=== PATIENT | female | born 1975 | race Caucasian/White ===

== ENCOUNTER 2020-03-14 10:20 | Outpatient (CLI) | payer OTHER, SELFPAY ==
--- NOTE | 2020-03-14 11:00 | NEURO_ITS ---
Patient Number: [id number] Impression: # Complains of numbness of hands. # No Carpal Tunnel Syndrome. # Left ulnar neuropathy across the elbow. # Normal needle/EMG exam. # Clinical correlation recommended. Nerve Conduction Studies Anti Sensory Summary Table Stim Site NR Peak (ms) P-T Amp (?V) Site1 Site2 Delta-P (ms) Dist (cm) Moisés (m/s) Left Median Anti Sensory (2-3nd Digit) Wrist 3.0 84.3 Wrist 2-3nd Digit 3.0 14.0 47 Wrist 3.1 70.1 Wrist 2-3nd Digit 3.0 14.0 47 Right Median Anti Sensory (2-3nd Digit) Wrist 3.1 9.8 Wrist 2-3nd Digit 3.1 14.0 45 Wrist 3.2 59.6 Wrist 2-3nd Digit 3.1 14.0 45 Left Radial Anti Sensory (Base 1st Digit) Wrist 2.0 52.4 Wrist Base 1st Digit 2.0 0.0 Right Radial Anti Sensory (Base 1st Digit) Wrist 2.0 48.3 Wrist Base 1st Digit 2.0 0.0 Left Ulnar Anti Sensory (5th Digit) Wrist 2.8 77.3 Wrist 5th Digit 2.8 14.0 50 Right Ulnar Anti Sensory (5th Digit) Wrist 2.7 46.4 Wrist 5th Digit 2.7 14.0 52 Motor Summary Table Stim Site NR Onset (ms) O-P Amp (mV) Site1 Site2 Delta-0 (ms) Dist (cm) Moisés (m/s) Left Median Motor (Abd Poll Brev) Wrist 3.6 5.6 Elbow Wrist 4.9 27.0 55 Elbow 8.5 2.4 Right Median Motor (Abd Poll Brev) Wrist 3.5 4.9 Elbow Wrist 4.8 26.0 54 Elbow 8.3 4.8 Left Ulnar Motor (Abd Dig Minimi) Wrist 3.0 6.5 A Elbow Wrist 5.0 26.0 52 A Elbow 8.0 6.2 B Elbow Wrist 4.1 22.0 54 B Elbow 7.1 5.9 Right Ulnar Motor (Abd Dig Minimi) Wrist 2.8 7.1 A Elbow Wrist 4.2 27.0 64 A Elbow 7.0 6.1 F Wave Studies NR F-Lat (ms) L-R F-Lat (ms) Left Median (Mrkrs) (Abd Poll Brev) 27.49 0.06 Right Median (Mrkrs) (Abd Poll Brev) 27.54 0.06 Left Ulnar (Mrkrs) (Abd Dig Min) 28.99 0.93 Right Ulnar (Mrkrs) (Abd Dig Min) 28.06 0.93 EMG Side Muscle Nerve Root Ins Act Fibs Amp Dur Recrt Comment Right 1stDorInt Ulnar C8-T1 Nml Nml Nml Nml Nml Right Ext Indicis Radial (Post Int) C7-8 Nml Nml Nml Nml Nml Right Ext Digitorum Radial (Post Int) C7-8 Nml Nml Nml Nml Nml Right BrachioRad Radial C5-6 Nml Nml Nml Nml Nml Right PronatorTeres Median C6-7 Nml Nml Nml Nml Nml Right Abd Poll Brev Median C8-T1 Nml Nml Nml Nml Nml Left 1stDorInt Ulnar C8-T1 Nml Nml Nml Nml Nml Left Ext Indicis Radial (Post Int) C7-8 Nml Nml Nml Nml Nml Left Ext Digitorum Radial (Post Int) C7-8 Nml Nml Nml Nml Nml Left BrachioRad Radial C5-6 Nml Nml Nml Nml Nml Left PronatorTeres Median C6-7 Nml Nml Nml Nml Nml Left Abd Poll Brev Median C8-T1 Nml Nml Nml Nml Nml MTDD
== END 2020-03-14 10:21 | disposition home or self-care (01) ==
LOC: ANHNEURO 10:22
PROVIDERS: PCP Family Medicine; Visit Provider Orthopaedic Surgery
DX: R20.0 Anesthesia of skin (principal); G56.22 Lesion of ulnar nerve, left upper limb
CPT/HCPCS: 95886; 95911

== ENCOUNTER 2020-06-20 14:59 | Emergency (ER) | payer OTHER, SELFPAY ==
--- NOTE | ~2020-06-20 | CT_ITS ---
EXAMINATION: CT abdomen pelvis wo con DATE: 06/20/2020 15:19 INDICATION: Abdominal pain, history of colon cancer TECHNIQUE: Computed tomography (CT) of the abdomen and pelvis was performed without intravenous contr ast. The dose-length product (DLP) was 625.36 mGy-cm. Automated exposure control and iterative recons truction technique were employed. COMPARISON: 01/23/2019 FINDINGS: Minimal dependent atelectasis is present in the lung bases. The heart size is normal. A 6 m m pleural-based nodule of the left lower lobe is stable. The gallbladder is surgically absent. Puncta te calcifications in an otherwise normal spleen likely represent healed granulomatous disease. The li lester, pancreas, adrenal glands, and kidneys are normal. No pathologically enlarged abdominal or pelvic lymph nodes are identified. There is no free intraperitoneal gas or evidence of bowel obstruction. T here is mild lumbar spondylosis. There are changes of appendectomy. IMPRESSION: 1. No CT correlate for the patient's symptoms. Reviewed, dictated and finalized at location B.
[2020-06-20 14:58] VITALS: BP 126/67; PULSE 87; RESP 24; TEMP 36.8; O2SAT 98
[2020-06-20] MEDS: SODIUM CHLORIDE 0.9% IV 1,000 ML 999 ML IV CONT (15:33)
--- NOTE | 2020-06-20 15:47 | ED.ABDPAIN ---
HPI - Abdominal Pain General Chief Complaint: Abdominal Pain Stated Complaint: ABD PAIN/BLOOD IN STOOL Source: patient History of Present Illness HPI narrative: 44 years old white female, history of colon cancer 5 years ago, chemotherapy for 2 years, presents with daughter Kristel blood mixed with stool today. Patient had 5 bowel movements so far. Patient also complaining of diffuse abdominal pain, denies any fever, chills, nausea, vomiting. Patient oncologist at [facility]. Patient is a smoker, denies drinking alcohol. Patient does not take blood thinner. History of Graves' disease mental disorder, epilepsy, muscular spasm on chronic pain medication patient have home health care Related Data Home Medications Medication Instructions Recorded Confirmed lacosamide [Vimpat] 200 mg PO Q12H 11/29/19 11/29/19 lacosamide [Vimpat] 200 mg PO Q12H 06/20/20 sertraline mg 06/20/20 Allergies Allergy/AdvReac Type Severity Reaction Status Date / Time adhesive Allergy Unknown Other Verified 06/16/20 09:34 hydrocodone Allergy Unknown Dyspnea / Verified 06/16/20 09:34 SOB oxycodone Allergy Unknown Rash Verified 06/16/20 09:34 Sulfa (Sulfonamide Allergy Rash Verified 06/20/20 15:02 Antibiotics) Review of Systems Review of Systems: Narrative: CONSTITUTIONAL: Denies fever, chills, or sweats. EYES: Denies visual changes, redness, or discharge. ENT: Denies rhinorrhea, congestion, sore throat, or otalgia. CARDIOVASCULAR: Denies chest pain, palpitations, or edema. RESPIRATORY: Denies cough or dyspnea. GASTROINTESTINAL: Denies abdominal pain, nausea, vomiting, or diarrhea. GENITOURINARY: Denies dysuria or hematuria. SKIN: Denies rash or itching. MUSCULOSKELETAL: Denies back pain, joint pain, or myalgia. NEUROLOGIC: Denies headache, numbness, or weakness. PSYCHIATRIC: Denies anxiety or depression. COUNT INCLUDES THE [facility] Past Medical History Medical History Bipolar disorder Bloating Colon cancer Depression Epilepsy Fibromyalgia Graves disease Insomnia Neuropathy PTSD (post-traumatic stress disorder) Restless leg syndrome Stroke Thyroid disorder Surgical History Surgical History H/O total hysterectomy History of appendectomy History of cholecystectomy Family History Family History Sibling Carcinoma of colon Other Family history of arthritis Family history of malignant neoplasm Social History Social History Smoking packs per day: 1 Smoking cigarettes per day: 20.0 Years smoked: 27 Smoking pack-years: 27.00 Smoking status: Former smoker Alcohol intake: never Substance use: never Exam Narrative: Exam Narrative: General appearance: Well-developed, well-nourished Skin: Normal color Head: Normocephalic, nontraumatic Eyes: Clear conjunctiva ENT: Oropharynx normal, ears normal, nose normal Neck: Supple, nontender Chest and respiratory: Airway patent, no respiratory distress, no accessory muscle use Heart: Regular rate/rhythm Abdomen: Soft, diffuse tenderness. Rectal exam showed no stool or blood in the rectal pouch, guaiac stool is negative Vascular: Normal peripheral pulses, normal capillary refill. Musculoskeletal: Normal range of motion, nontender back Neurologic: Alert and oriented ?3, DAYCARE DIRECT[employer] is normal as tested, no gross motor deficit Course Course Emergency Course: Improving Vital Signs Vital signs: Vital Signs Temperature 36.8 C 06/20/20 14:58 Pulse Rate 87 06/20/20 14:58 Respiratory Rate 24 H 06/20/20 1
[2020-06-20] MEDS: MORPHINE SULFATE 4 MG/ML INJ IV PUSH (15:56)
[2020-06-20] MEDS: ONDANSETRON INJ 4 MG/2 ML VIAL IV PUSH (15:56)
[2020-06-20 15:59] LABS: Basophils Absolute Auto 0.1 K/mm3 (0.0-0.1); Basophils Percent Auto 0.8 % (0.2-1.2); Eosinophils Percent Auto 0.3 % (0-4.4); Hematocrit 37.1 % (37.0-47.0); Immature Granulocyte Absolute 0.03 K/mm3 (0.00-0.031); Immature Granulocyte Percent A 0.4 % (0-0.5); Lymphocytes Percent Auto 28.3 % (18.3-44.2); Mean Corpuscular Hemoglobin 32.7 pg (26-34); Mean Corpuscular Volume 93.5 fl (80-100); Mean Platelet Volume 10.2 fl (7.4-10.4); Monocytes Absolute Auto 0.5 K/mm3 (0.1-0.6); Monocytes Percent Auto 5.9 % (2.6-8.5); Neutrophils Percent Auto 64.3 % (45.5-73.1); Platelet Count Result 263 k/mm3 (150-375); Red Blood Count 3.97 M/mm3 (4.2-5.4); Red Cell Distribution Width 12.6 % (11.5-14.5); White Blood Count 7.8 K/mm3 (4.5-10.0)
[2020-06-20 16:06] LABS: Add Urine Microscopic? YES; Appearance Urine Clear (Clear); Bacteria Urine Trace /hpf; Bilirubin Urine Negative (Negative); Blood Urine 1+ (Negative); Color Urine Yellow (Yellow); Glucose Urine UA Negative (Negative); Ketones Urine Negative (Negative); Leukocyte Esterase Ur Trace LEU/UL (Negative); Mucus Urine Heavy /lpf; Nitrate Urine Negative (Negative); Protein Urine 1+ mg/dL (Negative); RBC Urine 0-2 /hpf (0-2); Specific Grav Ur 1.026 (1.001-1.035); Squamous Epithelial Cell Urine Few /hpf (Few); Urobilinogen Urine Negative mg/dL (<2.0)
[2020-06-20 16:07] LABS: Alanine Aminotransferase 28 U/L (4-35); Albumin Level 4.1 g/dL (3.5-5.1); Alkaline Phosphatase 67 U/L (38-126); Anion Gap 7.7 mmol/L (7-16); Aspartate Amino Transferase 23 U/L (14-36); Bilirubin,Total 0.3 mg/dL (0.2-1.3); Blood Urea Nitrogen 16 mg/dL (7-17); Calcium 8.8 mg/dL (8.4-10.2); Carbon Dioxide 27 mmol/L (22-30); Chloride 110 mmol/L (98-107); Estimated CRCL calculation 72 ml/min; Estimated Glomerular Filt Rate > 60; Glucose 103 mg/dL (65-105); Lipase 78 U/L (23-300); Potassium 3.7 mmol/L (3.4-5.0); Sodium 141 mmol/L (137-145)
== END 2020-06-20 17:21 | disposition home or self-care (01) ==
PROVIDERS: Emergency Provider Emergency Medicine; PCP Family Medicine
DX: K62.5 Hemorrhage of anus and rectum (principal); R10.84 Generalized abdominal pain; E05.00 Thyrotoxicosis with diffuse goiter without thyrotoxic crisis or storm; G40.909 Epilepsy, unspecified, not intractable, without status epilepticus; F31.9 Bipolar disorder, unspecified; M79.7 Fibromyalgia; F43.10 Post-traumatic stress disorder, unspecified; G25.81 Restless legs syndrome; Z86.73 Personal history of transient ischemic attack (TIA), and cerebral infarction without residual deficits; F17.210 Nicotine dependence, cigarettes, uncomplicated; Z85.038 Personal history of other malignant neoplasm of large intestine
CPT/HCPCS: 36415; 74176; 80053; 81001; 83690; 85025; 96361; 96374; 96375; 99284; J2270; J2405; J7030

== ENCOUNTER 2020-07-01 01:07 | Outpatient (CLI) | payer OTHER, SELFPAY ==
[2020-07-01 18:11] LABS: SARS-CoV-2 RNA PCR Negative
== END 2020-07-01 01:08 | disposition home or self-care (01) ==
LOC: ANHCOVIDDT 01:07
PROVIDERS: PCP Family Medicine; Visit Provider Internal Medicine Gastroenterology
DX: Z01.812 Encounter for preprocedural laboratory examination (principal); Z11.59 Encounter for screening for other viral diseases
CPT/HCPCS: 87635; C9803; U0003

== ENCOUNTER 2020-07-04 01:42 | Day surgery (SDC) | payer OTHER, SELFPAY ==
[2020-06-26 14:43] VITALS: BMI 31.2
[2020-07-04 10:49] VITALS: BP 119/50; PULSE 61; RESP 16; TEMP 36.2; O2SAT 98; BMI 30.1
[2020-07-04] MEDS: LACTATED RINGERS 1,000 ML 150 ML IV CONT (11:03)
--- NOTE | 2020-07-04 11:31 | WPDHPUPDATE1 ---
History and Physical Update Update Date/Time: 07/04/20 11:31 History and Physical has been reviewed, including an updated exam of the patient. There are NO changes in the patient's condition. Risks, benefits, and alternatives have been discussed and questions answered. Patient agrees to proceed with procedure.
--- NOTE | 2020-07-04 11:34 | P.PNAN_ITS ---
Anes - Initial Pre Proc Eval Procedure: Operation Date: 07/04/20 12:00 Proposed Procedures p Esophagogastroduodenoscopy&Screen Colon - Brian Huertas MD Date/Time: 07/04/20 11:34 Surgeon: Brian Huertas MD Pre Op Diagnosis: Reflux,Fam Hx Of Colon CA Patient Data Age: 44 Gender: F Height: 5 ft 1 in Weight: 72.4 kg Last Vital Signs Temp 97.1 F L 07/04/20 10:49 Pulse 61 07/04/20 10:49 Resp 16 07/04/20 10:49 BP 119/50 L 07/04/20 10:49 Pulse Ox 98 07/04/20 10:49 Allergies Allergy/AdvReac Type Severity Reaction Status Date / Time adhesive Allergy Unknown blisters Verified 07/04/20 10:47 hydrocodone Allergy Unknown Dyspnea / Verified 07/04/20 10:47 SOB oxycodone Allergy Unknown Rash Verified 07/04/20 10:47 Sulfa (Sulfonamide Allergy Rash Verified 07/04/20 10:47 Antibiotics) Home Medications Medication Instructions Recorded Confirmed Type lacosamide [Vimpat] 200 mg PO Q12H 11/29/19 06/26/20 History atorvastatin 40 mg tablet 40 mg PO DAILY #30 tablet 02/09/20 06/26/20 Rx cyanocobalamin (vitamin B-12) 1,000 mcg IM MONTHLY #10 ml 02/09/20 06/26/20 Rx 1,000 mcg/mL injection solution montelukast 10 mg tablet 10 mg PO DAILY #90 tablet 03/16/20 06/26/20 Rx trazodone 100 mg tablet 100 mg PO HS #30 tablet 04/05/20 06/26/20 Rx levothyroxine 137 mcg tablet 137 mcg PO DAILY #30 tablet 04/18/20 06/26/20 Rx aripiprazole 10 mg tablet 10 mg PO DAILY #30 tablet 05/29/20 06/26/20 Rx gabapentin 800 mg tablet 800 mg PO TID #90 tablet 05/29/20 06/26/20 Rx meloxicam 15 mg tablet 15 mg PO DAILY #30 tablet 05/29/20 06/26/20 Rx dicyclomine 10 mg PO QID #20 cap 06/20/20 06/26/20 Rx sertraline 10 mg PO DAILY 06/20/20 06/26/20 History tramadol 50 mg PO Q6H PRN #20 tablet NS 06/20/20 06/26/20 Rx Patient hx anesthesia problems: none Family hx anesthesia problems: none [facility] Social History Social History Smoking packs per day: 1 Smoking cigarettes per day: 20.0 Years smoked: 27 Smoking pack-years: 27.00 Smoking status: Former smoker Alcohol intake: never Substance use: never Anes - Eval Final PreProcedure Day of Procedure 07/04/20 11:34 Patient weight: normal Heart: regular rate and rhythm Lungs: clear to auscultation Airway: Mallampati scale class II Neurological: alert and oriented Last oral intake: >/= 8 hours ASA classification: III Emergent: no Anesthetic plan: proceed Anesthesia type and monitoring: general GIVS and standard monitoring Informed Consent: The patient's anesthetic plan and its attendant risks and benefits were discussed with the patient/family/POA. Questions were solicited and answers provided to the satisfaction of the patient/family/POA.
[2020-07-04 12:18] VITALS: BP 87/63; PULSE 72; RESP 26; O2SAT 94
[2020-07-04 12:28] VITALS: BP 89/44; PULSE 72; RESP 21; O2SAT 100
--- NOTE | 2020-07-04 12:29 | SUR.PHASEII ---
1218 pt received from intra-op. Drowsy. Audible upper airway congestion. O2 at 8L/mask. Hypotensive. Cough noted. 1225 Attempted to wean O2 to 4L/NC. Pt desated to 89% yet is awake and asking for something to drink. Seizure pads continued.
[2020-07-04 12:30] VITALS: BP 104/48; PULSE 71; RESP 20; O2SAT 92
[2020-07-04 12:38] VITALS: BP 96/60; PULSE 68; RESP 25; O2SAT 96
[2020-07-04 12:45] VITALS: O2SAT 98
== END 2020-07-04 13:15 | disposition home or self-care (01) ==
PROVIDERS: PCP Family Medicine; Visit Provider Internal Medicine Gastroenterology
PROC: 0DJ08ZZ Inspection of Upper Intestinal Tract, Via Natural or Artificial Opening Endoscopic (ICD-10-PCS; CPT 43235; principal; 2020-07-04 12:00)
DX: Z12.11 Encounter for screening for malignant neoplasm of colon (principal); K57.30 Diverticulosis of large intestine without perforation or abscess without bleeding; D12.5 Benign neoplasm of sigmoid colon; K64.8 Other hemorrhoids; Z85.038 Personal history of other malignant neoplasm of large intestine; K21.9 Gastro-esophageal reflux disease without esophagitis; K44.9 Diaphragmatic hernia without obstruction or gangrene; K29.50 Unspecified chronic gastritis without bleeding; Z87.891 Personal history of nicotine dependence; Z92.21 Personal history of antineoplastic chemotherapy
CPT/HCPCS: 45385; 43239; 88305; J2704; J7120

== ENCOUNTER 2020-07-06 15:27 | Emergency (ER) | payer OTHER, SELFPAY ==
[2020-07-06] VITALS (8 sets, daily range): BP systolic 104–146; BP diastolic 53–65; PULSE 80–84; RESP 18–19; TEMP 36.1–36.8; O2SAT 95–100
--- NOTE | ~2020-07-06 | CT_ITS ---
EXAMINATION: CT abdomen pelvis w con EXAM DATE: 07/06/2020 18:14 INDICATION: Low abdominal pain, nausea. Hiatal hernia. TECHNIQUE: Spiral CT of the abdomen and pelvis was performed following intravenous injection of 100 m L Omnipaque 350. Axial, coronal and sagittal images were reviewed. The dose-length product (DLP) fo r this examination was 423.58 mGy-cm. The exposure was tailored according to patient size (auto mA e xposure control), and iterative reconstruction (ASIR) was used as additional dose reduction technique . Comparison is made to prior examination from 06/20/2020. FINDINGS: The liver, spleen, adrenal glands and pancreas are unremarkable. There are cholecystectomy clips. Portal and splenic veins are patent. Kidneys enhance symmetrically. There is no hydronephr osis. The uterus is not identified and has likely been surgically resected. The bladder is unremar kable. There is no retroperitoneal or pelvic lymphadenopathy. The appendix is not positively visualized. There is no pericecal inflammatory change to suggest appe ndicitis. There is small sliding gastroesophageal hiatal hernia. There is expected amount of colon ic stool. No free intraperitoneal gas. The heart is normal in size. There are no pericardial or pleural effusions. The lung bases are unremarkable. There are no osteoblastic or osteolytic lesions identified. Sclerotic but intact L5 pars. IMPRESSION: 1. No acute intra-abdominal findings. Reviewed, dictated and finalized at location A.
--- NOTE | 2020-07-06 15:52 | ECG_ITS ---
Measurements Intervals [place] Rate: 67 P: 39 NC: 165 QRS: 63 QRSD: 92 T: 54 QT: 394 QTc: 418 Interpretive Statements SINUS RHYTHM MINIMAL Q WAVES- INFERIOR LEADS NONSPECIFIC T-WAVE ABNORMALITY- ANTERIOR LEADS BORDERLINE ECG Electronically Signed On 07-06-2020 17:05:00 CDT by Clay Trinh D.O.
--- NOTE | 2020-07-06 15:54 | ED.ABDPAIN ---
HPI - Abdominal Pain General Chief Complaint: Abdominal Pain Stated Complaint: ABD pain Time Seen by Provider: 07/06/20 15:39 Source: patient Mode of arrival: ambulatory Limitations: no limitations History of Present Illness HPI narrative: This patient is a 44 year old female with history fibromyalgia, Bipolar, hiatal hernia who presents for evaluation of lower abdominal pain s/p colonoscopy and midchest pain. PAtient states 2 days ago she had a colonoscopy performed by Dr. Jesus brennan. She states she developed constant lower abdominal pain after the colonoscopy. She states, it feels likes I'm having endometriosis, but I don't have the parts . She has been able to pass gas and she has had a normal bowel movement since her procedure. She denies fever, vomiting. She denies any urinary complaints. She also reports she is having intermittent midsternal chest pain. She has had similar pain in the past and she states its similar to pain caused by her hiatal hernia. She states no medication works for her pain. She has no cough or fever. MD elicited complaint: abdominal pain Related Data Home Medications Medication Instructions Recorded Confirmed lacosamide [Vimpat] 200 mg PO Q12H 11/29/19 06/26/20 sertraline 10 mg PO DAILY 06/20/20 06/26/20 Allergies Allergy/AdvReac Type Severity Reaction Status Date / Time adhesive Allergy Unknown blisters Verified 07/06/20 15:35 hydrocodone Allergy Unknown Dyspnea / Verified 07/06/20 15:35 SOB oxycodone Allergy Unknown Rash Verified 07/06/20 15:35 Sulfa (Sulfonamide Allergy Rash Verified 07/06/20 15:35 Antibiotics) Review of Systems Review of Systems: All systems reviewed & are unremarkable except as noted in HPI and below Constitutional: Constitutional: Denies chills, Denies fever(s) and Denies weakness Cardiovascular: Cardiovascular: Reports chest pain and Reports radiating jaw, neck or arm pain Respiratory: Respiratory: Denies cough, Denies dyspnea and Denies wheezing Gastrointestinal: Gastrointestinal: Reports abdominal pain, Denies diarrhea, Reports nausea and Denies vomiting Musculoskeletal: Musculoskeletal: Denies back pain [facility] Social History Social History Smoking packs per day: 1 Smoking cigarettes per day: 20.0 Years smoked: 27 Smoking pack-years: 27.00 Smoking status: Former smoker Alcohol intake: never Substance use: never Gender identity (if verbalized by the patient): Female Exam Const: General: no acute distress and alert Orientation/consciousness: patient oriented x3 Eyes: Pupils: Equal, round and reactive pupils present EOM: EOMs intact bilaterally Chest: Chest palpation & inspection: normal inspection of the chest Resp: Effort & Inspection: normal respiratory effort, no retractions and no use of accessory muscles Auscultation: clear to auscultation bilaterally Cardio: Rate: regular rate Rhythm: regular rhythm Heart sounds: no murmurs GI: GI Palp: Yes Soft to palpation, Yes Tenderness to palpation present (GI) (bilateral lower abdominal tenderness), No Guarding due to palpation present (GI), No Rigid due to palpation and No Hernia present Back/Spine/Pelvis: Back: no CVA tenderness Skin: General skin exam: normal color Rashes: no rashes Neuro: General: patient oriented x3 and moves all extremities Course Reevaluation(s) Reevaluation #1: This patient presented with abdominal pain. She never appeared to be in distress but due to recent history of coloscopy and biopsy I repeated CT scan to rule out perforation. PAtient has atypical chest pain. Her symptoms are likely chronic. She will follow up with PCP Date: 07/06/20 Time: 19:08 Vital Signs Vital signs: Vital Signs Temperature 97.0 F L 07/06/20 15:28 Pulse Rate 80 07/06/20 15:28 Respiratory Rate 18 07/06/20 15:28 Blood Pressure 146/64 H 07/06/20 15:28 Pulse Oximetry 95 07/06
[2020-07-06 16:35] LABS: Basophils Absolute Auto 0.1 K/mm3 (0.0-0.1); Basophils Percent Auto 0.9 % (0.2-1.2); Eosinophils Percent Auto 0.1 % (0-4.4); Hematocrit 34.9 % (37.0-47.0); Hemoglobin 12.4 g/dL (12.0-15.0); Immature Granulocyte Absolute 0.02 K/mm3 (0.00-0.031); Immature Granulocyte Percent A 0.2 % (0-0.5); Lymphocytes Absolute Auto 2.29 K/mm3 (0.9-3.2); Lymphocytes Percent Auto 28.4 % (18.3-44.2); Mean Corpuscular HGB Conc 35.5 g/dl (32-36); Mean Corpuscular Hemoglobin 32.7 pg (26-34); Mean Corpuscular Volume 92.1 fl (80-100); Mean Platelet Volume 11.4 fl (7.4-10.4); Monocytes Absolute Auto 0.4 K/mm3 (0.1-0.6); Monocytes Percent Auto 5.5 % (2.6-8.5); Neutrophils Absolute Auto 5.2 K/mm3 (1.3-6.7); Neutrophils Percent Auto 64.9 % (45.5-73.1); Platelet Count Result 219 k/mm3 (150-375); Red Blood Count 3.79 M/mm3 (4.2-5.4); Red Cell Distribution Width 12.3 % (11.5-14.5); White Blood Count 8.1 K/mm3 (4.5-10.0)
[2020-07-06 16:42] LABS: Troponin I < 0.012 ng/mL (0.000-0.034)
[2020-07-06 16:45] LABS: Alanine Aminotransferase 15 U/L (4-35); Alkaline Phosphatase 64 U/L (38-126); Anion Gap 6 mmol/L (8-16); Aspartate Amino Transferase 17 U/L (14-36); Bilirubin,Total 0.2 mg/dL (0.2-1.3); Blood Urea Nitrogen 17 mg/dL (7-17); Calcium 9.2 mg/dL (8.4-10.2); Carbon Dioxide 27 mmol/L (22-30); Chloride 105 mmol/L (98-107); Estimated CRCL calculation 70 ml/min; Estimated Glomerular Filt Rate > 60; Glucose 125 mg/dL (65-105); Lipase 65 U/L (23-300); Potassium 2.9 mmol/L (3.4-5.0); Sodium 138 mmol/L (137-145)
[2020-07-06] MEDS: DICYCLOMINE HCL INJ 20 MG/2 ML VIAL IM (17:01)
[2020-07-06 17:05] LABS: Add Urine Microscopic? YES; Appearance Urine Clear (Clear); Bacteria Urine Trace /hpf; Bilirubin Urine Negative (Negative); Blood Urine 1+ (Negative); Color Urine Yellow (Yellow); Glucose Urine UA Negative (Negative); Ketones Urine Trace mg/dL (Negative); Leukocyte Esterase Ur Trace LEU/UL (Negative); Mucus Urine Few /lpf; Nitrate Urine Negative (Negative); Protein Urine 1+ mg/dL (Negative); Squamous Epithelial Cell Urine Few /hpf (Few); Urobilinogen Urine Negative mg/dL (<2.0)
[2020-07-06 17:10] LABS: Specific Grav Ur 1.032 (1.001-1.035)
--- NOTE | 2020-07-06 18:14 | PC.NURSE ---
Pt returns from CT. Denies any relief what so ever from bentyl IM.
--- NOTE | 2020-07-06 19:05 | PC.NURSE ---
Report to CRISTELA Schneider, to continue care.
[2020-07-06] MEDS: BELLADONNA ALK/PHENOB ELIX 10 ML, MAG HYDROX/ALUMINUM HYD/SIMETH 30 ML, LIDOCAINE HCL 2... PO (19:14)
== END 2020-07-06 19:20 | disposition home or self-care (01) ==
PROVIDERS: Emergency Provider General Practice; PCP Family Medicine
DX: R07.89 Other chest pain (principal); R10.30 Lower abdominal pain, unspecified; F17.210 Nicotine dependence, cigarettes, uncomplicated; F31.9 Bipolar disorder, unspecified; M79.7 Fibromyalgia
CPT/HCPCS: 36415; 74177; 80053; 81001; 83690; 84484; 85025; 93005; 96372; 99284; A9270; J0500; Q9967

== ENCOUNTER 2020-11-22 22:11 | Emergency (ER) | payer OTHER, SELFPAY ==
[2020-11-22 22:08] VITALS: BP 141/92; PULSE 92; RESP 18; TEMP 37.1; O2SAT 96
[2020-11-22] MEDS: BELLADONNA ALK/PHENOB ELIX 10 ML, MAG HYDROX/ALUMINUM HYD/SIMETH 30 ML, LIDOCAINE HCL 2... PO (22:49)
[2020-11-22] MEDS: ONDANSETRON INJ 4 MG/2 ML VIAL IV PUSH (22:49)
[2020-11-22 23:04] LABS: Basophils Absolute Auto 0.1 K/mm3 (0.0-0.1); Basophils Percent Auto 0.7 % (0.2-1.2); Eosinophils Percent Auto 0.2 % (0-4.4); Hematocrit 39.3 % (37.0-47.0); Hemoglobin 13.7 g/dL (12.0-15.0); Immature Granulocyte Absolute 0.05 K/mm3 (0.00-0.031); Immature Granulocyte Percent A 0.6 % (0-0.5); Lymphocytes Percent Auto 29.7 % (18.3-44.2); Mean Corpuscular HGB Conc 34.9 g/dl (32-36); Mean Corpuscular Hemoglobin 31.9 pg (26-34); Mean Corpuscular Volume 91.6 fl (80-100); Mean Platelet Volume 9.7 fl (7.4-10.4); Monocytes Absolute Auto 0.5 K/mm3 (0.1-0.6); Monocytes Percent Auto 5.3 % (2.6-8.5); Neutrophils Absolute Auto 5.8 K/mm3 (1.3-6.7); Neutrophils Percent Auto 63.5 % (45.5-73.1); Platelet Count Result 303 k/mm3 (150-375); Red Blood Count 4.29 M/mm3 (4.2-5.4); Red Cell Distribution Width 12.3 % (11.5-14.5); White Blood Count 9.1 K/mm3 (4.5-10.0)
[2020-11-22 23:17] LABS: Alanine Aminotransferase 17 U/L (4-35); Albumin Level 3.9 g/dL (3.5-5.1); Alkaline Phosphatase 84 U/L (38-126); Anion Gap 7 mmol/L (8-16); Aspartate Amino Transferase 18 U/L (14-36); Bilirubin,Total 0.2 mg/dL (0.2-1.3); Blood Urea Nitrogen 17 mg/dL (7-17); Calcium 9.1 mg/dL (8.4-10.2); Carbon Dioxide 25 mmol/L (22-30); Chloride 104 mmol/L (98-107); Estimated CRCL calculation 74 ml/min; Estimated Glomerular Filt Rate > 60; Glucose 104 mg/dL (65-105); Lipase 111 U/L (23-300); Potassium 3.8 mmol/L (3.4-5.0); Sodium 136 mmol/L (137-145)
--- NOTE | 2020-11-22 23:58 | ED.ABDPAIN ---
HPI - Abdominal Pain General Chief Complaint: Abdominal Pain Stated Complaint: N/V Time Seen by Provider: 11/22/20 22:15 History of Present Illness HPI narrative: Patient is a 45-year-old female with history of hiatal hernia who presents ER with nausea and vomiting as well as burning discomfort to her chest and back of her throat. Reports she is scheduled to follow-up with surgery in the next few days for further evaluation of repair of her hiatal hernia. She is not currently on any acid reflux medication and has no antiemetics at home. Cannot describe any aggravating factors that may of precipitated this this evening. No alleviating factors. Patient also reports mild epigastric discomfort. No radiation. Related Data Home Medications Medication Instructions Recorded Confirmed lacosamide [Vimpat] 200 mg PO Q12H 11/29/19 06/26/20 sertraline 10 mg PO DAILY 06/20/20 06/26/20 Allergies Allergy/AdvReac Type Severity Reaction Status Date / Time adhesive Allergy Unknown blisters Verified 11/22/20 09:52 hydrocodone Allergy Unknown Dyspnea / Verified 11/22/20 09:52 SOB Sulfa (Sulfonamide Allergy Rash Verified 11/22/20 09:52 Antibiotics) Review of Systems Review of Systems: All systems reviewed & are unremarkable except as noted in HPI and below Constitutional: Constitutional: Denies chills, Denies fever(s) and Denies weakness ENT: Denies nasal congestion and Denies sore throat Cardiovascular: Cardiovascular: Denies chest pain and Denies radiating jaw, neck or arm pain Respiratory: Respiratory: Denies cough, Denies dyspnea and Denies wheezing Gastrointestinal: Gastrointestinal: Reports abdominal pain, Reports heartburn, Denies diarrhea, Reports nausea and Reports vomiting PMFSH Past Medical History Medical History Bipolar disorder Bloating Colon cancer Depression Epilepsy Fibromyalgia Graves disease Hiatal hernia High cholesterol Insomnia Nausea and vomiting in adult Neuropathy PTSD (post-traumatic stress disorder) Restless leg syndrome Stroke Thyroid disorder Uterine cancer Surgical History Surgical History H/O total hysterectomy History of appendectomy History of cholecystectomy History of elbow surgery left elbow History of neck surgery Family History Family History (Updated 11/22/20 @ 09:56 by Luzmaria Rojas CMA) Sibling Carcinoma of colon Grandparent Acute myocardial infarction Other Family history of arthritis Family history of malignant neoplasm Social History Social History (Updated 11/22/20 @ 09:57 by Luzmaria Rojas CMA) Smoking packs per day: 1 Smoking cigarettes per day: 20.0 Years smoked: 28 Smoking pack-years: 28.00 Smoking status: Current every day smoker Tobacco type: cigarettes Alcohol intake: current Substance use: never Gender identity (if verbalized by the patient): Female Exam Narrative: Exam Narrative: GENERAL: Well-appearing, well-nourished, and in no acute distress. HEAD: Normocephalic, atraumatic. ENT: Mucous membranes moist. CHEST: Clear to auscultation. No respiratory distress. HEART: Regular rate and rhythm. Normal peripheral pulses. ABDOMEN: Soft, nontender, nondistended. EXTREMITIES: Normal range of motion. No edema. NEURO: Alert and oriented x3. PSYCH: Normal mood and affect. Course Course Emergency Course: Unremarkable labs. Patient received GI cocktail and Zofran with mild improvement of symptoms. Suspect reflux esophagitis. Vital Signs Vital signs: Vital Signs Temperature 98.7 F 11/22/20 22:08 Pulse Rate 92 11/22/20 22:08 Respiratory Rate 18 11/22/20 22:08 Blood Pressure 141/92 H 11/22/20 22:08 Pulse Oximetry 96 11/22/20 22:08 Temperature 98.7 F 11/22/20 22:08 Pulse Rate 92 11/22/20 22:08 Respiratory Rate 18 11/22/20 22:08 Blood Pressure 141/92 H 12
[2020-11-23 00:07] VITALS: BP 134/86; PULSE 82; RESP 16; O2SAT 94
== END 2020-11-23 00:08 | disposition home or self-care (01) ==
PROVIDERS: Emergency Provider Emergency Medicine; PCP Family Medicine
DX: K20.90 Esophagitis, unspecified without bleeding (principal); F31.9 Bipolar disorder, unspecified; G40.909 Epilepsy, unspecified, not intractable, without status epilepticus; M79.7 Fibromyalgia; E05.00 Thyrotoxicosis with diffuse goiter without thyrotoxic crisis or storm; E78.5 Hyperlipidemia, unspecified
CPT/HCPCS: 36415; 80053; 83690; 85025; 96374; 99284; A9270; J2405

== ENCOUNTER → 2021-02-19 01:42 | Outpatient (CLI) | payer OTHER, SELFPAY ==
[2021-02-19 20:12] LABS: SARS-CoV-2 RNA PCR Negative
== END ==
PROVIDERS: PCP Family Medicine; Visit Provider Surgery
DX: Z01.812 Encounter for preprocedural laboratory examination (principal); Z20.822 Contact with and (suspected) exposure to COVID-19
CPT/HCPCS: C9803; U0003; U0005

== ENCOUNTER 2021-02-19 11:29 | Outpatient (CLI) | payer OTHER, SELFPAY ==
--- NOTE | ~2021-02-19 | XR_ITS ---
EXAMINATION: XR chest 2V EXAM DATE: 02/19/2021 11:51 INDICATION: Z01.818 - Encounter for other preprocedural examination. TECHNIQUE: Frontal and lateral projections of the chest obtained and reviewed. Comparison is made to prior examination from 09/21/2019. FINDINGS: The lungs are clear. There are no pleural effusions. The cardiomediastinal silhouette is within normal limits. There is no pneumothorax suspected. The bones and soft tissues are unremarkab le. Lower cervical fusion. IMPRESSION: Unremarkable chest x-ray exam. Reviewed, dictated and finalized at location A.
--- NOTE | 2021-02-19 11:30 | ECG_ITS ---
Measurements Intervals [place] Rate: 73 P: 46 NM: 159 QRS: 82 QRSD: 90 T: 50 QT: 400 QTc: 444 Interpretive Statements SINUS RHYTHM MINIMAL Q WAVES- INFERIOR LEADS NONSPECIFIC T-WAVE ABNORMALITY- ANTEROLATERAL LEADS BASELINE ARTIFACT- I, II, III, AVR, AVL, AVF BORDERLINE ECG Electronically Signed On 02-19-2021 11:46:19 CDT by Clay Trinh D.O.
[2021-02-19 11:56] LABS: Basophils Absolute Auto 0.1 K/mm3 (0.0-0.1); Basophils Percent Auto 0.9 % (0.2-1.2); Eosinophils Percent Auto 0.1 % (0-4.4); Hematocrit 43.6 % (37.0-47.0); Hemoglobin 15.1 g/dL (12.0-15.0); Immature Granulocyte Absolute 0.03 K/mm3 (0.00-0.031); Immature Granulocyte Percent A 0.4 % (0-0.5); Lymphocytes Absolute Auto 2.26 K/mm3 (0.9-3.2); Lymphocytes Percent Auto 26.5 % (18.3-44.2); Mean Corpuscular HGB Conc 34.6 g/dl (32-36); Mean Corpuscular Hemoglobin 32.1 pg (26-34); Mean Corpuscular Volume 92.6 fl (80-100); Mean Platelet Volume 10.2 fl (7.4-10.4); Monocytes Absolute Auto 0.4 K/mm3 (0.1-0.6); Monocytes Percent Auto 4.8 % (2.6-8.5); Neutrophils Absolute Auto 5.8 K/mm3 (1.3-6.7); Neutrophils Percent Auto 67.3 % (45.5-73.1); Platelet Count Result 323 k/mm3 (150-375); Red Blood Count 4.71 M/mm3 (4.2-5.4); White Blood Count 8.5 K/mm3 (4.5-10.0)
[2021-02-19 12:08] LABS: Anion Gap 4 mmol/L (8-16); Blood Urea Nitrogen 11 mg/dL (7-17); Calcium 9.5 mg/dL (8.4-10.2); Carbon Dioxide 31 mmol/L (22-30); Chloride 103 mmol/L (98-107); Estimated Glomerular Filt Rate > 60; Glucose 98 mg/dL (65-105); Potassium 3.9 mmol/L (3.4-5.0); Sodium 138 mmol/L (137-145)
== END 2021-02-19 11:30 | disposition home or self-care (01) ==
LOC: ANHSURGERY 11:32
PROVIDERS: PCP Family Medicine; Visit Provider Surgery
DX: Z01.818 Encounter for other preprocedural examination (principal); K44.9 Diaphragmatic hernia without obstruction or gangrene; R94.31 Abnormal electrocardiogram [ECG] [EKG]
CPT/HCPCS: 36415; 71046; 80048; 85025; 86850; 86900; 86901; 93005; C9803; U0003; U0005

== ENCOUNTER 2021-02-23 13:30 | Inpatient (IN) | payer OTHER, SELFPAY ==
[2021-02-13 09:57] VITALS: BMI 31.0
--- NOTE | 2021-02-20 10:06 | PM.IMHP ---
H&P: HPI History of Present Illness Date/Time: 02/20/21 10:06 Chief Complaint: Vomiting and severe heartburn Narrative: Patient is a 45-year-old woman who has longstanding history of severe heartburn and often times vomiting. 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 She has been on Protonix twice a day with minimal relief. She has heartburn or vomiting every day despite medication and upright posture. She had a soft a ADELINE manometry at [facility] which showed a hypotensive lower esophageal sphincter but otherwise normal esophageal motility. She also had pH testing which showed a DeMeester score extremely elevated of 39. After thorough discussion she is taken to surgery now for laparoscopic Deanna fundoplication. She had an EGD last June which did not show esophagitis. It showed a minimal hiatal hernia and some gastric erosions. A CT scan of the abdomen pelvis done last June showed a small hiatal hernia as well. She has had abdominal surgery for colon cancer and had radiation therapy. She has had a hysterectomy appendectomy and cholecystectomy as well. She is a smoker, half pack cigarettes per day Review of Systems Review of Systems: All systems reviewed & are unremarkable except as noted in HPI and below Constitutional: Constitutional: Denies headache(s) ENT: Denies headache(s) Cardiovascular: Cardiovascular: Denies chest pain and Denies dyspnea Respiratory: Respiratory: Denies cough and Denies dyspnea Gastrointestinal: Gastrointestinal: Reports as per HPI, Reports bloating, Denies constipation, Reports heartburn, Reports vomiting and Reports other (Colonoscopy last June was negative) Musculoskeletal: Musculoskeletal: Reports other (History fibromyalgia) Neurologic: Denies confusion, Denies headache(s) and Reports other (Has seizure disorder, on medication) Psychiatric: Psychiatric: Reports abnormal sleep pattern and Reports other (Has history of bipolar disorder and depression) Comments: History PTSD [facility] Past Medical History Medical History Bipolar disorder Bloating Colon cancer Depression Epilepsy Fibromyalgia Graves disease Hiatal hernia High cholesterol Insomnia Nausea and vomiting in adult Neuropathy PTSD (post-traumatic stress disorder) Restless leg syndrome Seizure Stroke Thyroid disorder Uterine cancer Surgical History Surgical History H/O total hysterectomy History of appendectomy History of cholecystectomy History of elbow surgery left elbow History of neck surgery Family History Family History Sibling Carcinoma of colon Grandparent Acute myocardial infarction Other Family history of arthritis Family history of malignant neoplasm Social History Social History Smoking packs per day: 0.5 Smoking cigarettes per day: 10.0 Years smoked: 28 Smoking pack-years: 14.00 Smoking status: Current every day smoker Tobacco type: cigarettes Alcohol intake: current Substance use: never Gender identity (if verbalized by the patient): Female Spiritual care concerns: No Meds Home Medications and Allergies Home Medications Medication Instructions Recorded Confirmed Type lacosamide [Vimpat] 200 mg PO Q12H 11/29/19 02/13/21 History atorvastatin 40 mg tablet 40 mg PO DAILY #30 tablet 02/09/20 02/13/21 Rx cyanocobalamin (vitamin B-12) 1,000 mcg IM MONTHLY #10 ml 02/09/20 02/13/21 Rx 1,000 mcg/mL injection solution trazodone 100 mg tablet 100 mg PO HS #30 tablet 04/05/20 02/13/21 Rx sertraline [Zoloft] 10 mg PO DAILY 06/20/20 02/13/21 History gabapentin 800 mg tablet 800 mg PO TID #90 tablet 10/31/20 02/13/21 Rx meloxicam 15 mg tablet 15 mg PO DAILY #30 tablet 10/31/20 02/13/21 Rx
[2021-02-22] VITALS (15 sets, daily range): BP systolic 108–148; BP diastolic 56–95; PULSE 70–89; RESP 14–16; TEMP 36.3–36.7; O2SAT 94–100; BMI 32.2
--- NOTE | 2021-02-22 09:09 | WPDANESEPPF ---
Anes - Initial Pre Proc Eval Procedure: Operation Date: 02/22/21 11:00 Proposed Procedures p Laparoscopic Deanna Fundoplication - Omar Huerta MD Date/Time: 02/22/21 09:09 Surgeon: Omar Huerta MD Pre Op Diagnosis: GERD, Hiatal Hernia Patient Data Age: 45 Gender: F Height: 5 ft 2 in Weight: 77 kg Allergies Allergy/AdvReac Type Severity Reaction Status Date / Time adhesive Allergy Severe blisters Verified 02/22/21 09:27 Sulfa (Sulfonamide Allergy Severe Rash Verified 02/22/21 09:27 Antibiotics) hydrocodone Allergy Mild Dyspnea / Verified 02/22/21 09:27 SOB Home Medications Medication Instructions Recorded Confirmed Type lacosamide [Vimpat] 200 mg PO Q12H 11/29/19 02/13/21 History atorvastatin 40 mg tablet 40 mg PO DAILY #30 tablet 02/09/20 02/13/21 Rx cyanocobalamin (vitamin B-12) 1,000 mcg IM MONTHLY #10 ml 02/09/20 02/13/21 Rx 1,000 mcg/mL injection solution trazodone 100 mg tablet 100 mg PO HS #30 tablet 04/05/20 02/13/21 Rx sertraline [Zoloft] 10 mg PO DAILY 06/20/20 02/22/21 History gabapentin 800 mg tablet 800 mg PO TID #90 tablet 10/31/20 02/22/21 Rx meloxicam 15 mg tablet 15 mg PO DAILY #30 tablet 10/31/20 02/13/21 Rx levothyroxine 137 mcg tablet 137 mcg PO DAILY #30 tablet 11/13/20 02/22/21 Rx aripiprazole [Abilify] 10 mg PO DAILY 02/13/21 02/13/21 History pantoprazole [Protonix] 40 mg PO BID 02/13/21 02/13/21 History Patient hx anesthesia problems: none Family hx anesthesia problems: none [facility] Past Medical History Medical History Bipolar disorder Bloating Colon cancer Depression Epilepsy Fibromyalgia Graves disease Hiatal hernia High cholesterol Insomnia Nausea and vomiting in adult Neuropathy PTSD (post-traumatic stress disorder) Restless leg syndrome Seizure Stroke Thyroid disorder Uterine cancer Surgical History Surgical History H/O total hysterectomy History of appendectomy History of cholecystectomy History of elbow surgery left elbow History of neck surgery Family History Family History Sibling Carcinoma of colon Grandparent Acute myocardial infarction Other Family history of arthritis Family history of malignant neoplasm Social History Social History Smoking packs per day: 0.5 Smoking cigarettes per day: 10.0 Years smoked: 28 Smoking pack-years: 14.00 Smoking status: Current every day smoker Tobacco type: cigarettes Alcohol intake: current Substance use: never Living arrangements: alone Gender identity (if verbalized by the patient): Female Spiritual care concerns: No Anes - Eval Final PreProcedure Day of Procedure 02/22/21 09:09 Patient weight: overweight Heart: regular rate and rhythm Lungs: clear to auscultation Airway: Mallampati scale class II Neurological: alert and oriented Last oral intake: >/= 8 hours ASA classification: III Emergent: no Anesthetic plan: proceed Anesthesia type and monitoring: general ETT and standard monitoring Informed Consent: The patient's anesthetic plan and its attendant risks and benefits were discussed with the patient/family/POA. Questions were solicited and answers provided to the satisfaction of the patient/family/POA.
[2021-02-22] MEDS: LACTATED RINGERS 1,000 ML 30 ML IV CONT ×2 (09:10→13:39)
--- NOTE | 2021-02-22 10:00 | WPDHPUPDATE1 ---
History and Physical Update Update Date/Time: 02/22/21 10:00 History and Physical has been reviewed, including an updated exam of the patient. There are NO changes in the patient's condition. Risks, benefits, and alternatives have been discussed and questions answered. Patient agrees to proceed with procedure.
[2021-02-22] MEDS: ceFAZolin 2 GM/D5W 50 ML 2 GM/50 ML BAG IVPB (10:49)
[2021-02-22] MEDS: BUPIVACAINE/EPINEPHRINE 0.5% 10 ML VIAL 30 ML INFILTRATE (11:38)
[2021-02-22] MEDS: fentaNYL CITRATE INJ (*CRX) 100 MCG/2 ML VIAL 25 MCG IV PUSH ×10 (13:50→14:29)
--- NOTE | 2021-02-22 14:14 | PM.PROC ---
Procedure Note - Detailed Date of procedure: 02/22/21 Pre-op diagnosis: GERD Gastroesophageal reflux disease Post-op diagnosis: same Procedure performed: Laparoscopic Deanna fundoplication Description of procedure: The patient was taken to surgery and induced into general anesthesia. The abdomen was prepped and draped. Local anesthesia was infiltrated just above the umbilicus in the midline for the initial trocar placement. Incision was made and then the varies needle was used. Saline drop technique showed intraperitoneal location. We insufflated until the abdomen was distended. A 10 mm Optiview you trocar was then placed under visualization. We then placed the remaining trocars in the usual fashion. All trocars were 10 11 ports except the right subcostal trocar which was a 12 mm port. five ports in total were placed. The patient was placed in reverse Trendelenburg. The liver retractor was then placed through the right lateral 12 mm port. The lateral segment of the left lobe of the liver was then elevated exposing the hiatus. The hiatal hernia was fairly small. The LigaSure was used for hemostasis and much of the dissection. The hepatogastric ligament was divided which showed the right ac very well. We then dissected just inside the right ac and started to free up the hiatal hernia in this area. Some traction was placed on the stomach to assist in this. The stomach and esophagus were mobilized into the stomach from the patient's right side. The junction in with the left ac was also able to be seen. Some of the hernia and adhesions were taken down from the anterior aspect of the hiatus. From there, we elevated the upper half of the stomach as well as the greater omentum. The greater curvature of the stomach was exposed. The LigaSure was used to divide the greater omentum from the upper portion of the stomach at the greater curvature. We continued this dissection up to the left ac. Short gastrics were divided in this fashion. Note seizure and to the spleen were noted. Some omental adhesions to the back of the stomach had to be taken down as well. This all went well with really no bleeding. I dissected the hernia sac and mobilize some of the esophagus from the patient's left side. We then dropped the stomach back in its normal position. We dissected some additional esophagus up into the mediastinum from the area near the right ac. I then used LigaSure and excised the hernia sac. It was discarded. We placed a Moriah drain around the distal esophagus and secured it to itself with clips. We still needed a few more cm of esophagus to adequately reduce the hiatal hernia. I dissected into the mediastinum from both the right and the left side of the esophagus freeing adhesions in all directions. The LigaSure was used for this as well. There was really no bleeding at all. Having mobilized the esophagus well up near the upper chest, we reassessed the intra-abdominal length of esophagus. It now appeared to be at least 6 cm. We then proceeded with the closure of the hiatus. Ethibond suture and the Endo stitch were used to close the hiatus. We started posteriorly and used interrupted suture. Several sutures were placed and eventually the hiatus was closed nicely with a small opening for the esophagus. The fundic wrap was then positioned. I used the shoe shine technique to make sure the wrap was not spiraled. With the wrap in good position, serial Bougie catheters were passed through the oropharynx into the stomach. With a [address], the wrap was sutured with Ethibond suture and the Endo Stitch. The 2 ends of the stomach were sutured to the esophagus with 2 stitches. A 3rd stitch was used to suture the stomach to itself. The bougie is were removed. The Anne Marie drain was removed. We suctioned the area. All looked good. The hiatus did not need any further sutures. The wrap looked to be in very good position. We then used the C
[2021-02-22] MEDS: ONDANSETRON INJ 4 MG/2 ML VIAL IV PUSH (14:27)
[2021-02-22] MEDS: HYDROmorphone HCL INJ (*CRX) 1 MG/ML SYR 0.5 MG IV PUSH ×4 (14:48→15:03)
--- NOTE | 2021-02-22 15:25 | PC.NURSE ---
This patient, Renata Young, was admitted to Medical Room 347-. Patient/family oriented to hospital policies and general routines including ID bracelet, bed and alarms, visiting hours, pain management, procedures, bathroom and other care routines, personal items, smoking policy, room service/diet, and visiting hours. Information on how to activate the Rapid Response Team has been discussed. Patient/Family are encouraged to report perceived risks to care and to ask questions if they do not understand what they are told or what they should do.
[2021-02-22] MEDS: IBUPROFEN IV 800 MG/200 ML 800 MG/200 ML BAG 400 MG IVPB ×2 (15:57→21:46)
[2021-02-22] MEDS: LACTATED RINGERS 1,000 ML 100 ML IV CONT (15:57)
[2021-02-22] MEDS: GABAPENTIN 400 MG CAPSULE 800 MG PO (16:19)
--- NOTE | 2021-02-22 18:14 | ECG_ITS ---
Measurements Intervals [place] Rate: 66 P: 61 HI: 203 QRS: 72 QRSD: 88 T: 52 QT: 402 QTc: 424 Interpretive Statements SINUS RHYTHM NONSPECIFIC T-WAVE ABNORMALITY- ANTERIOR LEADS BASELINE ARTIFACT- II, III, AVF BORDERLINE ECG Electronically Signed On 02-23-2021 7:07:47 CDT by Clay Trinh D.O.
[2021-02-22] MEDS: CALCIUM CARBONATE (TUMS) 500 MG (200 MG ELEMENTAL) PO (18:36)
--- NOTE | 2021-02-22 20:00 | WPDCN ---
Assessment and Plan Assessment and plan (1) Chest pain: Code(s): R07.9 - Chest pain, unspecified Status: Acute Assessment and Plan: This has been in ongoing issue for the patient for the last month and is most likely musculoskeletal in etiology given exam findings. EKG showed no acute changes in really was unremarkable. Troponins are pending at the time of this dictation. Monitor on telemetry overnight. (2) Gastroesophageal reflux disease: Code(s): K21.9 - Gastro-esophageal reflux disease without esophagitis Status: Acute Assessment and Plan: Postoperative day 0, status post Deanna fundoplication. Wound care and pain control will be deferred to primary service. (3) Acquired hypothyroidism: Code(s): E03.9 - Hypothyroidism, unspecified Status: Acute Assessment and Plan: Continue levothyroxine and check TSH. (4) Seizure disorder: Code(s): G40.909 - Epilepsy, unspecified, not intractable, without status epilepticus Status: Acute Assessment and Plan: Continue lacosamide. (5) Tobacco dependence: Code(s): F17.200 - Nicotine dependence, unspecified, uncomplicated Status: Acute Assessment and Plan: Smoking cessation encouraged. (6) Psychiatric illness: Code(s): F99 - Mental disorder, not otherwise specified Status: Acute Assessment and Plan: Including bipolar disorder, anxiety depression, schizophrenia, and PTSD. Continue sertraline and aripiprazole. Additional Plan Thank you for allowing us to participate in this patient's care. Please do not hesitate to contact us with any questions. Supervising physician for this medical consultation is Dr. Aamir Barry. HPI Data of Consult Date/Time: 02/22/21 20:00 Requesting Physician: Omar Huetra MD Primary Care Provider: Kurt Zuniga DO Consult Narrative Narrative: This is a 45-year-old female status post laparoscopic Deanna fundoplication today whom the hospitalist service has been consulted for evaluation after she began complaining of chest pain. Her medical history is significant for GERD, dyslipidemia, post-ablative hypothyroidism, seizure disorder, several underlying psychiatric illnesses, seizure disorder, and history of both colon and uterine cancer. She reports diffuse, nonradiating anterior chest pain which she describes as sharp and shooting in nature. It has been pretty consistent since it started and it seems to be made worse with cough, deep inspiration, and palpation. It seems to be getting a bit better after she was given Percocet for her postoperative pain. With further questioning she tells me that she has had this pain every day for approximately 1 month and she has not told anybody about it before today. She has not had exertional chest pain, palpitations, nausea, vomiting, or sweats. She has no known history of coronary artery disease but it sounds as though she had a cardiac catheterization several years ago when she was in [place], [place] which was unremarkable. She denies lower extremity edema, calf pain, and tenderness. No history of venous thromboembolism. She is not having any significant gas or abdominal distension. Review of Systems Review of Systems: Narrative: Twelve systems were reviewed with pertinent positives and negatives as per HPI. No cold or flu symptoms. She denies fever and chills. No nausea or vomiting postoperatively. Denies orthopnea, PND, and lower extremity edema. No dysuria. Except as documented, all other systems were reviewed and are negative. [facility] Past Medical History Medical History (Updated 02/22/21 @ 23:02 by Alicia Garner PA-C) Acquired hypothyroidism Post-ablative hypothyroidism. Bipolar disorder Cerebrovascular accident With resultant memory loss. Colon cancer Status post polypectomy with oral chemotherapy and radiation. Depression Dyslipidemia Fibromyalg
[2021-02-22] MEDS: LACOSAMIDE (*CRX) 200 MG TABLET PO (20:28)
[2021-02-22] MEDS: oxyCODONE/ACETAMINOPHEN (*CRX) 5-325 MG TABLET 2 TABLET PO (20:28)
[2021-02-22] MEDS: traZODone HCL 50 MG TABLET 100 MG PO (20:28)
[2021-02-22] MEDS: ENOXAPARIN 30 MG/0.3 ML SYRINGE SUB-Q (20:29)
[2021-02-22 22:16] LABS: Hematocrit 35.1 % (37.0-47.0); Hemoglobin 12.3 g/dL (12.0-15.0)
[2021-02-22 22:28] LABS: Anion Gap 6 mmol/L (8-16); Blood Urea Nitrogen 9 mg/dL (7-17); Calcium 8.7 mg/dL (8.4-10.2); Carbon Dioxide 28 mmol/L (22-30); Chloride 104 mmol/L (98-107); Estimated CRCL calculation 67 ml/min; Estimated Glomerular Filt Rate > 60; Glucose 127 mg/dL (65-105); Sodium 138 mmol/L (137-145)
[2021-02-22 22:39] LABS: Troponin I < 0.012 ng/mL (0.000-0.034)
[2021-02-23] VITALS (9 sets, daily range): BP systolic 113–123; BP diastolic 54–69; PULSE 72–98; RESP 16–18; TEMP 36.1–36.3; O2SAT 96–97
[2021-02-23 01:22] LABS: Troponin I < 0.012 ng/mL (0.000-0.034)
[2021-02-23 03:47] LABS: Hematocrit 34.4 % (37.0-47.0); Hemoglobin 11.9 g/dL (12.0-15.0); Mean Corpuscular HGB Conc 34.6 g/dl (32-36); Mean Corpuscular Hemoglobin 31.6 pg (26-34); Mean Corpuscular Volume 91.5 fl (80-100); Platelet Count Result 241 k/mm3 (150-375); Red Blood Count 3.76 M/mm3 (4.2-5.4); Red Cell Distribution Width 11.9 % (11.5-14.5)
[2021-02-23] MEDS: IBUPROFEN IV 800 MG/200 ML 800 MG/200 ML BAG 400 MG IVPB ×4 (03:48→21:20)
[2021-02-23] MEDS: LACTATED RINGERS 1,000 ML 100 ML IV CONT (03:48)
[2021-02-23 03:59] LABS: Anion Gap 2 mmol/L (8-16); Blood Urea Nitrogen 8 mg/dL (7-17); Calcium 8.7 mg/dL (8.4-10.2); Carbon Dioxide 29 mmol/L (22-30); Chloride 107 mmol/L (98-107); Estimated CRCL calculation 75 ml/min; Estimated Glomerular Filt Rate > 60; Glucose 88 mg/dL (65-105); Potassium 3.8 mmol/L (3.4-5.0); Sodium 138 mmol/L (137-145)
[2021-02-23] MEDS: oxyCODONE/ACETAMINOPHEN (*CRX) 5-325 MG TABLET 2 TABLET PO ×2 (04:02→18:10)
[2021-02-23 04:10] LABS: Troponin I < 0.012 ng/mL (0.000-0.034)
[2021-02-23] MEDS: LEVOTHYROXINE SODIUM 112 MCG TABLET PO (05:31)
[2021-02-23] MEDS: LEVOTHYROXINE SODIUM 25 MCG TABLET PO (05:31)
[2021-02-23] MEDS: MORPHINE SULFATE (*CRX) 2 MG/ML INJ IV PUSH (05:32)
--- NOTE | 2021-02-23 07:40 | PM.PNGS ---
Progress Note: A&P Assessment and Plan (1) Gastroesophageal reflux disease: Code(s): K21.9 - Gastro-esophageal reflux disease without esophagitis Status: Chronic Assessment and Plan: Patient having fairly typical postoperative complaints presumably due to the mediastinal dissection performed at surgery. Trocar sites are tender but not inappropriately so. She has active bowel sounds and is tolerating liquids. She wants to know when she can have solid food. Advance to low fiber diet hat patient's discretion. Up walking today. Saline lock IV when taking p.o. well. P.r.n. analgesics as well as scheduled dose of IV ibuprofen. No complaints of gastroesophageal reflux or vomiting. (2) Psychiatric illness: Code(s): F99 - Mental disorder, not otherwise specified Status: Chronic Assessment and Plan: Continue home meds (3) Seizure disorder: Code(s): G40.909 - Epilepsy, unspecified, not intractable, without status epilepticus Status: Chronic Assessment and Plan: continue home meds (4) Tobacco dependence: Code(s): F17.200 - Nicotine dependence, unspecified, uncomplicated Status: Chronic Assessment and Plan: trying to quit Subjective Subjective Date/Time Seen: 02/23/21 07:40 Post Op day: 1 Patient reports: still having pain ( retrosternal pain, analgesics helped.), tolerating liquids well, no flatus and no bowel movement Interval history: Hospitalist saw patient last night for complaints of chest pain. Cardiac eval performed. Appears to be musculoskeletal. Patient having typical complaints of retrosternal pain presumably due to the mediastinal dissection during surgery. No reflux symptoms at all. No nausea. Review of Systems Review of Systems: All systems reviewed & are unremarkable except as noted in HPI and below Constitutional: Constitutional: Denies headache(s) Cardiovascular: Cardiovascular: Reports as per HPI and Reports chest pain ( Retrosternal chest discomfort.) Respiratory: Respiratory: Denies cough and Denies dyspnea Gastrointestinal: Gastrointestinal: Reports as per HPI Musculoskeletal: Musculoskeletal: Reports other ( Right hand edematous due to IV infiltration) Neurologic: Denies confusion and Denies headache(s) Exam Const: General: comfortable and no acute distress; No confusion Orientation/consciousness: patient oriented x3 and No confusion GI: Inspection: non-distended and incision ( all incisions dry and healing well) GI Palp: Yes abdominal tenderness, Yes Soft to palpation, Yes Tenderness to palpation present (GI) ( diffusely tender particularly upper abdomen, no peritoneal signs.), No Guarding due to palpation present (GI), No Palpable mass present and No Rebound tenderness present Auscultation: normal bowel sounds Neuro: General: patient oriented x3, no focal motor deficits and No confusion Extrem: General: no calf tenderness and no edema Right upper extremity: Extremity exam: right hand ( Hand edematous with bandage over recent IV site consistent with infiltrat) tenderness and swelling Psych: Affect: normal affect Insight: Good insight present (Psych) Judgement: Good judgement present (Psych) Objective Data Vital Signs Vital Signs: Vital Signs - 24 hr 02/22/21 08:25 02/22/21 13:39 02/22/21 13:50 Temperature 36.3 C L 36.3 C L Pulse Rate 87 89 81 Respiratory Rate 16 16 15 Blood Pressure 128/62 109/91 H 148/95 H Pulse Oximetry 98 96 100 02/22/21 14:05 02/22/21 14:10 02/22/21 14:20 Temperature Pulse Rate 78 70 73 Respiratory Rate 15 16 16 Blood Pressure 143/75 H 139/72 125/60 Pulse Oximetry 100 100 98 02/22/21 14:29 02/22/21 14:45 02/22/21 15:00 Temperature Pulse Rate 76 72 74 Respiratory Rate 14 14 14 Blood Pressure 131/66 126/72 116/57 L Pulse Oximetry 99 97 96 02/22/21 15:10 02/22/21 16:05 02/22/21 16:20 Temperature 36.3 C L 36.4 C Pulse Rate 84 80 76 Respiratory Rat
--- NOTE | 2021-02-23 08:00 | WPDANESPN ---
Anes - Prog Note Post-Op Date/Time: 02/23/21 08:00 Cardiovascular status: normal Respiratory status: normal Airway patency: baseline Mental status: baseline Post-Op hydration status: normal Vital Signs: Last Vital Signs Temp 36.1 C L 02/23/21 06:00 Pulse 84 02/23/21 06:00 Resp 18 02/23/21 06:00 BP 113/54 L 02/23/21 06:00 Pulse Ox 96 02/23/21 06:00 Pain Score (VAS): 0 I/O: Intake & Output 02/22/21 02/23/21 02/23/21 23:59 07:59 15:59 Intake Total 500 1500 Output Total 0 550 Balance 500 950 Laboratory Tests 02/23/21 03:41 02/23/21 03:41 02/22/21 02/22/21 02/22/21 22:03 22:03 22:03 WBC RBC Hgb 12.3 Hct 35.1 L MCV MCH MCHC RDW Plt Count MPV Sodium 138 Potassium 4.0 Chloride 104 Carbon Dioxide 28 Anion Gap 6 L BUN 9 Creatinine 0.90 Estim Creat Clear Calc 67 Estimated GFR > 60 Glucose 127 H Calcium 8.7 Troponin I < 0.012 02/23/21 02/23/21 02/23/21 00:49 03:41 03:41 WBC 10.0 RBC 3.76 L Hgb 11.9 L Hct 34.4 L MCV 91.5 MCH 31.6 MCHC 34.6 RDW 11.9 Plt Count 241 MPV 10.0 Sodium 138 Potassium 3.8 Chloride 107 Carbon Dioxide 29 Anion Gap 2 L BUN 8 Creatinine 0.80 Estim Creat Clear Calc 75 Estimated GFR > 60 Glucose 88 Calcium 8.7 Troponin I < 0.012 < 0.012 Post-procedural complaints: none Patient Feedback: Patient satisfied with anesthetic care.
[2021-02-23] MEDS: MORPHINE SULFATE (*CRX) 4 MG/ML INJ IV PUSH (08:45)
[2021-02-23] MEDS: SERTRALINE HCL 50 MG TABLET 100 MG PO (08:46)
[2021-02-23] MEDS: GABAPENTIN 400 MG CAPSULE 800 MG PO ×3 (08:46→18:49)
[2021-02-23] MEDS: LACOSAMIDE (*CRX) 200 MG TABLET PO ×2 (08:46→21:20)
[2021-02-23] MEDS: PANTOPRAZOLE 40 MG TABLET PO (08:46)
[2021-02-23] MEDS: ATORVASTATIN 40 MG TABLET PO (08:46)
[2021-02-23] MEDS: ARIPiprazole 10 MG TABLET PO (08:47)
[2021-02-23] MEDS: ENOXAPARIN 40 MG/0.4 ML SYRINGE SUB-Q (08:47)
--- NOTE | 2021-02-23 10:37 | PM.IMPN ---
Progress Note: A&P Assessment and Plan (1) Chest pain: Code(s): R07.9 - Chest pain, unspecified Status: Acute Assessment and Plan: This has been in ongoing issue for the patient for the last month and is most likely musculoskeletal in etiology given exam findings. EKG showed no acute changes in really was unremarkable. Troponins are pending at the time of this dictation. Monitor on telemetry overnight. 02/23/21 10:37 This is a 45-year-old female status post laparoscopic Deanna fundoplication on 02/22 patient had complained of chest pain and was concerned possibly due to cardiac however 3 sets of cardiac enzymes are negative and there is no acute changes on her EKG most likely the chest pain is not due to cardiac disease rather secondary to recent surgical intervention, this morning patient states the pain is better, complains of abdominal pain, has not had any BM nor passing gas, denies any fever or chills, patient seen by her surgeon and on clear liquids. Will continue to follow the patient with you if you have any question please free to call us. (2) Gastroesophageal reflux disease: Code(s): K21.9 - Gastro-esophageal reflux disease without esophagitis Status: Chronic Assessment and Plan: Postoperative day 0, status post Deanna fundoplication. Wound care and pain control will be deferred to primary service. (3) Acquired hypothyroidism: Code(s): E03.9 - Hypothyroidism, unspecified Status: Acute Assessment and Plan: Continue levothyroxine and check TSH. (4) Seizure disorder: Code(s): G40.909 - Epilepsy, unspecified, not intractable, without status epilepticus Status: Chronic Assessment and Plan: Continue lacosamide. (5) Tobacco dependence: Code(s): F17.200 - Nicotine dependence, unspecified, uncomplicated Status: Chronic Assessment and Plan: Smoking cessation encouraged. (6) Psychiatric illness: Code(s): F99 - Mental disorder, not otherwise specified Status: Chronic Assessment and Plan: Including bipolar disorder, anxiety depression, schizophrenia, and PTSD. Continue sertraline and aripiprazole. Subjective Date/time seen: 02/23/21 10:37 This is a 45-year-old female status post laparoscopic Deanna fundoplication on 02/22 patient had complained of chest pain and was concerned possibly due to cardiac however 3 sets of cardiac enzymes are negative and there is no acute changes on her EKG most likely the chest pain is not due to cardiac disease rather secondary to recent surgical intervention, this morning patient states the pain is better, complains of abdominal pain, has not had any BM nor passing gas, denies any fever or chills, patient was seen by her surgeon and on clear liquids. Will continue to follow the patient with you if you have any question please free to call us. Review of Systems Review of Systems: All systems reviewed & are unremarkable except as noted in HPI and below Exam Narrative: Exam Narrative: Patient is comfortable, NAD HEENT: eyes are clear and none icteric LUNGS:CTA HEART: RR S1S2 ABD: BS+, Soft and nontender Lower extremities: no edema SKIN: nonjaundiced Neuro: grossly intact. Objective Data Vital Signs Vital Signs: Vital Signs - 24 hr 02/22/21 13:39 02/22/21 13:50 02/22/21 14:05 Temperature 97.3 F L Pulse Rate 89 81 78 Respiratory Rate 16 15 15 Blood Pressure 109/91 H 148/95 H 143/75 H Pulse Oximetry 96 100 100 02/22/21 14:10 02/22/21 14:20 02/22/21 14:29 Temperature Pulse Rate 70 73 76 Respiratory Rate 16 16 14 Blood Pressure 139/72 125/60 131/66 Pulse Oximetry 100 98 99 02/22/21 14:45 02/22/21 15:00 02/22/21 15:10 Temperature Pulse Rate 72 74 84 Respiratory Rate 14 14 16 Blood Pressure 126/72 116/57 L 119/61 Pulse Oximetry 97 96 96 02/22/21 16:05 02/22/21 16:20 02/22/21 16:50 Temperature 97.4 F L 97.6 F 98.0 F Pulse
[2021-02-23] MEDS: traZODone HCL 50 MG TABLET 100 MG PO (21:20)
[2021-02-24] VITALS (8 sets, daily range): BP systolic 115–122; BP diastolic 60–69; PULSE 63–97; RESP 16–18; TEMP 36–36.9; O2SAT 94–96
[2021-02-24] MEDS: oxyCODONE/ACETAMINOPHEN (*CRX) 5-325 MG TABLET 2 TABLET PO ×2 (00:20→06:22)
[2021-02-24] MEDS: IBUPROFEN IV 800 MG/200 ML 800 MG/200 ML BAG 400 MG IVPB (05:00)
[2021-02-24 06:10] LABS: Hemoglobin 11.3 g/dL (12.0-15.0); Mean Corpuscular HGB Conc 34.2 g/dl (32-36); Mean Corpuscular Hemoglobin 31.7 pg (26-34); Mean Corpuscular Volume 92.7 fl (80-100); Mean Platelet Volume 10.2 fl (7.4-10.4); Platelet Count Result 214 k/mm3 (150-375); Red Blood Count 3.56 M/mm3 (4.2-5.4); Red Cell Distribution Width 11.9 % (11.5-14.5); White Blood Count 5.2 K/mm3 (4.5-10.0)
[2021-02-24] MEDS: LEVOTHYROXINE SODIUM 112 MCG TABLET PO (06:22)
[2021-02-24] MEDS: LEVOTHYROXINE SODIUM 25 MCG TABLET PO (06:22)
[2021-02-24 06:29] LABS: Anion Gap 0 mmol/L (8-16); Blood Urea Nitrogen 7 mg/dL (7-17); Calcium 8.2 mg/dL (8.4-10.2); Carbon Dioxide 35 mmol/L (22-30); Chloride 104 mmol/L (98-107); Estimated CRCL calculation 67 ml/min; Estimated Glomerular Filt Rate > 60; Glucose 85 mg/dL (65-105); Magnesium 1.8 mg/dL (1.6-2.3); Potassium 3.3 mmol/L (3.4-5.0); Sodium 139 mmol/L (137-145)
[2021-02-24] MEDS: ENOXAPARIN 40 MG/0.4 ML SYRINGE SUB-Q (08:26)
[2021-02-24] MEDS: PANTOPRAZOLE 40 MG TABLET PO (08:26)
[2021-02-24] MEDS: ARIPiprazole 10 MG TABLET PO (08:26)
[2021-02-24] MEDS: SERTRALINE HCL 50 MG TABLET 100 MG PO (08:26)
[2021-02-24] MEDS: GABAPENTIN 400 MG CAPSULE 800 MG PO ×3 (08:26→17:23)
[2021-02-24] MEDS: ATORVASTATIN 40 MG TABLET PO (08:26)
[2021-02-24] MEDS: LACOSAMIDE (*CRX) 200 MG TABLET PO ×2 (08:26→20:18)
--- NOTE | 2021-02-24 09:41 | PM.PNGS ---
Progress Note: A&P Assessment and Plan (1) Gastroesophageal reflux disease: Code(s): K21.9 - Gastro-esophageal reflux disease without esophagitis Status: Chronic Assessment and Plan: still having quite a bit of postoperative pain. See no evidence of surgical complication. Will stop IV ibuprofen and changed to oral ibuprofen q.6 hours. Increase ambulation. Start MiraLax and Senokot to avoid significant constipation. Continue inpatient care as patient remains very uncomfortable. Possibly home tomorrow if improves. Continue low-fiber diet for now. (2) Bipolar disorder: Qualifiers: Active/Remission status: currently active Current bipolar episode type: depressed Current episode severity: mild Qualified Code(s): F31.31 - Bipolar disorder, current episode depressed, mild Code(s): F31.9 - Bipolar disorder, unspecified Status: Chronic (3) Fibromyalgia: Code(s): M79.7 - Fibromyalgia Status: Chronic (4) Smoker: Code(s): F17.200 - Nicotine dependence, unspecified, uncomplicated Status: Chronic (5) Seizure disorder: Code(s): G40.909 - Epilepsy, unspecified, not intractable, without status epilepticus Status: Chronic Subjective Subjective Date/Time Seen: 02/24/21 09:41 Post Op day: 2 Patient reports: still having pain, tolerating a regular diet ( Tolerating low fiber diet), no bowel movement, afebrile and other ( no reflux or vomiting) Review of Systems Review of Systems: All systems reviewed & are unremarkable except as noted in HPI and below Constitutional: Constitutional: Denies chills, Denies fever(s) and Denies headache(s) Respiratory: Respiratory: Denies cough and Denies dyspnea Gastrointestinal: Gastrointestinal: Reports as per HPI, Reports abdominal pain ( upper abdomen and retrosternal), Denies heartburn and Denies vomiting Neurologic: Denies confusion and Denies headache(s) Exam Const: General: comfortable and no acute distress; No confusion Orientation/consciousness: patient oriented x3 and No confusion GI: Inspection: non-distended and incision ( incisions all healing well) GI Palp: Yes Soft to palpation, Yes Tenderness to palpation present (GI) ( tender across upper abdomen, less than yesterday), No Guarding due to palpation present (GI) and No Rebound tenderness present Auscultation: normal bowel sounds Neuro: General: patient oriented x3, no focal motor deficits and No confusion Extrem: General: no calf tenderness and no edema Psych: Affect: normal affect Insight: Good insight present (Psych) Judgement: Good judgement present (Psych) Objective Data Vital Signs Vital Signs: Vital Signs - 24 hr 02/23/21 12:00 02/23/21 14:00 02/23/21 16:00 Temperature 36.2 C L Pulse Rate 78 73 78 Respiratory Rate 16 Blood Pressure 123/69 Pulse Oximetry 96 02/23/21 20:00 02/23/21 22:00 02/24/21 00:00 Temperature 36.3 C L Pulse Rate 76 72 73 Respiratory Rate 16 Blood Pressure 123/63 Pulse Oximetry 97 02/24/21 04:00 02/24/21 05:42 02/24/21 08:00 Temperature 36.2 C L Pulse Rate 70 66 63 Respiratory Rate 18 Blood Pressure 120/69 Pulse Oximetry 94 Intake/Output Intake/Output: Intake & Output 02/21/21 02/22/21 02/23/21 02/24/21 23:59 23:59 23:59 23:59 Intake Total 800 4130 500 Output Total 0 3600 1650 Balance 800 530 -1150 Meds/Results Medications: Active Medications Generic Name Dose Route Start Last Admin Trade Name Freq PRN Reason Stop Dose Admin Acetaminophen 500 mg 02/22/21 15:18 Acetaminophen 500 Mg Tablet PO Q6H PRN Mild Pain (1-3) or Fever Aripiprazole 10 mg 02/23/21 09:00 02/24/21 08:26 Aripiprazole 10 Mg Tablet PO 10 mg DAILY JUANITA Administration Atorvastatin Calcium 40 mg 02/23/21 09:00 02/24/21 08:26 Atorvastatin 40 Mg Tablet PO 40 mg DAILY JUANITA Administration Calcium Carbonate 200 mg 02/22/21 18:24 02/22/21 18:36
[2021-02-24] MEDS: POTASSIUM CHLORIDE 20 MEQ TABLET 40 MEQ PO (09:43)
[2021-02-24] MEDS: polyethylene glycoL 3350 17 GM POWD.PACK PO (10:32)
[2021-02-24] MEDS: IBUPROFEN 600 MG TABLET PO ×2 (12:22→17:22)
--- NOTE | 2021-02-24 12:28 | PM.IMPN ---
Progress Note: A&P Assessment and Plan (1) Chest pain: Code(s): R07.9 - Chest pain, unspecified Status: Acute Assessment and Plan: This has been in ongoing issue for the patient for the last month and is most likely musculoskeletal in etiology given exam findings. EKG showed no acute changes in really was unremarkable. Troponins are pending at the time of this dictation. Monitor on telemetry overnight. 02/24/21 12:28 This is a 45-year-old female status post laparoscopic Deanna fundoplication on 02/22 patient had complained of chest pain and was concerned possibly due to cardiac however 3 sets of cardiac enzymes are negative and there is no acute changes on her EKG most likely the chest pain is not due to cardiac disease rather secondary to recent surgical intervention, this morning patient states the pain is better, complains of abdominal pain, has not had any BM nor passing gas, denies any fever or chills, patient seen by her surgeon and on clear liquids. Will continue to follow the patient with you if you have any question please free to call us. 02/24 today patient states sees passing gas but no BM, seen by her surgeon discontinue IV ibuprofen and switched to Oral, encouraged to ambulate and started the patient on Senokot and MiraLax with low-fiber diet to help prevent constipation, patient denies any chest pain, patient still complains abdominal but denies any fever or chills remains clinically stable will continue to follow the patient (2) Gastroesophageal reflux disease: Code(s): K21.9 - Gastro-esophageal reflux disease without esophagitis Status: Chronic Assessment and Plan: Postoperative day 0, status post Deanna fundoplication. Wound care and pain control will be deferred to primary service. (3) Acquired hypothyroidism: Code(s): E03.9 - Hypothyroidism, unspecified Status: Acute Assessment and Plan: Continue levothyroxine and check TSH. (4) Seizure disorder: Code(s): G40.909 - Epilepsy, unspecified, not intractable, without status epilepticus Status: Chronic Assessment and Plan: Continue lacosamide. (5) Tobacco dependence: Code(s): F17.200 - Nicotine dependence, unspecified, uncomplicated Status: Chronic Assessment and Plan: Smoking cessation encouraged. (6) Psychiatric illness: Code(s): F99 - Mental disorder, not otherwise specified Status: Chronic Assessment and Plan: Including bipolar disorder, anxiety depression, schizophrenia, and PTSD. Continue sertraline and aripiprazole. Subjective Date/time seen: 02/24/21 12:28 This is a 45-year-old female status post laparoscopic Deanna fundoplication on 02/22 patient had complained of chest pain and was concerned possibly due to cardiac however 3 sets of cardiac enzymes are negative and there is no acute changes on her EKG most likely the chest pain is not due to cardiac disease rather secondary to recent surgical intervention, this morning patient states the pain is better, complains of abdominal pain, has not had any BM nor passing gas, denies any fever or chills, patient seen by her surgeon and on clear liquids. Will continue to follow the patient with you if you have any question please free to call us. 02/24 today patient states sees passing gas but no BM, seen by her surgeon discontinue IV ibuprofen and switched to Oral, encouraged to ambulate and started the patient on Senokot and MiraLax with low-fiber diet to help prevent constipation, patient denies any chest pain, patient still complains abdominal but denies any fever or chills remains clinically stable will continue to follow the patient Review of Systems Review of Systems: All systems reviewed & are unremarkable except as noted in HPI and below Exam Narrative: Exam Narrative: Patient is comfortable, NAD HEENT: eyes are clear and none icteric LUNGS:CTA HEART: RR S1S2 ABD: BS+, S
[2021-02-24] MEDS: oxyCODONE/ACETAMINOPHEN (*CRX) 5-325 MG TABLET 1 TABLET PO ×2 (14:37→18:21)
--- NOTE | 2021-02-24 15:42 | PC.NURSE ---
Patient stated after her walk I felt something pop. I inspected the incision sites and checked the patient for signs of anything abnormal. Incision sites are in tact with glue present. No visual issues that I can see. Will continue to monitor patient.
[2021-02-24] MEDS: traZODone HCL 50 MG TABLET 100 MG PO (20:18)
[2021-02-24] MEDS: SENNA/DOCUSATE SODIUM TABLET 2 TAB PO (20:18)
[2021-02-25] VITALS: PULSE 68
[2021-02-25] MEDS: oxyCODONE/ACETAMINOPHEN (*CRX) 5-325 MG TABLET 2 TABLET PO (01:45)
[2021-02-25 04:00] VITALS: PULSE 68
[2021-02-25 05:26] LABS: Hematocrit 33.4 % (37.0-47.0); Hemoglobin 11.5 g/dL (12.0-15.0); Mean Corpuscular HGB Conc 34.4 g/dl (32-36); Mean Corpuscular Hemoglobin 31.4 pg (26-34); Mean Corpuscular Volume 91.3 fl (80-100); Platelet Count Result 228 k/mm3 (150-375); Red Blood Count 3.66 M/mm3 (4.2-5.4); Red Cell Distribution Width 11.9 % (11.5-14.5); White Blood Count 5.4 K/mm3 (4.5-10.0)
[2021-02-25] MEDS: IBUPROFEN 600 MG TABLET PO ×2 (05:32)
[2021-02-25] MEDS: LEVOTHYROXINE SODIUM 112 MCG TABLET PO (05:32)
[2021-02-25] MEDS: LEVOTHYROXINE SODIUM 25 MCG TABLET PO (05:32)
[2021-02-25 05:48] LABS: Anion Gap -1 mmol/L (8-16); Blood Urea Nitrogen 5 mg/dL (7-17); Calcium 8.3 mg/dL (8.4-10.2); Carbon Dioxide 33 mmol/L (22-30); Chloride 108 mmol/L (98-107); Estimated CRCL calculation 67 ml/min; Estimated Glomerular Filt Rate > 60; Glucose 88 mg/dL (65-105); Potassium 3.5 mmol/L (3.4-5.0); Sodium 140 mmol/L (137-145)
[2021-02-25 06:00] VITALS: BP 137/77; PULSE 73; RESP 18; TEMP 36.5; O2SAT 98
[2021-02-25 08:00] VITALS: PULSE 82
[2021-02-25] MEDS: ARIPiprazole 10 MG TABLET PO (09:22)
[2021-02-25] MEDS: ATORVASTATIN 40 MG TABLET PO (09:22)
[2021-02-25] MEDS: POTASSIUM CHLORIDE 20 MEQ TABLET 40 MEQ PO (09:22)
[2021-02-25] MEDS: GABAPENTIN 400 MG CAPSULE 800 MG PO (09:22)
[2021-02-25] MEDS: PANTOPRAZOLE 40 MG TABLET PO (09:23)
[2021-02-25] MEDS: SERTRALINE HCL 50 MG TABLET 100 MG PO (09:23)
[2021-02-25] MEDS: LACOSAMIDE (*CRX) 200 MG TABLET PO (09:25)
--- NOTE | 2021-02-25 10:11 | PM.DS ---
DS: Admitting Diagnosis Admitting Diagnosis Admitting Diagnosis: severe gastroesophageal reflux disease smoker bipolar affective disorder epilepsy fibromyalgia DS: Discharge Diagnosis Discharge Diagnosis (1) Gastroesophageal reflux disease: Code(s): K21.9 - Gastro-esophageal reflux disease without esophagitis Status: Chronic Assessment and Plan: patient underwent laparoscopic Deanna fundoplication on 02/22/[address] gillette (2) Tobacco dependence: Code(s): F17.200 - Nicotine dependence, unspecified, uncomplicated Status: Chronic (3) Seizure disorder: Code(s): G40.909 - Epilepsy, unspecified, not intractable, without status epilepticus Status: Chronic (4) Bipolar disorder: Qualifiers: Active/Remission status: currently active Current bipolar episode type: depressed Current episode severity: mild Qualified Code(s): F31.31 - Bipolar disorder, current episode depressed, mild Code(s): F31.9 - Bipolar disorder, unspecified Status: Chronic (5) Fibromyalgia: Code(s): M79.7 - Fibromyalgia Status: Chronic DS: Summary Hospital Course Hospital Course: Patient is a 45-year-old woman who has longstanding history of severe heartburn and often times vomiting. 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 She has been on Protonix twice a day with minimal relief. She has heartburn or vomiting every day despite medication and upright posture. She had a soft a ADELINE manometry at [facility] which showed a hypotensive lower esophageal sphincter but otherwise normal esophageal motility. She also had pH testing which showed a DeMeester score extremely elevated of 39. After thorough discussion she is taken to surgery now for laparoscopic Deanna fundoplication. She had an EGD last June which did not show esophagitis. It showed a minimal hiatal hernia and some gastric erosions. A CT scan of the abdomen pelvis done last June showed a small hiatal hernia as well. She has had abdominal surgery for colon cancer and had radiation therapy. She has had a hysterectomy appendectomy and cholecystectomy as well. She is a smoker, half pack cigarettes per day. She underwent laparoscopic Deanna fundoplication on 02/22/2021. The surgery went well. The night after surgery the patient was complaining of substernal chest pain. Hospitalist service was consulted and saw her that night. It was felt the pain was chronic and somewhat exacerbated from her recent surgery. Cardiac enzymes and EKG were checked and were negative. Hospitalist service continue to follow the patient but her chest pain improved and in fact resolved by the time of discharge. Postoperatively she did not experience any symptoms of reflux or vomiting. She did have considerable amount of epigastric pain appropriate for postoperative condition. She was started on liquids and gradually increased to a low-fiber diet which she tolerated well. Pain control was rather slow to convert to oral analgesics but did so by the day of discharge 02/25/2021. The patient was eating well, ambulating, wounds were healing well and she was comfortable on oral analgesics. She was discharged in good condition on postop day #3 02/25/2021. Time spent discussing smoking cessation with patient: 3 to 10 minutes Status at Discharge Functional status at discharge: independent ambulation Overall status at discharge: patient is progressing back to baseline Time Spent with Patient Time attestation: Total time spent providing and/or coordinating discharge services: Specific discharge activities: Ambulate 5-6 times per day. Avoid smoking. Chew food slowly and eat small bites. Exam Const: General: comfortable and no acute distress; No confusion Orientation/consciousness: patient oriented x3 and No confusion Resp: Effort & Inspection: normal respiratory effort
--- NOTE | 2021-02-25 10:17 | PM.IMPN ---
Progress Note: A&P Assessment and Plan (1) Chest pain: Code(s): R07.9 - Chest pain, unspecified Status: Acute Assessment and Plan: This has been in ongoing issue for the patient for the last month and is most likely musculoskeletal in etiology given exam findings. EKG showed no acute changes in really was unremarkable. Troponins are pending at the time of this dictation. Monitor on telemetry overnight. 02/25/21 10:17 This is a 45-year-old female status post laparoscopic Deanna fundoplication on 02/22 patient had complained of chest pain and was concerned possibly due to cardiac however 3 sets of cardiac enzymes are negative and there is no acute changes on her EKG most likely the chest pain is not due to cardiac disease rather secondary to recent surgical intervention, this morning patient states the pain is better, complains of abdominal pain, has not had any BM nor passing gas, denies any fever or chills, patient seen by her surgeon and on clear liquids. Will continue to follow the patient with you if you have any question please free to call us. 02/24 today patient states sees passing gas but no BM, seen by her surgeon discontinue IV ibuprofen and switched to Oral, encouraged to ambulate and started the patient on Senokot and MiraLax with low-fiber diet to help prevent constipation, patient denies any chest pain, patient still complains abdominal but denies any fever or chills remains clinically stable will continue to follow the patient 02/25, today patient denies any chest pain, states passing gas but still no BM, able to tolerate p.o. intake denies any nausea or vomiting, patient is on Senokot and MiraLax to help with constipation, patient is clinically stable will be seen by her surgeon may discharge home today. (2) Gastroesophageal reflux disease: Code(s): K21.9 - Gastro-esophageal reflux disease without esophagitis Status: Chronic Assessment and Plan: Postoperative day 0, status post Deanna fundoplication. Wound care and pain control will be deferred to primary service. (3) Acquired hypothyroidism: Code(s): E03.9 - Hypothyroidism, unspecified Status: Acute Assessment and Plan: Continue levothyroxine and check TSH. (4) Seizure disorder: Code(s): G40.909 - Epilepsy, unspecified, not intractable, without status epilepticus Status: Chronic Assessment and Plan: Continue lacosamide. (5) Tobacco dependence: Code(s): F17.200 - Nicotine dependence, unspecified, uncomplicated Status: Chronic Assessment and Plan: Smoking cessation encouraged. (6) Psychiatric illness: Code(s): F99 - Mental disorder, not otherwise specified Status: Chronic Assessment and Plan: Including bipolar disorder, anxiety depression, schizophrenia, and PTSD. Continue sertraline and aripiprazole. Subjective Date/time seen: 02/25/21 10:17 This is a 45-year-old female status post laparoscopic Deanna fundoplication on 02/22 patient had complained of chest pain and was concerned possibly due to cardiac however 3 sets of cardiac enzymes are negative and there is no acute changes on her EKG most likely the chest pain is not due to cardiac disease rather secondary to recent surgical intervention, this morning patient states the pain is better, complains of abdominal pain, has not had any BM nor passing gas, denies any fever or chills, patient seen by her surgeon and on clear liquids. Will continue to follow the patient with you if you have any question please free to call us. 02/24 today patient states sees passing gas but no BM, seen by her surgeon discontinue IV ibuprofen and switched to Oral, encouraged to ambulate and started the patient on Senokot and MiraLax with low-fiber diet to help prevent constipation, patient denies any chest pain, patient still complains abdominal but denies any fever or chills remains clinically stable will con
[2021-02-25 10:31] VITALS: O2SAT 95
== END 2021-02-25 13:00 | disposition home or self-care (01) | DRG 220 ==
LOC: ANHSURGERY 13:32 → ANH3MED 13:32
PROVIDERS: Family Medicine; Physician Assistant; Admitting Provider Surgery; PCP Family Medicine; Visit Provider Surgery
PROC: 0DV44ZZ Restriction of Esophagogastric Junction, Percutaneous Endoscopic Approach (ICD-10-PCS; CPT 43281; principal; 2021-02-22 11:00)
DX: K21.9 Gastro-esophageal reflux disease without esophagitis (principal); K44.9 Diaphragmatic hernia without obstruction or gangrene; F17.210 Nicotine dependence, cigarettes, uncomplicated; G40.909 Epilepsy, unspecified, not intractable, without status epilepticus; F31.31 Bipolar disorder, current episode depressed, mild; M79.7 Fibromyalgia; R07.9 Chest pain, unspecified; E89.0 Postprocedural hypothyroidism; E78.5 Hyperlipidemia, unspecified; F43.10 Post-traumatic stress disorder, unspecified; F41.9 Anxiety disorder, unspecified; F20.9 Schizophrenia, unspecified; Z85.038 Personal history of other malignant neoplasm of large intestine; Z90.49 Acquired absence of other specified parts of digestive tract; Z90.710 Acquired absence of both cervix and uterus; Z92.3 Personal history of irradiation
CPT/HCPCS: 36415; 80048; 83735; 84484; 85014; 85018; 85027; 93005; A9270; C1713; J0690; J1100; J1170; J1650; J1741; J2250; J2270; J2405; J2704; J2710; J3010; J7120

== ENCOUNTER 2021-02-28 18:31 | Emergency (ER) | payer OTHER, SELFPAY ==
--- NOTE | ~2021-02-28 | CT_ITS ---
EXAMINATION: CT abdomen pelvis w con INDICATION: Abdominal pain, Deanna fundoplication on 02/22/2021 TECHNIQUE: Computed tomographic images of the abdomen and pelvis were obtained after the administrati on of 100 cc of Omnipaque 350 intravenous contrast. The dose-length product (DLP) was 440.20 mGy-cm. Automated exposure control and iterative reconstruction technique were employed. COMPARISON: 07/06/2020 FINDINGS: Minimal dependent atelectasis is present in the lung bases. The heart size is normal. There is a small right pleural effusion. The liver is diffusely low in attenuation when compared with the spleen, consistent with hepatic steatosis. Punctate calcifications in an otherwise normal spleen like ly represent healed granulomatous disease. The gallbladder is surgically absent. There is mild enlarg ement of the common bile duct and central intrahepatic ducts which is likely due to post cholecystect martinez state. The pancreas and adrenal glands are normal. No pathologically enlarged abdominal or pelvic lymph nodes are identified. There is no free intraperitoneal gas or evidence of bowel obstruction. T here are foci of gas in the anterior abdominal wall in the flanks, consistent with recent surgery. Ch anges of Deanna fundoplication are noted. There is a small volume of ascites in the pelvis. IMPRESSION: 1. Subcutaneous gas in the abdomen and flanks, consistent with recent surgery. Reviewed, dictated and finalized at location A.
[2021-02-28 18:32] VITALS: BP 131/76; PULSE 75; RESP 16; TEMP 37.4; O2SAT 97
--- NOTE | 2021-02-28 19:08 | ED.ABDPAIN ---
HPI - Abdominal Pain General Chief Complaint: Abdominal Pain Stated Complaint: abd pain post surgery Time Seen by Provider: 02/28/21 18:53 History of Present Illness HPI narrative: 45 yo female presents with post-operative abdominal pain. She had Deanna fundoplication done by Dr. Huerta on 02/22/2021. She reports that she has had pain ever since. The pain is becoming more severe. Additionally she says that she has been having diarrhea and a fever. Her highest measure temperature was 99.6. She has not called her surgeon's office about these issues. Related Data Home Medications Medication Instructions Recorded Confirmed Vimpat 200 mg PO Q12H 11/29/19 02/13/21 sertraline [Zoloft] 100 mg PO DAILY 06/20/20 02/22/21 aripiprazole [Abilify] 10 mg PO DAILY 02/13/21 02/13/21 Allergies Allergy/AdvReac Type Severity Reaction Status Date / Time adhesive Allergy Severe blisters Verified 02/28/21 18:46 Sulfa (Sulfonamide Allergy Severe Rash Verified 02/28/21 18:46 Antibiotics) hydrocodone Allergy Mild Dyspnea / Verified 02/28/21 18:46 SOB Review of Systems Review of Systems: All systems reviewed & are unremarkable except as noted in HPI and below Constitutional: Constitutional: Reports chills and Reports fever(s) Cardiovascular: Cardiovascular: Denies chest pain Respiratory: Respiratory: Denies dyspnea Gastrointestinal: Gastrointestinal: Reports abdominal pain and Reports diarrhea Genitourinary: Genitourinary: Denies hematuria and Denies dysuria PMFSH Past Medical History Medical History Acquired hypothyroidism Post-ablative hypothyroidism. Bipolar disorder Cerebrovascular accident With resultant memory loss. Colon cancer Status post polypectomy with oral chemotherapy and radiation. Depression Dyslipidemia Fibromyalgia Gastroesophageal reflux disease Graves disease Status post radioactive iodine ablation at the age of 15. Hiatal hernia Insomnia Neuropathy Posttraumatic stress disorder Restless leg syndrome Seizure disorder Stroke Tobacco dependence Uterine cancer Status post hysterectomy and bilateral salpingo-oophorectomy. Surgical History Surgical History History of appendectomy History of cholecystectomy History of colonoscopy with polypectomy History of elbow surgery Left. History of neck surgery Diskectomy and fusion. History of Deanna fundoplication (~02/22/21) History of total abdominal hysterectomy and bilateral salpingo-oophorectomy Family History Family History Sibling Carcinoma of colon Grandparent Acute myocardial infarction Other Family history of arthritis Family history of malignant neoplasm Social History Social History Social History: Surrogate decision maker: Jennifer Leal, mother. Code status: Full code. Smoking packs per day: 0.5 Smoking cigarettes per day: 10.0 Years smoked: 28 Smoking pack-years: 14.00 Smoking status: Current every day smoker Tobacco type: cigarettes Alcohol intake: former Substance use: current Substance use type: marijuana Last use: 02/21/21 Additional living arrangements comments: The patient lives alone in [place]. She has 2 grown sons. She has cats and dogs at home. 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 Additional occupation/education comments: Unemployed. Trying to get disability. Gender identity (if verbalized by the patient): Female Spiritual care concerns: No Exam Const: General: no acute distress and alert Orientation/consciousness: patient oriented x3 HENMT: Head: normal to inspection Resp: Effort & Inspection: normal respiratory effort Auscultation: clear to auscultation bilaterally Cardio: Rate: regular rate Rhythm: regular rhythm GI: GI Pa
[2021-02-28 19:17] LABS: Basophils Absolute Auto 0.1 K/mm3 (0.0-0.1); Basophils Percent Auto 0.7 % (0.2-1.2); Eosinophils Percent Auto 0.6 % (0-4.4); Hematocrit 36.5 % (37.0-47.0); Hemoglobin 12.6 g/dL (12.0-15.0); Immature Granulocyte Absolute 0.02 K/mm3 (0.00-0.031); Immature Granulocyte Percent A 0.3 % (0-0.5); Lymphocytes Absolute Auto 2.42 K/mm3 (0.9-3.2); Mean Corpuscular HGB Conc 34.5 g/dl (32-36); Mean Corpuscular Hemoglobin 31.8 pg (26-34); Mean Corpuscular Volume 92.2 fl (80-100); Mean Platelet Volume 9.8 fl (7.4-10.4); Monocytes Absolute Auto 0.5 K/mm3 (0.1-0.6); Monocytes Percent Auto 6.3 % (2.6-8.5); Neutrophils Absolute Auto 4.1 K/mm3 (1.3-6.7); Neutrophils Percent Auto 58.1 % (45.5-73.1); Platelet Count Result 278 k/mm3 (150-375); Red Blood Count 3.96 M/mm3 (4.2-5.4); Red Cell Distribution Width 12.2 % (11.5-14.5); White Blood Count 7.1 K/mm3 (4.5-10.0)
[2021-02-28 19:28] LABS: Alanine Aminotransferase 87 U/L (4-35); Albumin Level 3.9 g/dL (3.5-5.1); Alkaline Phosphatase 96 U/L (38-126); Anion Gap 4 mmol/L (8-16); Aspartate Amino Transferase 66 U/L (14-36); Bilirubin,Total 0.2 mg/dL (0.2-1.3); Blood Urea Nitrogen 13 mg/dL (7-17); Calcium 8.8 mg/dL (8.4-10.2); Carbon Dioxide 29 mmol/L (22-30); Chloride 108 mmol/L (98-107); Estimated CRCL calculation 66 ml/min; Estimated Glomerular Filt Rate > 60; Glucose 96 mg/dL (65-105); Lipase 97 U/L (23-300); Potassium 3.5 mmol/L (3.4-5.0); Sodium 141 mmol/L (137-145)
[2021-02-28] MEDS: fentaNYL CITRATE INJ (*CRX) 100 MCG/2 ML VIAL 50 MCG IV PUSH (19:37)
[2021-02-28 19:47] VITALS: BP 121/66; PULSE 75; RESP 16; TEMP 37.3; O2SAT 96
[2021-02-28 19:56] LABS: Add Urine Microscopic? YES; Appearance Urine Cloudy (Clear); Bacteria Urine Trace /hpf; Bilirubin Urine Negative (Negative); Blood Urine Negative (Negative); Color Urine Yellow (Yellow); Glucose Urine UA Negative (Negative); Ketones Urine Negative (Negative); Leukocyte Esterase Ur Negative LEU/UL (Negative); Mucus Urine Heavy /lpf; Nitrate Urine Negative (Negative); Protein Urine 2+ mg/dL (Negative); Specific Grav Ur 1.025 (1.001-1.035); Squamous Epithelial Cell Urine Few /hpf (Few)
[2021-02-28 20:57] VITALS: BP 123/60; PULSE 75; RESP 19; O2SAT 97
[2021-02-28] MEDS: oxyCODONE/ACETAMINOPHEN (*CRX) 5-325 MG TABLET 1 TABLET PO (21:07)
== END 2021-02-28 21:15 | disposition home or self-care (01) ==
PROVIDERS: Emergency Provider Emergency Medicine; PCP Family Medicine
DX: G89.18 Other acute postprocedural pain (principal); R10.9 Unspecified abdominal pain; E03.9 Hypothyroidism, unspecified; I69.911 Memory deficit following unspecified cerebrovascular disease; G40.909 Epilepsy, unspecified, not intractable, without status epilepticus; G25.81 Restless legs syndrome; M79.7 Fibromyalgia; K21.9 Gastro-esophageal reflux disease without esophagitis; G62.9 Polyneuropathy, unspecified; E78.5 Hyperlipidemia, unspecified; F31.9 Bipolar disorder, unspecified; F43.10 Post-traumatic stress disorder, unspecified; Z85.42 Personal history of malignant neoplasm of other parts of uterus; Z85.038 Personal history of other malignant neoplasm of large intestine; Z92.3 Personal history of irradiation; Z92.21 Personal history of antineoplastic chemotherapy; F17.210 Nicotine dependence, cigarettes, uncomplicated
CPT/HCPCS: 36415; 74177; 80053; 81001; 81025; 83690; 85025; 96374; 99284; A9270; J3010; Q9967

== ENCOUNTER 2021-04-14 05:11 | Emergency (ER) | payer OTHER, SELFPAY ==
--- NOTE | ~2021-04-14 | CT_ITS ---
EXAMINATION: CT abdomen pelvis w con INDICATION: Diffuse abdominal pain TECHNIQUE: Computed tomographic images of the abdomen and pelvis were obtained after the administrati on of 100 cc of Omnipaque 350 intravenous contrast. The dose-length product (DLP) was 433.82 mGy-cm. Automated exposure control and iterative reconstruction technique were employed. COMPARISON: 02/28/2021 FINDINGS: Minimal dependent atelectasis is present in the lung bases. The heart size is normal. Punct ate calcifications in an otherwise normal spleen likely represent healed granulomatous disease. The g allbladder is surgically absent. There is mild enlargement of the common bile duct and central intrah epatic ducts which is likely due to post cholecystectomy state. The liver, pancreas, and adrenal glan ds are normal. The kidneys are unremarkable. Changes of Deanna fundoplication are noted. No pathologi lisa enlarged abdominal or pelvic lymph nodes are identified. There is no free intraperitoneal gas o r evidence of bowel obstruction. There is mild lumbar spondylosis. The appendix and uterus are surgic ally absent. IMPRESSION: 1. No CT correlate for the patient's symptoms. Reviewed, dictated and finalized at location A.
[2021-04-14 05:18] VITALS: BP 142/70; PULSE 81; RESP 16; TEMP 36.7; O2SAT 100
--- NOTE | 2021-04-14 05:22 | ED.ABDPAIN ---
HPI - Abdominal Pain General Chief Complaint: Abdominal Pain Stated Complaint: abd pain Time Seen by Provider: 04/14/21 05:21 History of Present Illness HPI narrative: 45 yo female w/ h/o hussain fundoplication presents to the ED for abdominla pain. She reports that she has had severe diffuse abdominal pain for the past 2 days. This is associated with nausea, dry heaving, and diarrhea. She is also reporting fever of 101. I personally saw her last month with very similar complaints and she was found to have normal labs and a negative CT. Related Data Home Medications Medication Instructions Recorded Confirmed Vimpat 200 mg PO Q12H 11/29/19 03/08/21 sertraline [Zoloft] 100 mg PO DAILY 06/20/20 03/08/21 aripiprazole [Abilify] 10 mg PO DAILY 02/13/21 03/08/21 Allergies Allergy/AdvReac Type Severity Reaction Status Date / Time adhesive Allergy Severe blisters Verified 03/08/21 09:16 Sulfa (Sulfonamide Allergy Severe Rash Verified 03/08/21 09:16 Antibiotics) hydrocodone Allergy Mild Dyspnea / Verified 03/08/21 09:16 SOB Review of Systems Review of Systems: All systems reviewed & are unremarkable except as noted in HPI and below PMFSH Past Medical History Medical History Acquired hypothyroidism Post-ablative hypothyroidism. Bipolar disorder Cerebrovascular accident With resultant memory loss. Colon cancer Status post polypectomy with oral chemotherapy and radiation. Depression Dyslipidemia Fibromyalgia Gastroesophageal reflux disease Graves disease Status post radioactive iodine ablation at the age of 15. Hiatal hernia Insomnia Neuropathy Posttraumatic stress disorder Restless leg syndrome Seizure disorder Stroke Tobacco dependence Uterine cancer Status post hysterectomy and bilateral salpingo-oophorectomy. Surgical History Surgical History History of appendectomy History of cholecystectomy History of colonoscopy with polypectomy History of elbow surgery Left. History of neck surgery Diskectomy and fusion. History of Hussain fundoplication (~02/22/21) History of total abdominal hysterectomy and bilateral salpingo-oophorectomy Family History Family History Sibling Carcinoma of colon Grandparent Acute myocardial infarction Other Family history of arthritis Family history of malignant neoplasm Social History Social History Social History: Surrogate decision maker: Jennifer Leal, mother. Code status: Full code. Smoking packs per day: 0.5 Smoking cigarettes per day: 10.0 Years smoked: 28 Smoking pack-years: 14.00 Smoking status: Current every day smoker Tobacco type: cigarettes Alcohol intake: former Substance use: current Substance use type: marijuana Last use: 02/21/21 Additional living arrangements comments: The patient lives alone in [place]. She has 2 grown sons. She has cats and dogs at home. 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 Additional occupation/education comments: Unemployed. Trying to get disability. Gender identity (if verbalized by the patient): Female Spiritual care concerns: No Exam Const: General: no acute distress and alert Orientation/consciousness: patient oriented x3 HENMT: Head: normal to inspection Neck: Neck: normal visual inspection Resp: Effort & Inspection: normal respiratory effort Auscultation: clear to auscultation bilaterally Cardio: Rate: regular rate Rhythm: regular rhythm GI: Inspection: non-distended GI Palp: Yes Soft to palpation, Yes Tenderness to palpation present (GI) (generalized), No Guarding due to palpation present (GI) and No Rebound tenderness present Auscultation: normal bowel sounds Skin: General skin exam: normal color Neuro: General: patie
[2021-04-14 05:45] LABS: Basophils Absolute Auto 0.1 K/mm3 (0.0-0.1); Eosinophils Percent Auto 0.3 % (0-4.4); Hematocrit 41.3 % (37.0-47.0); Hemoglobin 14.2 g/dL (12.0-15.0); Immature Granulocyte Absolute 0.02 K/mm3 (0.00-0.031); Immature Granulocyte Percent A 0.3 % (0-0.5); Lymphocytes Absolute Auto 2.78 K/mm3 (0.9-3.2); Lymphocytes Percent Auto 38.3 % (18.3-44.2); Mean Corpuscular HGB Conc 34.4 g/dl (32-36); Mean Corpuscular Hemoglobin 32.4 pg (26-34); Mean Corpuscular Volume 94.3 fl (80-100); Mean Platelet Volume 10.8 fl (7.4-10.4); Monocytes Absolute Auto 0.5 K/mm3 (0.1-0.6); Monocytes Percent Auto 6.5 % (2.6-8.5); Neutrophils Absolute Auto 3.9 K/mm3 (1.3-6.7); Neutrophils Percent Auto 53.6 % (45.5-73.1); Platelet Count Result 293 k/mm3 (150-375); Red Blood Count 4.38 M/mm3 (4.2-5.4); Red Cell Distribution Width 12.3 % (11.5-14.5); White Blood Count 7.3 K/mm3 (4.5-10.0)
[2021-04-14] MEDS: ONDANSETRON INJ 4 MG/2 ML VIAL IV PUSH (05:49)
[2021-04-14] MEDS: fentaNYL CITRATE INJ (*CRX) 100 MCG/2 ML VIAL 50 MCG IV PUSH (05:49)
[2021-04-14 05:56] LABS: Add Urine Microscopic? YES; Appearance Urine Cloudy (Clear); Bilirubin Urine Negative (Negative); Blood Urine Negative (Negative); Color Urine Yellow (Yellow); Glucose Urine UA Negative (Negative); Ketones Urine Negative (Negative); Leukocyte Esterase Ur Trace LEU/UL (Negative); Mucus Urine Rare /lpf; Nitrate Urine Negative (Negative); Protein Urine Negative (Negative); Specific Grav Ur 1.025 (1.001-1.035); Squamous Epithelial Cell Urine Many /hpf (Few)
[2021-04-14 06:03] LABS: Alanine Aminotransferase 12 U/L (4-35); Albumin Level 4.7 g/dL (3.5-5.1); Alkaline Phosphatase 92 U/L (38-126); Anion Gap 3 mmol/L (8-16); Aspartate Amino Transferase 21 U/L (14-36); Bilirubin,Total 0.3 mg/dL (0.2-1.3); Blood Urea Nitrogen 8 mg/dL (7-17); Calcium 9.7 mg/dL (8.4-10.2); Carbon Dioxide 35 mmol/L (22-30); Chloride 99 mmol/L (98-107); Estimated CRCL calculation 71 ml/min; Estimated Glomerular Filt Rate > 60; Glucose 97 mg/dL (65-105); Lipase 97 U/L (23-300); Potassium 3.1 mmol/L (3.4-5.0); Sodium 137 mmol/L (137-145)
[2021-04-14 06:27] VITALS: BP 116/62; PULSE 65; RESP 16; O2SAT 100
[2021-04-14 07:47] VITALS: BP 107/66; PULSE 59; RESP 17; O2SAT 100
[2021-04-14] MEDS: AMOXICILLIN/CLAVULANATE K 875-125 MG TAB 1 TABLET PO (07:47)
[2021-04-14] MEDS: metroNIDAZOLE 250 MG TABLET 500 MG PO (07:47)
== END 2021-04-14 07:58 | disposition home or self-care (01) ==
PROVIDERS: Emergency Provider Emergency Medicine; PCP Nurse Practitioner
DX: K52.9 Noninfective gastroenteritis and colitis, unspecified (principal); I69.911 Memory deficit following unspecified cerebrovascular disease; E78.5 Hyperlipidemia, unspecified; G62.9 Polyneuropathy, unspecified; G25.81 Restless legs syndrome; M79.7 Fibromyalgia; G40.909 Epilepsy, unspecified, not intractable, without status epilepticus; F43.10 Post-traumatic stress disorder, unspecified; F31.9 Bipolar disorder, unspecified; K21.9 Gastro-esophageal reflux disease without esophagitis; Z85.42 Personal history of malignant neoplasm of other parts of uterus; Z85.038 Personal history of other malignant neoplasm of large intestine; Z92.3 Personal history of irradiation; Z92.21 Personal history of antineoplastic chemotherapy; Z98.1 Arthrodesis status; E89.0 Postprocedural hypothyroidism
CPT/HCPCS: 36415; 74177; 80053; 81001; 83690; 85025; 96374; 96375; 99284; A9270; J2405; J3010; Q9967

== ENCOUNTER 2021-07-31 18:44 | Emergency (ER) | payer OTHER, SELFPAY ==
--- NOTE | ~2021-07-31 | CT_ITS ---
EXAMINATION: CT abdomen pelvis w con DATE: 08/01/2021 02:54 INDICATION: Low abdominal pain. Blood in stool. TECHNIQUE: Computed tomography (CT) of the abdomen and pelvis was performed with 100 mL Omnipaque 350 intravenous contrast. Automated exposure control and iterative reconstruction technique were employe d. The dose-length product was 344.29 mGy-cm. COMPARISON: CT abdomen and pelvis 04/14/2021 FINDINGS: The visualized portions of the lung bases demonstrate mild atelectasis. No pleural effusion . The heart size is normal. No pericardial effusion. The liver is normal. There are changes of cholec ystectomy. Calcifications in the spleen are consistent with old granulomatous disease. There are pennington ges of fundoplication of the stomach. The pancreas, adrenal glands, and right kidney are normal. Ther e is a 6 mm cyst in left kidney. There are no dilated loops of bowel. There are changes of appendecto my. There are no pathologically enlarged lymph nodes. There is no free intraperitoneal fluid. There i s mild thoracolumbar spondylosis. IMPRESSION: 1. No etiology for the patient's symptoms. Reviewed, dictated and finalized at location A.
[2021-07-31 18:49] VITALS: BP 135/63; PULSE 74; RESP 14; TEMP 36.4; O2SAT 99
[2021-07-31 19:30] LABS: Basophils Absolute Auto 0.1 K/mm3 (0.0-0.1); Basophils Percent Auto 0.6 % (0.2-1.2); Eosinophils Percent Auto 0.1 % (0-4.4); Hematocrit 35.4 % (37.0-47.0); Hemoglobin 12.3 g/dL (12.0-15.0); Immature Granulocyte Absolute 0.02 K/mm3 (0.00-0.031); Immature Granulocyte Percent A 0.2 % (0-0.5); Lymphocytes Absolute Auto 2.97 K/mm3 (0.9-3.2); Lymphocytes Percent Auto 36.8 % (18.3-44.2); Mean Corpuscular HGB Conc 34.7 g/dl (32-36); Mean Corpuscular Hemoglobin 31.9 pg (26-34); Mean Corpuscular Volume 91.7 fl (80-100); Mean Platelet Volume 10.5 fl (7.4-10.4); Monocytes Absolute Auto 0.4 K/mm3 (0.1-0.6); Neutrophils Absolute Auto 4.6 K/mm3 (1.3-6.7); Neutrophils Percent Auto 57.3 % (45.5-73.1); Platelet Count Result 238 k/mm3 (150-375); Red Blood Count 3.86 M/mm3 (4.2-5.4); Red Cell Distribution Width 12.3 % (11.5-14.5); White Blood Count 8.1 K/mm3 (4.5-10.0)
[2021-07-31 19:41] LABS: Alanine Aminotransferase 19 U/L (4-35); Albumin Level 3.9 g/dL (3.5-5.1); Alkaline Phosphatase 89 U/L (38-126); Anion Gap 4 mmol/L (8-16); Aspartate Amino Transferase 21 U/L (14-36); Bilirubin,Total 0.3 mg/dL (0.2-1.3); Blood Urea Nitrogen 18 mg/dL (7-17); Carbon Dioxide 27 mmol/L (22-30); Chloride 106 mmol/L (98-107); Estimated CRCL calculation 65 ml/min; Estimated Glomerular Filt Rate > 60; Glucose 98 mg/dL (65-110); Lipase 116 U/L (23-300); Potassium 3.5 mmol/L (3.4-5.0); Sodium 137 mmol/L (137-145)
[2021-07-31 20:19] LABS: Add Urine Microscopic? YES; Appearance Urine Clear (Clear); Bilirubin Urine Negative (Negative); Blood Urine Negative (Negative); Color Urine Yellow (Yellow); Glucose Urine UA Negative (Negative); Ketones Urine Negative (Negative); Leukocyte Esterase Ur Trace LEU/UL (Negative); Mucus Urine Rare /lpf; Nitrate Urine Negative (Negative); Protein Urine 1+ mg/dL (Negative); RBC Urine 0-2 /hpf (0-2); Specific Grav Ur 1.028 (1.001-1.035); Squamous Epithelial Cell Urine Many /hpf (Few); WBC Urine 0-3 /hpf
[2021-07-31 20:58] VITALS: BP 136/64; PULSE 75; TEMP 36; O2SAT 98
[2021-07-31 23:16] VITALS: BP 133/64; PULSE 75; RESP 18; TEMP 36.3; O2SAT 95
[2021-07-31 23:57] VITALS: BP 127/73; PULSE 70; RESP 18; TEMP 36.8; O2SAT 98
--- NOTE | 2021-08-01 00:30 | ED.ABDPAIN ---
HPI - Abdominal Pain General Chief Complaint: Vaginal Bleeding Stated Complaint: vag bleed, vag pain, diff urination Time Seen by Provider: 08/01/21 00:03 History of Present Illness HPI narrative: Patient presents with lower abdominal pain bleeding from her private area. Patient thinks there is vaginal bleeding and rectal bleeding. Reports there is a small amount of blood in her underwear it is present when she wipes after urinating and when she wipes after having a bowel movement. Pain is achy, constant, no clear aggravating or alleviating factors. She reports she has a history of colitis and feels symptoms are similar to her prior episode Related Data Home Medications Medication Instructions Recorded Confirmed Vimpat 200 mg PO Q12H 11/29/19 04/16/21 sertraline [Zoloft] 100 mg PO DAILY 06/20/20 04/16/21 aripiprazole [Abilify] 10 mg PO DAILY 02/13/21 04/16/21 Allergies Allergy/AdvReac Type Severity Reaction Status Date / Time adhesive Allergy Severe blisters Verified 08/01/21 00:01 Sulfa (Sulfonamide Allergy Severe Rash Verified 08/01/21 00:01 Antibiotics) hydrocodone Allergy Mild Dyspnea / Verified 08/01/21 00:01 SOB Review of Systems Review of Systems: CONSTITUTIONAL: Denies fever, chills, or sweats. EYES: Denies visual changes, redness, or discharge. ENT: Denies rhinorrhea, congestion, sore throat, or otalgia. CARDIOVASCULAR: Denies chest pain, palpitations, or edema. RESPIRATORY: Denies cough or dyspnea. GASTROINTESTINAL: Denies , nausea, vomiting, or diarrhea. GENITOURINARY: Denies dysuria or hematuria. SKIN: Denies rash or itching. MUSCULOSKELETAL: Denies back pain, joint pain, or myalgia. NEUROLOGIC: Denies headache, numbness, dizziness, or weakness. PSYCHIATRIC: Denies anxiety or depression. All systems reviewed & are unremarkable except as noted in HPI and below PMFSH Past Medical History Medical History Acquired hypothyroidism Post-ablative hypothyroidism. Bipolar disorder Cerebrovascular accident With resultant memory loss. Colon cancer Status post polypectomy with oral chemotherapy and radiation. Depression Dyslipidemia Fibromyalgia Gastroesophageal reflux disease Graves disease Status post radioactive iodine ablation at the age of 15. Hiatal hernia Insomnia Neuropathy Posttraumatic stress disorder Restless leg syndrome Seizure disorder Stroke Tobacco dependence Uterine cancer Status post hysterectomy and bilateral salpingo-oophorectomy. Surgical History Surgical History History of appendectomy History of cholecystectomy History of colonoscopy with polypectomy History of elbow surgery Left. History of neck surgery Diskectomy and fusion. History of Deanna fundoplication (~02/22/21) History of total abdominal hysterectomy and bilateral salpingo-oophorectomy Family History Family History Sibling Carcinoma of colon Grandparent Acute myocardial infarction Other Family history of arthritis Family history of malignant neoplasm Social History Social History Social History: Surrogate decision maker: Jennifer Leal, mother. Code status: Full code. Smoking packs per day: 0.5 Smoking cigarettes per day: 10.0 Years smoked: 28 Smoking pack-years: 14.00 Tobacco type: cigarettes Alcohol intake: former Alcohol use details: rare Substance use: current Substance use type: marijuana Last use: 02/21/21 Additional living arrangements comments: The patient lives alone in [place]. She has 2 grown sons. She has cats and dogs at home. 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 Additional occupation/education comments: Unemployed. Trying to get disability. Gender identity (if verbalized by the patient): Female Spiritual care c
[2021-08-01 01:15] VITALS: BP 135/67; PULSE 62; RESP 16; O2SAT 100
[2021-08-01 03:26] VITALS: BP 137/81; PULSE 64; RESP 16; O2SAT 98
[2021-08-01 06:23] VITALS: BP 109/67; PULSE 65; RESP 18; O2SAT 97
== END 2021-08-01 06:25 | disposition home or self-care (01) ==
PROVIDERS: Emergency Medicine; Emergency Provider Emergency Medicine; PCP Nurse Practitioner
DX: K62.5 Hemorrhage of anus and rectum (principal); R10.9 Unspecified abdominal pain; E89.0 Postprocedural hypothyroidism; F31.9 Bipolar disorder, unspecified; I69.311 Memory deficit following cerebral infarction; E78.5 Hyperlipidemia, unspecified; M79.7 Fibromyalgia; G47.00 Insomnia, unspecified; G62.9 Polyneuropathy, unspecified; F43.10 Post-traumatic stress disorder, unspecified; G25.81 Restless legs syndrome; G40.909 Epilepsy, unspecified, not intractable, without status epilepticus; F17.210 Nicotine dependence, cigarettes, uncomplicated; Z87.19 Personal history of other diseases of the digestive system; Z85.038 Personal history of other malignant neoplasm of large intestine; Z85.42 Personal history of malignant neoplasm of other parts of uterus; Z92.21 Personal history of antineoplastic chemotherapy; Z92.3 Personal history of irradiation; Z90.710 Acquired absence of both cervix and uterus
CPT/HCPCS: 36415; 74177; 80053; 81001; 83690; 85025; 87070; 87077; 87491; 87591; 96365; 99284; J0131; Q9967

== ENCOUNTER 2021-10-10 01:37 | Day surgery (SDC) | payer OTHER, SELFPAY ==
[2021-09-25 15:03] VITALS: BMI 27.3
[2021-10-10 09:13] VITALS: BP 111/55; PULSE 73; RESP 16; TEMP 36; O2SAT 98
[2021-10-10] MEDS: LACTATED RINGERS 1,000 ML 150 ML IV CONT (09:15)
--- NOTE | 2021-10-10 09:46 | WPDANESEPPF ---
Anes - Initial Pre Proc Eval Procedure: Operation Date: 10/10/21 10:30 Proposed Procedures p Colonoscopy - Brian Huertas MD Date/Time: 10/10/21 09:46 Surgeon: Brian Huertas MD Pre Op Diagnosis: diarrhea Patient Data Age: 46 Gender: F Height: 1.57 m Weight: 66.8 kg Last Vital Signs Temp 36.0 C L 10/10/21 09:13 Pulse 73 10/10/21 09:13 Resp 16 10/10/21 09:13 BP 111/55 L 10/10/21 09:13 Pulse Ox 98 10/10/21 09:13 Allergies Allergy/AdvReac Type Severity Reaction Status Date / Time adhesive Allergy Severe blisters Verified 10/10/21 09:12 Sulfa (Sulfonamide Allergy Severe Rash Verified 10/10/21 09:12 Antibiotics) oxycodone Allergy Other Verified 10/10/21 09:12 Home Medications Medication Instructions Recorded Confirmed Type Vimpat 200 mg PO Q12H 11/29/19 10/10/21 History atorvastatin 40 mg tablet 40 mg PO DAILY #30 tablet 02/09/20 10/10/21 Rx trazodone 100 mg tablet 100 mg PO HS #30 tablet 04/05/20 10/10/21 Rx sertraline [Zoloft] 100 mg PO DAILY 06/20/20 10/10/21 History gabapentin 800 mg tablet 800 mg PO TID #90 tablet 10/31/20 10/10/21 Rx levothyroxine 137 mcg tablet 137 mcg PO DAILY #30 tablet 11/13/20 10/10/21 Rx aripiprazole [Abilify] 10 mg PO DAILY 02/13/21 10/10/21 History cholestyramine (with sugar) 4 g PO DAILY 09/25/21 10/10/21 History [Questran] Patient hx anesthesia problems: none Family hx anesthesia problems: none Results Review: All pre-operative results and documents have been reviewed as part of the pre-operative evaluation. [facility] Past Medical History Medical History Acquired hypothyroidism Post-ablative hypothyroidism. Bipolar disorder Cerebrovascular accident With resultant memory loss. Colon cancer Status post polypectomy with oral chemotherapy and radiation. Depression Dyslipidemia Fibromyalgia Gastroesophageal reflux disease Graves disease Status post radioactive iodine ablation at the age of 15. Hiatal hernia Insomnia Neuropathy Posttraumatic stress disorder Restless leg syndrome Seizure disorder Stroke Tobacco dependence Uterine cancer Status post hysterectomy and bilateral salpingo-oophorectomy. Surgical History Surgical History History of appendectomy History of cholecystectomy History of colonoscopy with polypectomy History of elbow surgery Left. History of neck surgery Diskectomy and fusion. History of Deanna fundoplication (~02/22/21) History of total abdominal hysterectomy and bilateral salpingo-oophorectomy Family History Family History Sibling Carcinoma of colon Grandparent Acute myocardial infarction Other Family history of arthritis Family history of malignant neoplasm Social History Social History Social History: Surrogate decision maker: Jennifer Leal, mother. Code status: Full code. Smoking packs per day: 1 Smoking cigarettes per day: 20.0 Years smoked: 30 Smoking pack-years: 30.00 Smoking status: Current every day smoker Tobacco type: cigarettes Alcohol intake: former Alcohol use details: rare Substance use: current Substance use type: marijuana Last use: 02/21/21 Living arrangements: with family Additional living arrangements comments: The patient lives alone in [place]. She has 2 grown sons. She has cats and dogs at home. 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 Additional occupation/education comments: Unemployed. Trying to get disability. Gender identity (if verbalized by the patient): Female Spiritual care concerns: No Anes - Eval Final PreProcedure Day of Procedure 10/10/21 09:46 Patient weight: overweight Heart: regular rate and rhythm Lungs: clear to auscultation Airway: Mallampati scale class
--- NOTE | 2021-10-10 10:40 | WPDHPUPDATE1 ---
History and Physical Update Update Date/Time: 10/10/21 10:40 History and Physical has been reviewed, including an updated exam of the patient. There are NO changes in the patient's condition. Risks, benefits, and alternatives have been discussed and questions answered. Patient agrees to proceed with procedure.
[2021-10-10 11:07] VITALS: BP 100/52; PULSE 59; RESP 17; O2SAT 100
[2021-10-10 11:17] VITALS: BP 102/61; PULSE 56; RESP 19; O2SAT 100
[2021-10-10 11:27] VITALS: BP 119/62; PULSE 56; RESP 15; O2SAT 99
== END 2021-10-10 11:31 | disposition home or self-care (01) ==
PROVIDERS: PCP Nurse Practitioner; Visit Provider Internal Medicine Gastroenterology
PROC: 0DJD8ZZ Inspection of Lower Intestinal Tract, Via Natural or Artificial Opening Endoscopic (ICD-10-PCS; CPT 45378; principal; 2021-10-10 10:30)
DX: R19.7 Diarrhea, unspecified (principal); K92.1 Melena; K63.5 Polyp of colon; K57.30 Diverticulosis of large intestine without perforation or abscess without bleeding; K64.8 Other hemorrhoids; Z85.038 Personal history of other malignant neoplasm of large intestine; E89.0 Postprocedural hypothyroidism; F31.9 Bipolar disorder, unspecified; Z98.1 Arthrodesis status; E78.5 Hyperlipidemia, unspecified; K21.9 Gastro-esophageal reflux disease without esophagitis; M79.7 Fibromyalgia; G62.9 Polyneuropathy, unspecified; G25.81 Restless legs syndrome; G40.909 Epilepsy, unspecified, not intractable, without status epilepticus; F43.10 Post-traumatic stress disorder, unspecified; F17.210 Nicotine dependence, cigarettes, uncomplicated; F12.90 Cannabis use, unspecified, uncomplicated; Z86.73 Personal history of transient ischemic attack (TIA), and cerebral infarction without residual deficits; Z92.21 Personal history of antineoplastic chemotherapy; Z92.3 Personal history of irradiation; Z85.42 Personal history of malignant neoplasm of other parts of uterus
CPT/HCPCS: 45385; 45380; 88305; J2704; J7120

== ENCOUNTER 2022-05-21 12:25 | Outpatient (CLI) | payer OTHER, SELFPAY ==
--- NOTE | ~2022-05-21 | MR_ITS ---
EXAMINATION: MR brain/brain stem wo/w con DATE: 05/21/2022 18:10 CDT INDICATION: Seizure TECHNIQUE: Magnetic resonance imaging (MRI) of the brain and brainstem was performed without intraven ous contrast. Sequences included sagittal and axial T1-weighted SE, axial diffusion-weighted FS SE, a xial T2*-weighted GRE, axial T2-weighted FLAIR Propeller, and axial T2-weighted Propeller. Apparent d iffusion coefficient (ADC) maps were created. COMPARISON: No prior studies for comparison. FINDINGS: The brain volume and ventricular system are within normal limits. The brain parenchymal si gnal intensity pattern and [place]/white matter is normal and there is no evidence of hemorrhage, space occupying masses or infarctions. The flow signal voids of the major arterial structures about the [place] of [place] and within the nya r dural venous sinuses appear grossly unremarkable and patent. The seventh and eighth cranial nerve complexes are normal. The mid sagittal image demonstrates a normal craniovertebral junction and corby us callosum. The paranasal sinuses are grossly unremarkable. There are scant mild periventricular an d subcortical white matter changes, likely within normal limits for age. No abnormal contrast enhancement was appreciated. IMPRESSION: 1: No acute intracranial abnormality. Reviewed, dictated and finalized at location A.
[2022-05-21 13:05] LABS: Estimated Glomerular Filt Rate 53
[2022-05-21 14:04] LABS: Basophils Absolute Auto 0.1 K/mm3 (0.0-0.1); Basophils Percent Auto 0.8 % (0.2-1.2); Eosinophils Percent Auto 0.1 % (0-4.4); Hematocrit 38.6 % (37.0-47.0); Hemoglobin 12.9 g/dL (12.0-15.0); Immature Granulocyte Absolute 0.02 K/mm3 (0.00-0.031); Immature Granulocyte Percent A 0.2 % (0-0.5); Lymphocytes Absolute Auto 3.43 K/mm3 (0.9-3.2); Lymphocytes Percent Auto 39.8 % (18.3-44.2); Mean Corpuscular HGB Conc 33.4 g/dl (32-36); Mean Corpuscular Volume 95.8 fl (80-100); Mean Platelet Volume 10.9 fl (7.4-10.4); Monocytes Absolute Auto 0.3 K/mm3 (0.1-0.6); Monocytes Percent Auto 3.9 % (2.6-8.5); Neutrophils Absolute Auto 4.7 K/mm3 (1.3-6.7); Neutrophils Percent Auto 55.2 % (45.5-73.1); Platelet Count Result 232 k/mm3 (150-375); Red Blood Count 4.03 M/mm3 (4.2-5.4); Red Cell Distribution Width 12.7 % (11.5-14.5); White Blood Count 8.6 K/mm3 (4.5-10.0)
[2022-05-21 14:15] LABS: Alanine Aminotransferase 27 U/L (6-35); Albumin Level 4.5 g/dL (3.5-5.1); Alkaline Phosphatase 70 U/L (38-126); Anion Gap 3 mmol/L (8-16); Aspartate Amino Transferase 34 U/L (14-36); Bilirubin,Total 0.3 mg/dL (0.2-1.3); Blood Urea Nitrogen 15 mg/dL (7-17); Calcium 9.2 mg/dL (8.4-10.2); Carbon Dioxide 35 mmol/L (22-30); Chloride 101 mmol/L (98-107); Estimated Glomerular Filt Rate 53; Glucose 87 mg/dL (65-110); Potassium 3.9 mmol/L (3.4-5.0); Sodium 139 mmol/L (137-145)
== END 2022-05-21 12:26 | disposition home or self-care (01) ==
PROVIDERS: PCP Nurse Practitioner; Visit Provider Psychiatry & Neurology Neurology
DX: G40.909 Epilepsy, unspecified, not intractable, without status epilepticus (principal)
CPT/HCPCS: 70553; 80053; 85025; A9577

== ENCOUNTER 2022-05-24 09:11 | Outpatient (CLI) | payer OTHER, SELFPAY ==
--- NOTE | 2022-05-24 13:59 | WPDNEUROLOGY ---
Neurology EEG Report General Information Date of Study: 05/24/22 TEST eeg DIAGNOSIS epilepsy CONDITION OF RECORDING awake and drowsy EEG NUMBER [id number] CLINICAL HISTORY patient reports she has had seizures since she was a child but the last few months she has been having some grand mals. EEG DESCRIPTION basic resting occipital frequency consists of large amount of well-organized medium voltage 8 to 9 hertz per 2nd alpha admixed with low-voltage 15 to 18 hertz per 2nd beta. Low-voltage beta activity seen diffusely during drowsiness. Bilateral symmetrical sleep activity seen during sleep. Hyperventilation not done. Photic stimulation produced normal drive. Non paroxysmal, nonfocal,,nonlateralizing, IMPRESSION normal record
== END 2022-05-24 09:12 | disposition home or self-care (01) ==
LOC: ANHNEURO 09:13
PROVIDERS: PCP Nurse Practitioner; Visit Provider Psychiatry & Neurology Neurology
DX: G40.909 Epilepsy, unspecified, not intractable, without status epilepticus (principal)
CPT/HCPCS: 95816

== ENCOUNTER 2022-06-03 15:48 | Emergency (ER) | payer OTHER, SELFPAY ==
[2022-06-03] VITALS (19 sets, daily range): BP systolic 117–143; BP diastolic 71–90; PULSE 64–82; RESP 10–41; TEMP 36.6; O2SAT 96–100
--- NOTE | ~2022-06-03 | XR_ITS ---
EXAMINATION: XR abdomen obstructive series DATE: 06/03/2022 16:46 INDICATION: Right upper quadrant pain with bloating. History of colon cancer. Small bowel obstruction . TECHNIQUE: Supine and upright views of the abdomen. FINDINGS: CT dated 08/01/2021 The visualized lung parenchyma is normal.. There are cholecystectomy clips. There is a nonspecific gilberto wel gas pattern. There is mildly dilated small bowel left mid abdomen measuring 3.6 cm. There is gas in bowel content throughout the colon. There are calcified granulomas of the spleen. There is no rosana e air. IMPRESSION: 1. Nonspecific bowel gas pattern with mildly dilated small bowel left mid abdomen which may represen t ileus or partial obstruction. Reviewed, dictated and finalized at location A. IMPRESSION: 1. Nonspecific bowel gas pattern with mildly dilated small bowel left mid abdo men which may represent ileus or partial obstruction.
--- NOTE | ~2022-06-03 | CT_ITS ---
EXAMINATION: CT abdomen pelvis w con DATE: 06/03/2022 17:36 INDICATION: Right upper quadrant abdominal pain and bloating TECHNIQUE: Computed tomography (CT) of the abdomen and pelvis was performed with 100 CC Omnipaque 300 intravenous contrast. Automated exposure control and iterative reconstruction technique were employe d. Exam dose: 284.24 mGy-cm total exam DLP. COMPARISON: 06/03/2022 obstructive series 08/01/2021 CT abdomen pelvis FINDINGS: There is minimal dependent bilateral lower lobe atelectasis. Normal heart size. Trace peric ardial fluid. No pleural effusion. Status post cholecystectomy. The liver, spleen, pancreas, bile ducts and pancreatic duct are unremark able. Normal morphology of the adrenal glands. Probable 3.5 mm right renal cyst. Probable 4.5 mm left renal cyst. No urinary tract calculus or hydro ureteronephrosis. Normal caliber of the abdominal aorta. No intraperitoneal or retroperitoneal or pelvic mass lesion or adenopathy or ascites. The urinary bladder is relatively evacuated. The uterus and adnexal areas are unremarkable. Small sliding hiatal hernia. There are multiple small bowel air-fluid levels but no small bowel dilatation or apparent obstruction . Findings favor enteritis or mild adynamic ileus. Status post appendectomy. No suspicious osteolytic or osteosclerotic lesions are noted. IMPRESSION: Scattered small bowel air-fluid levels suggesting enteritis or mild adynamic ileus Status post cholecystectomy Status post appendectomy Probable small renal cysts Small sliding hiatal hernia Reviewed, dictated and finalized at Location A. Reviewed, dictated and finalized at location A. IMPRESSION: Scattered small bowel air-fluid levels suggesting enteritis or mil d adynamic ileus Status post cholecystectomy Status post appendectomy Probable small renal cysts Small sliding hiatal hernia
[2022-06-03 16:48] LABS: Basophils Absolute Auto 0.1 K/mm3 (0.0-0.1); Basophils Percent Auto 1.2 % (0.2-1.2); Hematocrit 34.4 % (37.0-47.0); Hemoglobin 11.4 g/dL (12.0-15.0); Immature Granulocyte Absolute 0.01 K/mm3 (0.00-0.031); Immature Granulocyte Percent A 0.2 % (0-0.5); Lymphocytes Absolute Auto 2.65 K/mm3 (0.9-3.2); Lymphocytes Percent Auto 43.9 % (18.3-44.2); Mean Corpuscular HGB Conc 33.1 g/dl (32-36); Mean Corpuscular Hemoglobin 31.8 pg (26-34); Mean Corpuscular Volume 96.1 fl (80-100); Mean Platelet Volume 11.4 fl (7.4-10.4); Monocytes Absolute Auto 0.3 K/mm3 (0.1-0.6); Monocytes Percent Auto 5.1 % (2.6-8.5); Neutrophils Percent Auto 49.6 % (45.5-73.1); Platelet Count Result 210 k/mm3 (150-375); Red Blood Count 3.58 M/mm3 (4.2-5.4); Red Cell Distribution Width 12.6 % (11.5-14.5)
[2022-06-03 16:54] LABS: Alanine Aminotransferase 28 U/L (6-35); Albumin Level 4.2 g/dL (3.5-5.1); Alkaline Phosphatase 67 U/L (38-126); Anion Gap 4 mmol/L (8-16); Aspartate Amino Transferase 26 U/L (14-36); Bilirubin,Total 0.4 mg/dL (0.2-1.3); Blood Urea Nitrogen 8 mg/dL (7-17); Calcium 8.4 mg/dL (8.4-10.2); Carbon Dioxide 29 mmol/L (22-30); Chloride 107 mmol/L (98-107); Estimated CRCL calculation 56 ml/min; Estimated Glomerular Filt Rate 59; Glucose 88 mg/dL (65-110); Lipase 65 U/L (23-300); Potassium 3.2 mmol/L (3.4-5.0); Sodium 140 mmol/L (137-145)
[2022-06-03 16:57] LABS: Appearance Urine Clear (Clear); Bilirubin Urine 1+ (Negative); Color Urine Amber (Yellow); Glucose Urine UA Negative (Negative); Ketones Urine Trace mg/dL (Negative); Leukocyte Esterase Ur Negative LEU/UL (Negative); Nitrate Urine Negative (Negative); Protein Urine Trace mg/dL (Negative); pH Urine 6.5 (5.0-9.0)
[2022-06-03 17:07] LABS: Bacteria Urine Trace /hpf; Mucus Urine Rare /lpf; Squamous Epithelial Cell Urine Occasional /hpf (Few); WBC Urine 0-3 /hpf
[2022-06-03 17:09] LABS: Add Urine Microscopic? YES; Blood Urine Trace-Intact (Negative)
[2022-06-03 17:56] LABS: SARS-CoV-2 RNA PCR Negative
[2022-06-03] MEDS: POTASSIUM CHLORIDE 20 MEQ TABLET PO (18:10)
--- NOTE | 2022-06-03 18:23 | ED.ABDPAIN ---
HPI - Abdominal Pain General Chief Complaint: Abdominal Pain Stated Complaint: ABD PAIN - DX SBO YESTERDAY [facility]AY Time Seen by Provider: 06/03/22 15:50 Source: RN notes reviewed History of Present Illness HPI narrative: Patient presents emergency department from home for possible small bowel obstruction. Patient states that she has been having abdominal bloating for the past 3 days with some intermittent pain in the right upper quadrant. She states that she gone to [place] emergency department yesterday and had a CT scan done and was discharged she states that her PCP called today and told her she to go the emergency department for small bowel obstruction. Patient states she has not had any vomiting but states that she cannot vomit secondary to previous surgeries states that she did pass gas and had a bowel movement this morning she denies any fevers or chills chest pain shortness of breath or any other symptoms Related Data Home Medications Medication Instructions Recorded Confirmed sertraline 100 mg tablet (Zoloft) 100 mg PO DAILY 06/20/20 10/10/21 aripiprazole 10 mg tablet (Abilify) 10 mg PO DAILY 02/13/21 10/10/21 Allergies Allergy/AdvReac Type Severity Reaction Status Date / Time adhesive Allergy Severe blisters Verified 05/07/22 15:04 Sulfa (Sulfonamide Allergy Severe Rash Verified 05/07/22 15:04 Antibiotics) hydrocodone Allergy Unknown Verified 06/03/22 15:56 oxycodone Allergy Other Verified 05/07/22 15:04 Review of Systems Review of Systems: Gen.: Denies fevers or chills ENT: Denies congestion Respiratory: Denies shortness of breath or cough CV: Denies chest pain or palpitations GI: See HPI denies burning, urgency, frequency or hematuria Musculoskeletal: Denies back pain or muscle pain Neuro: Denies numbness, tingling, weakness or focal weakness Skin: Denies rash Except as documented, all other systems reviewed and negative PMFSH Past Medical History Medical History Acquired hypothyroidism Post-ablative hypothyroidism. Bipolar disorder Cerebrovascular accident With resultant memory loss. Colon cancer Status post polypectomy with oral chemotherapy and radiation. Depression Dyslipidemia Fibromyalgia Gastroesophageal reflux disease Graves disease Status post radioactive iodine ablation at the age of 15. Hiatal hernia Insomnia Neuropathy Posttraumatic stress disorder Restless leg syndrome Seizure disorder Stroke Tobacco dependence Uterine cancer Status post hysterectomy and bilateral salpingo-oophorectomy. Surgical History Surgical History History of appendectomy History of cholecystectomy History of colonoscopy with polypectomy History of elbow surgery Left. History of neck surgery Diskectomy and fusion. History of Deanna fundoplication (~02/22/21) History of total abdominal hysterectomy and bilateral salpingo-oophorectomy Family History Family History Sibling Carcinoma of colon Grandparent Acute myocardial infarction Other Family history of arthritis Family history of malignant neoplasm Social History Social History Social History: Surrogate decision maker: Jennifer Leal, mother. Code status: Full code. Smoking packs per day: 0.5 Smoking cigarettes per day: 10.0 Years smoked: 30 Smoking pack-years: 15.00 Smoking status: Current every day smoker Tobacco type: cigarettes Alcohol intake: former Alcohol use details: rare Substance use: current Substance use type: marijuana Last use: 02/21/21 Additional living arrangements comments: The patient lives alone in [place]. She has 2 grown sons. She has cats and dogs at home. 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 Additional occupation/education comments: Unemployed. Trying to ge
--- NOTE | 2022-06-03 19:10 | PC.NURSE ---
Report received from CRISTELA Chopra.
[2022-06-03] MEDS: PANTOPRAZOLE SODIUM IV 40 MG VIAL IV PUSH (19:26)
== END 2022-06-03 19:41 | disposition home or self-care (01) ==
PROVIDERS: Emergency Provider Emergency Medicine; PCP Nurse Practitioner
DX: K56.0 Paralytic ileus (principal); Z20.822 Contact with and (suspected) exposure to COVID-19; I69.911 Memory deficit following unspecified cerebrovascular disease; E78.5 Hyperlipidemia, unspecified; G40.909 Epilepsy, unspecified, not intractable, without status epilepticus; G62.9 Polyneuropathy, unspecified; G25.81 Restless legs syndrome; M79.7 Fibromyalgia; Z85.42 Personal history of malignant neoplasm of other parts of uterus; F31.9 Bipolar disorder, unspecified; F43.10 Post-traumatic stress disorder, unspecified; Z90.710 Acquired absence of both cervix and uterus; Z90.722 Acquired absence of ovaries, bilateral; F17.210 Nicotine dependence, cigarettes, uncomplicated
CPT/HCPCS: 36415; 74019; 74177; 80053; 81001; 81025; 83605; 83690; 85025; 96374; 99284; A9270; C9113; C9803; Q9967; U0003; U0005

== ENCOUNTER 2022-07-04 07:45 | Outpatient (CLI) | payer OTHER, SELFPAY ==
--- NOTE | ~2022-07-04 | NM_ITS ---
EXAM: NM gastric emptying study DATE: 07/04/2022 12:36 INDICATION: Nausea. Bloating. TECHNIQUE: A gastric emptying study was performed using the methodology of Pamela SIMPSON, et al. J Nucl Med 2007; 48:568-572. The patient was given a meal consisting of 2 scrambled eggs labeled with 0.981 mCi Tc-99m sulfur colloid, 2 slices of toast, two packages of jam, and approximately 120 mL of water . Simultaneous anterior and posterior 1-min images of the abdomen were obtained with the patient supi ne at multiple time points over a total period of 4 hours. The geometric mean of anterior and posteri or views was determined, and the percentage retention was calculated for each time point. COMPARISON: CT abdomen and pelvis 06/03/2022 FINDINGS: Gastric retention of the radiotracer-labeled meal was 50%, 22%, and 4% at the 1-hour, 2-ho ur, and 4-hour time points, respectively. With this technique, apparent rapid gastric emptying is sug gested by <30% gastric retention at 1 hour. Delayed gastric emptying is defined by gastric retention of >90% at 1 hour, >60% retention at 2 hours, or >10% retention at 4 hours. IMPRESSION: 1. Normal gastric emptying. Reviewed, dictated and finalized at location A. IMPRESSION: 1. Normal gastric emptying.
== END 2022-07-04 07:46 | disposition home or self-care (01) ==
LOC: ANHIMG 07:48
PROVIDERS: PCP Nurse Practitioner; Visit Provider Internal Medicine Gastroenterology
DX: R10.9 Unspecified abdominal pain (principal); R11.2 Nausea with vomiting, unspecified; R14.0 Abdominal distension (gaseous)
CPT/HCPCS: 78264; A9541

== ENCOUNTER 2022-07-19 08:14 | Outpatient (CLI) | payer OTHER, SELFPAY ==
--- NOTE | ~2022-07-19 | XR_ITS ---
EXAMINATION: XR small bowel follow through DATE: 07/19/2022 11:36 INDICATION: Nausea and vomiting. TECHNIQUE: Oral contrast was administered, and a time course of radiographs of the abdomen was obtain ed. Fluoroscopy of the small bowel was not performed. Fluoroscopy exposure time was 0.0 minutes. The total number of images was 9. COMPARISON: CT abdomen and pelvis 06/03/2022 FINDINGS: There are no dilated loops of bowel. No abnormal mass or stricture. The terminal ileum is normal. Tra nsit time from the stomach to proximal colon was approximately 2 hours. IMPRESSION: 1. Normal small bowel series. Reviewed, dictated and finalized at location A.
== END 2022-07-19 08:15 | disposition home or self-care (01) ==
PROVIDERS: PCP Nurse Practitioner; Visit Provider Internal Medicine Gastroenterology
DX: R11.2 Nausea with vomiting, unspecified (principal); R10.9 Unspecified abdominal pain; R14.0 Abdominal distension (gaseous)
CPT/HCPCS: 74250

== ENCOUNTER 2023-06-28 21:23 | Emergency (ER) | payer OTHER, SELFPAY ==
[2023-06-28] VITALS (11 sets, daily range): BP systolic 101–121; BP diastolic 57–63; PULSE 63–74; RESP 13–18; TEMP 36.3; O2SAT 97–100
--- NOTE | 2023-06-28 21:30 | ECG_ITS ---
Measurements Intervals [place] Rate: 65 P: 52 SD: 205 QRS: 57 QRSD: 107 T: 62 QT: 420 QTc: 438 Interpretive Statements SINUS RHYTHM NONSPECIFIC T-WAVE ABNORMALITY COMPARED TO ECG 02/22/2021 18:28:46 T-WAVE ABNORMALITY NOW PRESENT Electronically Signed On 06-29-2023 8:32:17 CDT by Fabiola Boudreaux M.D.
[2023-06-28 21:33] LABS: Glucose Point of Care 135 mg/dl (65-105)
[2023-06-28 21:46] LABS: Basophils Absolute Auto 0.1 K/mm3 (0.0-0.1); Basophils Percent Auto 0.8 % (0.2-1.2); Eosinophils Percent Auto 0.1 % (0-4.4); Hematocrit 32.7 % (37.0-47.0); Hemoglobin 11.2 g/dL (12.0-15.0); Immature Granulocyte Absolute 0.02 K/mm3 (0.00-0.031); Immature Granulocyte Percent A 0.3 % (0-0.5); Lymphocytes Absolute Auto 2.19 K/mm3 (0.9-3.2); Lymphocytes Percent Auto 30.2 % (18.3-44.2); Mean Corpuscular HGB Conc 34.3 g/dl (32-36); Mean Corpuscular Hemoglobin 32.4 pg (26-34); Mean Corpuscular Volume 94.5 fl (80-100); Mean Platelet Volume 10.6 fl (7.4-10.4); Monocytes Absolute Auto 0.4 K/mm3 (0.1-0.6); Monocytes Percent Auto 5.4 % (2.6-8.5); Neutrophils Absolute Auto 4.6 K/mm3 (1.3-6.7); Neutrophils Percent Auto 63.2 % (45.5-73.1); Platelet Count Result 192 k/mm3 (150-375); Red Blood Count 3.46 M/mm3 (4.2-5.4); Red Cell Distribution Width 12.4 % (11.5-14.5); White Blood Count 7.2 K/mm3 (4.5-10.0)
[2023-06-28 21:56] LABS: Alanine Aminotransferase 26 U/L (6-35); Albumin Level 3.7 g/dL (3.5-5.1); Alkaline Phosphatase 60 U/L (38-126); Anion Gap 6 mmol/L (8-16); Aspartate Amino Transferase 25 U/L (14-36); Bilirubin,Total 0.3 mg/dL (0.2-1.3); Blood Urea Nitrogen 12 mg/dL (7-17); Calcium 8.3 mg/dL (8.4-10.2); Carbon Dioxide 24 mmol/L (22-30); Chloride 106 mmol/L (98-107); Estimated CRCL calculation 86 ml/min; Estimated Glomerular Filt Rate > 60; Glucose 104 mg/dL (65-110); Sodium 136 mmol/L (137-145)
--- NOTE | 2023-06-28 22:00 | ED.SEIZURE ---
HPI - Seizure General Chief Complaint: Seizure Stated Complaint: low bg Time Seen by Provider: 06/28/23 21:37 History of Present Illness HPI Narrative: Patient presents after having a grand mal seizure witnessed by family, she does state that she has not been sleeping much over the last 2 days because of her insomnia, and she had had a beer and a half earlier today before she had a seizure. She states she has them about once or twice a month, and has not missed any of her seizure medications. Has not been able to see her neurologist in a while since he retired but has follow-up in January. Does not have pain anywhere except for the right side of her face, she is not on blood thinners, she feels tired. Seizure History: Yes (As recent as a couple weeks ago) Related Data Home Medications Medication Instructions Recorded Confirmed sertraline 100 mg tablet (Zoloft) 100 mg PO DAILY 06/20/20 10/10/21 aripiprazole 10 mg tablet (Abilify) 10 mg PO DAILY 02/13/21 10/10/21 Allergies Allergy/AdvReac Type Severity Reaction Status Date / Time adhesive Allergy Severe blisters Verified 06/28/23 21:29 Sulfa (Sulfonamide Allergy Severe Rash Verified 06/28/23 21:29 Antibiotics) hydrocodone Allergy Unknown Verified 06/28/23 21:29 Influenza Virus Vaccines Allergy Unknown Verified 06/28/23 21:29 oxycodone Allergy Other Verified 06/28/23 21:29 Review of Systems Review of Systems: CONST: Fatigue HEENT: right-sided face pain C/V: No chest pain RESP: No cough GI: No abdominal pain : No dysuria. M/S: No joint pain. SKIN: No rash. NEURO: No headache, numbness or weakness; denies seizure PSYCH: Insomnia [facility] Past Medical History Medical History (Updated 06/28/23 @ 23:16 by Teetee Meredith MD) Acquired hypothyroidism Post-ablative hypothyroidism. Bipolar disorder Bloating Cerebrovascular accident With resultant memory loss. Colon cancer Status post polypectomy with oral chemotherapy and radiation. Depression Dyslipidemia Fibromyalgia Gastroesophageal reflux disease Graves disease Status post radioactive iodine ablation at the age of 15. Hiatal hernia Insomnia Neuropathy Posttraumatic stress disorder Restless leg syndrome Seizure disorder Stroke Tobacco dependence Uterine cancer Status post hysterectomy and bilateral salpingo-oophorectomy. Surgical History Surgical History History of appendectomy History of cholecystectomy History of colonoscopy with polypectomy History of elbow surgery Left. History of neck surgery Diskectomy and fusion. History of Deanna fundoplication (~02/22/21) History of total abdominal hysterectomy and bilateral salpingo-oophorectomy Family History Family History Sibling Carcinoma of colon Grandparent Acute myocardial infarction Other Family history of arthritis Family history of malignant neoplasm Social History Social History Social History: Surrogate decision maker: Jennifer eLal, mother. Code status: Full code. Smoking packs per day: 0.5 Smoking cigarettes per day: 10.0 Years smoked: 30 Smoking pack-years: 15.00 Smoking status: Current every day smoker Tobacco type: cigarettes Alcohol intake: former Alcohol use details: rare Substance use: current Substance use type: marijuana Last use: 02/21/21 Living arrangements: with family Additional living arrangements comments: The patient lives alone in [place]. She has 2 grown sons. She has cats and dogs at home. 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 Occupation/Education: unemployed Additional occupation/education comments: Unemployed. Trying to get disability. Gender identity (if verbalized by the patient): Female Spiritual care concerns: No Exam Narrative: EXAMINATION OF ORGAN SYSTEMS
[2023-06-28] MEDS: POTASSIUM CHLORIDE 20 MEQ PACKET (FOR LIQUID) 40 MEQ PO (23:25)
[2023-06-28 23:36] LABS: Glucose Point of Care 151 mg/dl (65-105)
== END 2023-06-28 23:31 | disposition home or self-care (01) ==
PROVIDERS: Emergency Provider Emergency Medicine; PCP Nurse Practitioner
DX: G40.909 Epilepsy, unspecified, not intractable, without status epilepticus (principal); I69.911 Memory deficit following unspecified cerebrovascular disease; E03.9 Hypothyroidism, unspecified; E78.5 Hyperlipidemia, unspecified; M79.7 Fibromyalgia; K21.9 Gastro-esophageal reflux disease without esophagitis; G47.00 Insomnia, unspecified; G25.81 Restless legs syndrome; F31.9 Bipolar disorder, unspecified; F43.10 Post-traumatic stress disorder, unspecified; Z85.42 Personal history of malignant neoplasm of other parts of uterus; Z90.710 Acquired absence of both cervix and uterus; Z90.79 Acquired absence of other genital organ(s); Z90.722 Acquired absence of ovaries, bilateral; Z90.49 Acquired absence of other specified parts of digestive tract; R94.31 Abnormal electrocardiogram [ECG] [EKG]
CPT/HCPCS: 36415; 80053; 82948; 85025; 93005; 99284; A9270

== ENCOUNTER 2023-07-30 02:46 | Day surgery (SDC) | payer OTHER, SELFPAY ==
[2023-07-21 13:09] VITALS: BMI 25.9
[2023-07-30 10:37] VITALS: BP 117/40; PULSE 73; RESP 18; TEMP 36.1; O2SAT 99
[2023-07-30] MEDS: LACTATED RINGERS 1,000 ML 150 ML IV CONT (10:52)
--- NOTE | 2023-07-30 11:04 | WPDANESEPPF ---
Anes - Initial Pre Proc Eval Procedure: Operation Date: 07/30/23 11:00 Proposed Procedures p Colonoscopy - Brian Huertas MD Date/Time: 07/30/23 11:04 Surgeon: Brian Huertas MD Pre Op Diagnosis: hx colon polyps, hx colon ca Patient Data Age: 47 Gender: F Height: 1.57 m Weight: 62.9 kg Last Vital Signs Temp 97 F L 07/30/23 10:37 Pulse 73 07/30/23 10:37 Resp 18 07/30/23 10:37 BP 117/40 L 07/30/23 10:37 Pulse Ox 99 07/30/23 10:37 O2 Del Method Room Air 07/30/23 10:37 Allergies Allergy/AdvReac Type Severity Reaction Status Date / Time adhesive Allergy Severe blisters Verified 07/30/23 10:36 Influenza Virus Vaccines Allergy Severe Anaphylaxis Verified 07/30/23 10:36 Sulfa (Sulfonamide Allergy Severe Anaphylaxis Verified 07/30/23 10:36 Antibiotics) hydrocodone Allergy Intermediate Rash Verified 07/30/23 10:36 oxycodone Allergy Intermediate Rash Verified 07/30/23 10:36 pine tree Allergy Intermediate Rash Uncoded 07/30/23 10:36 Home Medications Medication Instructions Recorded Confirmed Type atorvastatin 40 mg tablet 40 mg PO DAILY #30 tabs 02/09/20 07/21/23 Rx trazodone 100 mg tablet 100 mg PO HS #30 tabs 04/05/20 07/21/23 Rx sertraline 100 mg tablet (Zoloft) 100 mg PO DAILY 06/20/20 07/21/23 History gabapentin 800 mg tablet 800 mg PO TID #90 tabs 10/31/20 07/21/23 Rx lacosamide 200 mg tablet (Vimpat) 200 mg PO Q12H #60 tabs 01/22/23 07/21/23 Rx levetiracetam 500 mg tablet 500 mg PO Q12H #60 tabs 07/07/23 07/21/23 Rx (Keppra) aripiprazole 20 mg tablet 20 mg PO DAILY 07/21/23 07/21/23 History ibuprofen 800 mg tablet 800 mg PO Q8H PRN Pain 07/21/23 07/21/23 History levothyroxine 100 mcg tablet 100 mcg PO DAILY 07/21/23 07/21/23 History pramipexole 0.25 mg tablet 0.25 mg PO DAILY 07/21/23 07/21/23 History Patient hx anesthesia problems: none Family hx anesthesia problems: none Results Review: All pre-operative results and documents have been reviewed as part of the pre-operative evaluation. [facility] Past Medical History Medical History (Updated 06/29/23 @ 00:02 by Christiana Juarez) Acquired hypothyroidism Post-ablative hypothyroidism. Bipolar disorder Bloating Cerebrovascular accident With resultant memory loss. Colon cancer Status post polypectomy with oral chemotherapy and radiation. Depression Dyslipidemia Fibromyalgia Gastroesophageal reflux disease Graves disease Status post radioactive iodine ablation at the age of 15. Hiatal hernia Insomnia Neuropathy Posttraumatic stress disorder Restless leg syndrome Seizure disorder Stroke Tobacco dependence Uterine cancer Status post hysterectomy and bilateral salpingo-oophorectomy. Surgical History Surgical History History of appendectomy History of cholecystectomy History of colonoscopy with polypectomy History of elbow surgery Left. History of neck surgery Diskectomy and fusion. History of Deanna fundoplication (~02/22/21) History of total abdominal hysterectomy and bilateral salpingo-oophorectomy Family History Family History Sibling Carcinoma of colon Grandparent Acute myocardial infarction Other Family history of arthritis Family history of malignant neoplasm Social History Social History Social History: Surrogate decision maker: Jennifer Leal, mother. Code status: Full code. Smoking packs per day: 1 Smoking cigarettes per day: 20.0 Years smoked: 30 Smoking pack-years: 30.00 Smoking status: Current every day smoker Tobacco type: cigarettes Alcohol intake: never Alcohol use details: rare Substance use: current Substance use type: marijuana Other substance usage details: 2 X WEEK Last use: 02/21/21 Living arrangements: with family Additional living arrangements
--- NOTE | 2023-07-30 11:39 | PM.HPGS ---
History of Present Illness History of Present Illness Consent: Risks, benefits, and alternatives have been discussed and questions answered. Patient agrees to proceed with procedure. Chief complaint: hx colon polyps, hx colon ca Narrative: Renata Young is a 47 year old female colon polyp in 2020 and colon cancer about 7 years ago elsewhere - no records Review of Systems Constitutional: Constitutional: Denies headache(s) and Denies weakness Eyes: Eyes: Denies blurry vision ENT: Reports Normal hearing present, Denies headache(s) and Denies neck pain Cardiovascular: Cardiovascular: Denies chest pain and Denies dyspnea Respiratory: Respiratory: Denies dyspnea Gastrointestinal: Gastrointestinal: Reports no additional gastrointestinal complaints Genitourinary: Genitourinary: Denies dysuria Musculoskeletal: Musculoskeletal: Denies neck pain Integumentary/Breasts: Skin/Breast: Denies dry skin Neurologic: Reports Normal hearing present, Denies headache(s) and Denies weakness Psychiatric: Psychiatric: Denies anxiety Endocrine: Endocrine: Denies change in body appearance Hematologic/Lymphatic: Hematologic/Lymphatic: Denies easy bleeding Allergic/Immunologic: Allergic/Immunologic: Denies urticaria PMF Past Medical History Medical History (Updated 07/30/23 @ 11:40 by Brian Huertas MD) Acquired hypothyroidism Post-ablative hypothyroidism. Adenomatous colon polyp Bipolar disorder Bloating Cerebrovascular accident With resultant memory loss. Colon cancer Status post polypectomy with oral chemotherapy and radiation. Depression Dyslipidemia Fibromyalgia Gastroesophageal reflux disease Graves disease Status post radioactive iodine ablation at the age of 15. Hiatal hernia Insomnia Neuropathy Posttraumatic stress disorder Restless leg syndrome Seizure disorder Stroke Tobacco dependence Uterine cancer Status post hysterectomy and bilateral salpingo-oophorectomy. Surgical History Surgical History History of appendectomy History of cholecystectomy History of colonoscopy with polypectomy History of elbow surgery Left. History of neck surgery Diskectomy and fusion. History of Deanna fundoplication (~02/22/21) History of total abdominal hysterectomy and bilateral salpingo-oophorectomy Family History Family History Sibling Carcinoma of colon Grandparent Acute myocardial infarction Other Family history of arthritis Family history of malignant neoplasm Social History Social History (Reviewed 06/20/22 @ 10:18 by JOLIE Moe Social History: Surrogate decision maker: Jennifer Leal, mother. Code status: Full code. Smoking packs per day: 1 Smoking cigarettes per day: 20.0 Years smoked: 30 Smoking pack-years: 30.00 Smoking status: Current every day smoker Tobacco type: cigarettes Alcohol intake: never Alcohol use details: rare Substance use: current Substance use type: marijuana Other substance usage details: 2 X WEEK Last use: 02/21/21 Living arrangements: with family Additional living arrangements comments: The patient lives alone in [place]. She has 2 grown sons. She has cats and dogs at home. 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 Occupation/Education: unemployed Additional occupation/education comments: Unemployed. Trying to get disability. Gender identity (if verbalized by the patient): Female Spiritual care concerns: No Meds Home Medications and Allergies Home Medications Medication Instructions Recorded Confirmed Type atorvastatin 40 mg tablet 40 mg PO DAILY #30 tabs 02/09/20 07/21/23 Rx trazodone 100 mg tablet 100 mg PO HS #30 tabs 04/05/20 07/21/23 Rx sertraline 100 mg tablet (Zoloft) 100 mg PO DAILY 06/20/20 07/21/23 History gabapentin 800 mg tablet 800 mg PO TID #90 tabs 12/0
[2023-07-30 11:58] VITALS: BP 88/48; PULSE 49; RESP 15; O2SAT 99
[2023-07-30 12:08] VITALS: BP 91/48; PULSE 47; RESP 20; O2SAT 99
[2023-07-30 12:18] VITALS: BP 94/53; PULSE 51; RESP 20; O2SAT 99
[2023-07-30 12:21] VITALS: BP 110/60; PULSE 52; RESP 17; O2SAT 99
== END 2023-07-30 12:35 | disposition home or self-care (01) ==
PROVIDERS: PCP Nurse Practitioner; Visit Provider Internal Medicine Gastroenterology
PROC: 0DJD8ZZ Inspection of Lower Intestinal Tract, Via Natural or Artificial Opening Endoscopic (ICD-10-PCS; CPT 45378; principal; 2023-07-30 11:00)
DX: Z12.11 Encounter for screening for malignant neoplasm of colon (principal); K63.5 Polyp of colon; K64.8 Other hemorrhoids; Z85.038 Personal history of other malignant neoplasm of large intestine; E89.0 Postprocedural hypothyroidism; G40.909 Epilepsy, unspecified, not intractable, without status epilepticus; F31.9 Bipolar disorder, unspecified; E78.5 Hyperlipidemia, unspecified; M79.7 Fibromyalgia; G25.81 Restless legs syndrome; G62.9 Polyneuropathy, unspecified; F43.10 Post-traumatic stress disorder, unspecified; Z86.73 Personal history of transient ischemic attack (TIA), and cerebral infarction without residual deficits; Z85.42 Personal history of malignant neoplasm of other parts of uterus; Z92.21 Personal history of antineoplastic chemotherapy; Z92.3 Personal history of irradiation; F17.210 Nicotine dependence, cigarettes, uncomplicated; F12.90 Cannabis use, unspecified, uncomplicated
CPT/HCPCS: 45385; 88305; J2704; J7120

== ENCOUNTER 2023-08-01 17:05 | Emergency (ER) | payer OTHER, SELFPAY ==
[2023-08-01] VITALS (9 sets, daily range): BP systolic 116–124; BP diastolic 64–92; PULSE 57–74; RESP 12–19; TEMP 37.2; O2SAT 97–100
--- NOTE | ~2023-08-01 | XR_ITS ---
EXAMINATION: XR chest 1V portable DATE: 08/01/2023 17:42 INDICATION: Chest pain TECHNIQUE: frontal and lateral views of the chest were obtained. COMPARISON: Chest radiograph dated 02/19/2021 FINDINGS: Minimal streaky lingular atelectasis at the left costophrenic angle. Lungs remain otherwise clear wit h no other airspace opacities, pulmonary edema, pleural effusion or pneumothorax. The cardiomediastin al silhouette is normal. Cholecystectomy clips in right upper quadrant. Instrumented anterior spinal fusion with interbody bone graft cage and anterior plate and screw fixation at the lower cervical spi ne. IMPRESSION: 1. Minimal streaky atelectasis at the lingula. No other acute cardiopulmonary disease. Reviewed, dictated and finalized at location A. IMPRESSION: 1. Minimal streaky atelectasis at the lingula. No other acute cardiopulmonary d isease.
--- NOTE | 2023-08-01 17:11 | ECG_ITS ---
Measurements Intervals [place] Rate: 74 P: 43 IA: 198 QRS: 69 QRSD: 93 T: 22 QT: 408 QTc: 454 Interpretive Statements SINUS RHYTHM NONSPECIFIC T-WAVE ABNORMALITY- ANT/INF LEADS BASELINE ARTIFACT- II, III, AVF, V3-V5 BORDERLINE ECG COMPARED TO ECG 06/28/2023 21:58:02 NO SIGNIFICANT CHANGES Electronically Signed On 08-02-2023 16:28:10 CDT by Clay Trinh D.O.
--- NOTE | 2023-08-01 17:17 | PC.NURSE ---
1650 O/H Stemi [address] 1708 Stemi Cancelled
[2023-08-01 17:29] LABS: Basophils Absolute Auto 0.1 K/mm3 (0.0-0.1); Basophils Percent Auto 0.8 % (0.2-1.2); Eosinophils Percent Auto 0.2 % (0-4.4); Hematocrit 36.1 % (37.0-47.0); Hemoglobin 12.8 g/dL (12.0-15.0); Immature Granulocyte Absolute 0.01 K/mm3 (0.00-0.031); Immature Granulocyte Percent A 0.2 % (0-0.5); Lymphocytes Absolute Auto 2.12 K/mm3 (0.9-3.2); Lymphocytes Percent Auto 33.7 % (18.3-44.2); Mean Corpuscular HGB Conc 35.5 g/dl (32-36); Mean Corpuscular Hemoglobin 32.5 pg (26-34); Mean Corpuscular Volume 91.6 fl (80-100); Mean Platelet Volume 11.2 fl (7.4-10.4); Monocytes Absolute Auto 0.3 K/mm3 (0.1-0.6); Monocytes Percent Auto 4.3 % (2.6-8.5); Neutrophils Absolute Auto 3.8 K/mm3 (1.3-6.7); Neutrophils Percent Auto 60.8 % (45.5-73.1); Platelet Count Result 209 k/mm3 (150-375); Red Blood Count 3.94 M/mm3 (4.2-5.4); Red Cell Distribution Width 11.7 % (11.5-14.5); White Blood Count 6.3 K/mm3 (4.5-10.0)
[2023-08-01 17:40] LABS: Partial Thromboplastin Time 26.8 SECONDS (22.3-36.8); Prothrombin Time 13.7 Seconds (11.1-14.7)
[2023-08-01 17:44] LABS: Alanine Aminotransferase 19 U/L (6-35); Albumin Level 3.8 g/dL (3.5-5.1); Alkaline Phosphatase 79 U/L (38-126); Anion Gap 6 mmol/L (8-16); Aspartate Amino Transferase 37 U/L (14-36); Bilirubin,Total 0.4 mg/dL (0.2-1.3); Blood Urea Nitrogen 8 mg/dL (7-17); Calcium 8.3 mg/dL (8.4-10.2); Carbon Dioxide 28 mmol/L (22-30); Chloride 102 mmol/L (98-107); Estimated CRCL calculation 59 ml/min; Estimated Glomerular Filt Rate > 60; Glucose 293 mg/dL (65-110); Potassium 3.1 mmol/L (3.4-5.0); Sodium 136 mmol/L (137-145)
[2023-08-01 17:50] LABS: NT Pro B Type Natriuretic Pept 26 pg/mL (19.9-100)
[2023-08-01 17:55] LABS: Troponin I < 0.012 ng/mL (0.000-0.034)
[2023-08-01] MEDS: KETOROLAC 30 MG/ML VIAL (*BKC) IV PUSH (18:04)
[2023-08-01] MEDS: CRASH CART LOCKS 1 EACH XX (18:06)
[2023-08-01] MEDS: ONDANSETRON INJ 4 MG/2 ML VIAL IV PUSH (18:06)
[2023-08-01] MEDS: BELLADONNA ALK/PHENOB ELIX 10 ML, MAG HYDROX/ALUMINUM HYD/SIMETH 30 ML, LIDOCAINE HCL 2... PO (18:06)
[2023-08-01 18:37] LABS: Influenza A QL RT-PCR Negative (Negative); Influenza B QL RT-PCR Negative (Negative); SARS-CoV-2 RNA PCR Negative (Negative)
--- NOTE | 2023-08-01 19:59 | ED.CHESTPAIN ---
HPI - Chest Pain General Chief Complaint: Chest Pain Stated Complaint: STEMI Time Seen by Provider: 08/01/23 17:07 History of Present Illness HPI narrative: Patient is a 47-year-old female who presents ER with reports of chest pain and abdominal pain ongoing throughout the entire day. Aching in nature. No radiation. No fevers or chills or sweats. Associate with heartburn as well as some nausea. EMS initially reported as STEMI on the patient however EKG reviewed repeat EKG here shows that there is no STEMI. Patient reports she has some anginal chest discomfort that separate from the pain she is currently having and she is supposed to see a ripsaw operator in a couple weeks. Pain is worsened by palpating her left chest wall and with physical movements. Related Data Home Medications Medication Instructions Recorded Confirmed sertraline 100 mg tablet (Zoloft) 100 mg PO DAILY 06/20/20 07/21/23 aripiprazole 20 mg tablet 20 mg PO DAILY 07/21/23 07/21/23 ibuprofen 800 mg tablet 800 mg PO Q8H PRN Pain 07/21/23 07/21/23 levothyroxine 100 mcg tablet 100 mcg PO DAILY 07/21/23 07/21/23 pramipexole 0.25 mg tablet 0.25 mg PO DAILY 07/21/23 07/21/23 Allergies Allergy/AdvReac Type Severity Reaction Status Date / Time adhesive Allergy Severe blisters Verified 07/30/23 10:36 Influenza Virus Vaccines Allergy Severe Anaphylaxis Verified 07/30/23 10:36 Sulfa (Sulfonamide Allergy Severe Anaphylaxis Verified 07/30/23 10:36 Antibiotics) hydrocodone Allergy Intermediate Rash Verified 07/30/23 10:36 oxycodone Allergy Intermediate Rash Verified 07/30/23 10:36 pine tree Allergy Intermediate Rash Uncoded 07/30/23 10:36 Review of Systems Review of Systems: All systems reviewed & are unremarkable except as noted in HPI and below Constitutional: Constitutional: Denies chills, Denies fatigue and Denies fever(s) Cardiovascular: Cardiovascular: Reports chest pain, Denies rapid heart rate and Denies radiating jaw, neck or arm pain Respiratory: Respiratory: Denies cough and Denies dyspnea Gastrointestinal: Gastrointestinal: Reports abdominal pain, Reports heartburn, Denies nausea and Denies vomiting Genitourinary: Genitourinary: Denies dysuria, Denies pelvic pain and Denies flank pain Neurologic: Reports system reviewed and no additional complaints, except as documented [facility] Past Medical History Medical History (Updated 08/01/23 @ 21:12 by Shmuel Silva MD) Acquired hypothyroidism Post-ablative hypothyroidism. Adenomatous colon polyp Bipolar disorder Bloating Cerebrovascular accident With resultant memory loss. Colon cancer Status post polypectomy with oral chemotherapy and radiation. Depression Dyslipidemia Fibromyalgia Gastroesophageal reflux disease Graves disease Status post radioactive iodine ablation at the age of 15. Hiatal hernia Insomnia Neuropathy Posttraumatic stress disorder Restless leg syndrome Seizure disorder Stroke Tobacco dependence Uterine cancer Status post hysterectomy and bilateral salpingo-oophorectomy. Surgical History Surgical History History of appendectomy History of cholecystectomy History of colonoscopy with polypectomy History of elbow surgery Left. History of neck surgery Diskectomy and fusion. History of Deanna fundoplication (~02/22/21) History of total abdominal hysterectomy and bilateral salpingo-oophorectomy Family History Family History Sibling Carcinoma of colon Grandparent Acute myocardial infarction Other Family history of arthritis Family history of malignant neoplasm Social History Social History Social History: Surrogate decision maker: Jennifer Leal, mother. Code status: Full code. Smoking packs per day: 1 Smoking cigarettes per day: 20.0 Years smoked: 30 Smoking pack-years: 3
[2023-08-01 20:40] LABS: Troponin I < 0.012 ng/mL (0.000-0.034)
== END 2023-08-01 21:35 | disposition home or self-care (01) ==
PROVIDERS: Emergency Provider Emergency Medicine; PCP Nurse Practitioner
DX: R07.89 Other chest pain (principal); R10.9 Unspecified abdominal pain; Z20.822 Contact with and (suspected) exposure to COVID-19; E78.5 Hyperlipidemia, unspecified; E89.0 Postprocedural hypothyroidism; M79.7 Fibromyalgia; G40.909 Epilepsy, unspecified, not intractable, without status epilepticus; G62.9 Polyneuropathy, unspecified; G25.81 Restless legs syndrome; K21.9 Gastro-esophageal reflux disease without esophagitis; F17.210 Nicotine dependence, cigarettes, uncomplicated; Z85.038 Personal history of other malignant neoplasm of large intestine; Z85.42 Personal history of malignant neoplasm of other parts of uterus; Z86.73 Personal history of transient ischemic attack (TIA), and cerebral infarction without residual deficits; Z92.21 Personal history of antineoplastic chemotherapy; Z92.3 Personal history of irradiation; Z86.010 Personal history of colon polyps; Z90.49 Acquired absence of other specified parts of digestive tract; Z90.710 Acquired absence of both cervix and uterus; Z90.79 Acquired absence of other genital organ(s); Z90.722 Acquired absence of ovaries, bilateral; R94.31 Abnormal electrocardiogram [ECG] [EKG]
CPT/HCPCS: 36415; 71045; 80053; 83880; 84484; 85025; 85610; 85730; 87636; 93005; 96374; 96375; 99284; A9270; J1885; J2405

== ENCOUNTER 2024-01-13 19:03 | Emergency (ER) | payer OTHER, SELFPAY ==
[2024-01-13] VITALS (8 sets, daily range): BP systolic 92–116; BP diastolic 52–58; PULSE 61–82; RESP 15–18; TEMP 37; O2SAT 94–100
--- NOTE | ~2024-01-13 | CT_ITS ---
EXAMINATION: CTA brain carotid DATE: 01/13/2024 20:17 INDICATION: Seizure. TECHNIQUE: Computed tomographic angiography (CTA) of the head was performed without and with 100 mL O mnipaque-350 intravenous contrast. CTA of the neck was performed with intravenous contrast. Automated exposure control and iterative reconstruction technique were employed. The dose-length product was 1 696.61 mGy-cm. Maximum intensity projection and volume rendered 3D-reconstructions were created by stefan technologist on a separate workstation. COMPARISON: Head CT 11/20/2018 FINDINGS: HEAD CTA: There is no intracranial hemorrhage, acute infarction, or abnormal intracranial mass lesion . The ventricles are normal in size. The orbits are normal. The paranasal sinuses are clear. The mast oid air cells are normal. The vertebral arteries are codominant. There is no significant stenosis of basilar artery or the posterior cerebral arteries. There is no significant stenosis of the intracrani al internal carotid arteries or anterior or middle cerebral arteries. Anterior communicating artery i s normal. The posterior communicating arteries are normal. There is no aneurysm. NECK CTA: The lungs demonstrate dependent mild atelectasis. There are no pathologically enlarged lymp h nodes. There is no significant stenosis of the vertebral arteries. There is minimal plaque in the p roximal internal carotid arteries. There is 0% stenosis of the proximal right internal carotid artery relative to normal distal artery lumen diameter (NASCET criteria). There is 0% stenosis of the proxi mal left internal carotid artery relative to normal distal artery lumen diameter. There are changes o f anterior fusion procedure at C5-C6. There is mild cervical spondylosis. IMPRESSION: 1. Normal brain. 2. No aneurysm or significant intracranial arterial stenosis. 3. 0% stenosis of the proximal internal carotid arteries relative to normal distal artery lumen diame ters (NASCET criteria). Reviewed, dictated and finalized at location E. COMMUNICATIONS ANALYST IMPRESSION: 1. Normal brain. 2. No aneurysm or significant intracranial arterial stenosis. 3. 0% stenosis of the proximal internal carotid arteries relative to normal dis apolinar artery lumen diameters (NASCET criteria).
--- NOTE | 2024-01-13 19:11 | ECG_ITS ---
Measurements Intervals [place] Rate: 68 P: 61 IA: 201 QRS: 79 QRSD: 86 T: 80 QT: 423 QTc: 453 Interpretive Statements SINUS RHYTHM MODERATE T-WAVE ABNORMALITY, CONSIDER ANTERIOR ISCHEMIA [-0.1+ mV T-WAVE IN V3/V4] ABNORMAL ECG COMPARED TO ECG 08/01/2023 17:06:33 T-WAVE ABNORMALITY MORE PRONOUNCED Electronically Signed On 01-14-2024 16:18:25 911 EMERGENCY DISPATCHER by Edgar Wright M.D.
--- NOTE | 2024-01-13 19:19 | ED.GENADULT ---
HPI - General Adult General Chief complaint: Seizure Stated complaint: FOCAL SZ X 10 MIN, POST ICTAL History of Present Illness HPI narrative: 48-year-old female presenting to the emergency department for evaluation after seizure. Patient does have a history of seizures and has seizures approximately twice a month, patient's last seizure was approximately 2 weeks ago. Patient fell this current seizure was longer than usual. Patient was postictal upon arrival to the emergency department. Related Data Home Medications Medication Instructions Recorded Confirmed aripiprazole 20 mg tablet 20 mg PO DAILY 07/21/23 08/13/23 ibuprofen 800 mg tablet 800 mg PO Q8H PRN Pain 07/21/23 08/13/23 levothyroxine 100 mcg tablet 100 mcg PO DAILY 07/21/23 08/13/23 pramipexole 0.25 mg tablet 0.25 mg PO DAILY 07/21/23 08/13/23 Allergies Allergy/AdvReac Type Severity Reaction Status Date / Time adhesive Allergy Severe blisters Verified 12/23/23 11:10 Influenza Virus Vaccines Allergy Severe Anaphylaxis Verified 12/23/23 11:10 Sulfa (Sulfonamide Allergy Severe Anaphylaxis Verified 12/23/23 11:10 Antibiotics) hydrocodone Allergy Intermediate Rash Verified 12/23/23 11:10 oxycodone Allergy Intermediate Rash Verified 12/23/23 11:10 pine tree Allergy Intermediate Rash Uncoded 12/23/23 11:10 Review of Systems Review of Systems: All systems reviewed & are unremarkable except as noted in HPI and below PMFSH Past Medical History Medical History Acquired hypothyroidism Post-ablative hypothyroidism. Adenomatous colon polyp Bipolar disorder Bloating Cerebrovascular accident With resultant memory loss. Colon cancer Status post polypectomy with oral chemotherapy and radiation. Depression Dyslipidemia Fibromyalgia Gastroesophageal reflux disease Graves disease Status post radioactive iodine ablation at the age of 15. Hiatal hernia Insomnia Neuropathy Posttraumatic stress disorder Restless leg syndrome Seizure disorder Stroke Tobacco dependence Uterine cancer Status post hysterectomy and bilateral salpingo-oophorectomy. Surgical History Surgical History History of appendectomy History of cholecystectomy History of colonoscopy with polypectomy History of elbow surgery Left. History of neck surgery Diskectomy and fusion. History of Deanna fundoplication (~02/22/21) History of total abdominal hysterectomy and bilateral salpingo-oophorectomy Family History Family History Sibling Carcinoma of colon Grandparent Acute myocardial infarction Other Family history of arthritis Family history of malignant neoplasm Social History Social History (Updated 12/23/23 @ 11:13 by Mariajose Pavon MA) Social History: Surrogate decision maker: Jennifer Leal, mother. Code status: Full code. Smoking packs per day: 1 Smoking cigarettes per day: 20.0 Years smoked: 30 Smoking pack-years: 30.00 Smoking status: Current every day smoker Tobacco type: cigarettes Alcohol intake: never Alcohol use details: rare Substance use: current Substance use type: marijuana Other substance usage details: 2 X WEEK Last use: 02/21/21 Do You Feel Safe in your Home?: Yes Lack of Transportation: No Lack of Food: Sometimes True Current Housing: I Have Housing Concerned About Future Housing: No Difficulty Paying Gas/Electric Bills: No Difficulty Paying for Meds: No Currently Unemployed: No Education: Associate Degree Difficulty w/ Childcare or Family Care: No Living arrangements: with family Additional living arrangements comments: The patient lives alone in [place]. She has 2 grown sons. She has cats and dogs at home. 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 Occupation/Education: unemployed Additional occupation/education comments: Unemploye
[2024-01-13] MEDS: SODIUM CHLORIDE 0.9% IV 1,000 ML 999 ML IV CONT ×3 (19:24→20:57)
[2024-01-13 19:36] LABS: Basophils Absolute Auto 0.1 K/mm3 (0.0-0.1); Basophils Percent Auto 0.8 % (0.2-1.2); Eosinophils Percent Auto 0.3 % (0-4.4); Hematocrit 37.3 % (37.0-47.0); Hemoglobin 12.6 g/dL (12.0-15.0); Immature Granulocyte Absolute 0.04 K/mm3 (0.00-0.031); Immature Granulocyte Percent A 0.3 % (0-0.5); Lymphocytes Absolute Auto 4.36 K/mm3 (0.9-3.2); Lymphocytes Percent Auto 36.7 % (18.3-44.2); Mean Corpuscular HGB Conc 33.8 g/dl (32-36); Mean Corpuscular Hemoglobin 31.5 pg (26-34); Mean Corpuscular Volume 93.3 fl (80-100); Mean Platelet Volume 10.2 fl (7.4-10.4); Monocytes Absolute Auto 0.7 K/mm3 (0.1-0.6); Monocytes Percent Auto 5.8 % (2.6-8.5); Neutrophils Absolute Auto 6.7 K/mm3 (1.3-6.7); Neutrophils Percent Auto 56.1 % (45.5-73.1); Platelet Count Result 273 k/mm3 (150-375); Red Cell Distribution Width 11.9 % (11.5-14.5); White Blood Count 11.9 K/mm3 (4.5-10.0)
[2024-01-13 19:41] LABS: Appearance Urine Clear (Clear); Bilirubin Urine Negative (Negative); Blood Urine Negative (Negative); Color Urine Yellow (Yellow); Glucose Urine UA Negative (Negative); Ketones Urine Negative (Negative); Leukocyte Esterase Ur Negative LEU/UL (Negative); Nitrate Urine Negative (Negative); Protein Urine Negative (Negative); Specific Grav Ur 1.005 (1.001-1.035); Urobilinogen Urine 0.2 mg/dL (<2.0); pH Urine 5.5 (5.0-9.0)
[2024-01-13 19:44] LABS: Add Urine Microscopic? NO
[2024-01-13 19:46] LABS: Lactic Acid Reflex 1.8 mmol/L (0.7-2.0)
[2024-01-13 19:47] LABS: Partial Thromboplastin Time 23.4 SECONDS (22.3-36.8); Prothrombin Time 13.4 Seconds (11.1-14.7)
[2024-01-13 19:50] LABS: Alanine Aminotransferase 28 U/L (6-35); Albumin Level 3.9 g/dL (3.5-5.1); Alkaline Phosphatase 65 U/L (38-126); Anion Gap 4 mmol/L (8-16); Aspartate Amino Transferase 24 U/L (14-36); Bilirubin,Total 0.4 mg/dL (0.2-1.3); Blood Urea Nitrogen 9 mg/dL (7-17); Calcium 8.8 mg/dL (8.4-10.2); Carbon Dioxide 28 mmol/L (22-30); Chloride 103 mmol/L (98-107); Estimated CRCL calculation 55 ml/min; Estimated Glomerular Filt Rate > 60; Glucose 122 mg/dL (65-110); Potassium 2.8 mmol/L (3.4-5.0); Sodium 135 mmol/L (137-145)
[2024-01-13 19:53] LABS: Amphetamine Screen Urine Negative (Negative); Barbiturate Screen Urine Negative (Negative); Benzodiazepines Screen Urine Negative (Negative); Cannabinoid Screen Urine Positive (Negative); Cocaine Screen Urine Negative (Negative); Methadone Screen Urine Negative (Negative); Opiate Screen Urine Negative (Negative); Phencyclidine Screen Urine Negative (Negative)
[2024-01-13 20:02] LABS: Glucose Point of Care 131 mg/dl (65-105)
[2024-01-13] MEDS: KCL 20 MEQ/SW 100 ML 100 ML 50 MEQ IVPB (20:18)
--- NOTE | 2024-01-13 20:22 | PC.NURSE ---
Pt stated to this RN I think I am still having a seizure . Pt is now a&ox4 and responds to verbal stimuli, pt reports i cant feel my body but did complain of pain at IV site with start of IV potassium drip. Pt remains lethargic but is able to follow all commands.
[2024-01-13 20:25] LABS: Magnesium 2.2 mg/dL (1.6-2.3)
[2024-01-13 20:46] LABS: Influenza A QL RT-PCR Negative (Negative); Influenza B QL RT-PCR Negative (Negative); RSV RNA, RT-PCR Negative (Negative); SARS-CoV-2 RNA PCR Negative (Negative)
[2024-01-13] MEDS: POTASSIUM CHLORIDE 20 MEQ PACKET (FOR LIQUID) 40 MEQ PO (20:56)
== END 2024-01-14 00:10 | disposition home or self-care (01) ==
PROVIDERS: Emergency Provider Emergency Medicine; PCP Nurse Practitioner
DX: G40.909 Epilepsy, unspecified, not intractable, without status epilepticus (principal); Z20.822 Contact with and (suspected) exposure to COVID-19; I69.911 Memory deficit following unspecified cerebrovascular disease; E03.9 Hypothyroidism, unspecified; E78.5 Hyperlipidemia, unspecified; G62.9 Polyneuropathy, unspecified; G25.81 Restless legs syndrome; K21.9 Gastro-esophageal reflux disease without esophagitis; K44.9 Diaphragmatic hernia without obstruction or gangrene; M79.7 Fibromyalgia; F17.210 Nicotine dependence, cigarettes, uncomplicated; Z85.42 Personal history of malignant neoplasm of other parts of uterus; Z85.038 Personal history of other malignant neoplasm of large intestine; Z86.010 Personal history of colon polyps; Z92.21 Personal history of antineoplastic chemotherapy; Z92.3 Personal history of irradiation; Z90.710 Acquired absence of both cervix and uterus; Z90.722 Acquired absence of ovaries, bilateral; Z90.79 Acquired absence of other genital organ(s); Z90.49 Acquired absence of other specified parts of digestive tract; R94.31 Abnormal electrocardiogram [ECG] [EKG]
CPT/HCPCS: 36415; 70496; 70498; 80053; 80307; 81003; 82948; 83605; 83735; 85025; 85610; 85730; 87637; 93005; 96361; 96365; 96366; 99284; A9270; J3480; J7030; Q9967

== ENCOUNTER 2024-02-06 13:32 | Outpatient (CLI) | payer OTHER, SELFPAY ==
[2024-02-06 14:15] LABS: Basophils Absolute Auto 0.1 K/mm3 (0.0-0.1); Basophils Percent Auto 0.9 % (0.2-1.2); Eosinophils Percent Auto 0.2 % (0-4.4); Hemoglobin 13.9 g/dL (12.0-15.0); Immature Granulocyte Absolute 0.01 K/mm3 (0.00-0.031); Immature Granulocyte Percent A 0.2 % (0-0.5); Lymphocytes Absolute Auto 2.19 K/mm3 (0.9-3.2); Lymphocytes Percent Auto 33.4 % (18.3-44.2); Mean Corpuscular HGB Conc 33.9 g/dl (32-36); Mean Corpuscular Volume 94.3 fl (80-100); Mean Platelet Volume 10.6 fl (7.4-10.4); Monocytes Absolute Auto 0.3 K/mm3 (0.1-0.6); Monocytes Percent Auto 4.3 % (2.6-8.5); Platelet Count Result 242 k/mm3 (150-375); Red Blood Count 4.35 M/mm3 (4.2-5.4); White Blood Count 6.6 K/mm3 (4.5-10.0)
[2024-02-06 16:06] LABS: Hemoglobin A1C 5.1 % (<5.7)
[2024-02-06 18:42] LABS: Alanine Aminotransferase 31 U/L (6-35); Albumin Level 4.1 g/dL (3.5-5.1); Alkaline Phosphatase 88 U/L (38-126); Anion Gap 4 mmol/L (8-16); Aspartate Amino Transferase 30 U/L (14-36); Bilirubin,Total 0.5 mg/dL (0.2-1.3); Blood Urea Nitrogen 10 mg/dL (7-17); Calcium 9.5 mg/dL (8.4-10.2); Carbon Dioxide 29 mmol/L (22-30); Chloride 108 mmol/L (98-107); Estimated Glomerular Filt Rate > 60; Glucose 87 mg/dL (65-110); Potassium 3.9 mmol/L (3.4-5.0); Sodium 141 mmol/L (137-145)
[2024-02-08 18:29] LABS: Levetiracetam Keppra 5.8 mcg/mL (6.0-46.0)
[2024-02-09 21:17] LABS: Arsenic, Blood <3 mcg/L (<23); Lead, Blood <1.0 mcg/dL (<3.5); Mercury, Blood <4 mcg/L (<=10)
[2024-02-10 04:56] LABS: Zinc 66 mcg/dL (60-130)
[2024-02-10 14:31] LABS: Vitamin B6 <2.0 ng/mL (2.1-21.7)
[2024-02-10 20:54] LABS: SS-A <1.0; SS-B <1.0
[2024-02-11 12:34] LABS: Anti Nuclear Antibody Titer 1:40 (Negative)
[2024-02-11 14:17] LABS: Vitamin B1 7 nmol/L (8-30)
[2024-02-25 15:59] LABS: Collection Sample Venous
== END 2024-02-06 13:33 | disposition home or self-care (01) ==
PROVIDERS: PCP Nurse Practitioner; Visit Provider Student in an Organized Health Care Education/Training Program
DX: G40.909 Epilepsy, unspecified, not intractable, without status epilepticus (principal)
CPT/HCPCS: 36415; 80053; 80177; 82175; 82525; 82607; 83036; 83655; 83825; 84207; 84425; 84443; 84630; 85025; 86038; 86039; 86235; 86334; 86335

== ENCOUNTER 2024-05-24 09:19 | Outpatient (CLI) | payer OTHER, SELFPAY ==
--- NOTE | 2024-05-24 10:30 | NEURO_ITS ---
Clinical Note: Patient has complaints of paresthesias in both upper limbs. There is a history of surgery on cervical spine. on brief neurological examination no focal muscle wasting or weakness or fasciculations were seen. Please refer to a detailed report of nerve study and EMG. Summary of findings: 1. Bilateral median, ulnar palmar and digital, radial sensory distal latency and amplitudes were within normal limits. 2. Bilateral median motor distal latencies, amplitudes and conduction velocities were within acceptable normal limits. 3. Bilateral ulnar motor distal latencies, amplitudes and conduction velocities were within normal limits. No focal slowing was seen across elbow. 4. EMG examination was performed using a monopolar needle electrode. Various muscles examined in both upper limbs. No denervation changes were seen. Motor unit amplitude and conduction velocities were within acceptable. Impression: EMG and nerve conduction study findings on both upper limbs were within acceptable normal limits. Kristopher Valadez MD,FAAN,FAANEM Neurology/ Electrodiagnostic Medicine Nerve Conduction Studies Anti Sensory Summary Table Stim Site NR Onset (ms) Peak (ms) P-T Amp (?V) Site1 Site2 Delta-0 (ms) Dist (mm) Moisés (m/s) Left Median DIII Anti Sensory (3rd Digit) Wrist 2.5 3.4 84.7 Wrist 3rd Digit 2.5 140 56 Right Median DIII Anti Sensory (3rd Digit) Wrist 2.8 3.6 87.0 Wrist 3rd Digit 2.8 145 52 Left Radial Anti Sensory (Base 1st Digit) Wrist 1.2 1.8 109.7 Wrist Base 1st Digit 1.2 80 67 Right Radial Anti Sensory (Base 1st Digit) Wrist 1.4 1.9 84.1 Wrist Base 1st Digit 1.4 80 57 Left Ulnar Anti Sensory (5th Digit) Wrist 2.8 3.5 67.2 Wrist 5th Digit 2.8 140 50 Right Ulnar Anti Sensory (5th Digit) Wrist 2.9 3.7 27.1 Wrist 5th Digit 2.9 150 52 Motor Summary Table Stim Site NR Onset (ms) O-P Amp (mV) Site1 Site2 Delta-0 (ms) Dist (mm) Moisés (m/s) Left Median Motor (Abd Poll Brev) Wrist 4.7 6.9 Wrist Wrist 0.0 0 Elbow 8.6 7.3 Wrist Elbow 3.9 210 54 Right Median Motor (Abd Poll Brev) Wrist 3.9 10.8 Wrist Wrist 0.0 80 Elbow 7.7 9.1 Wrist Elbow 3.8 215 57 Left Ulnar Motor (Abd Dig Minimi) Wrist 3.3 7.9 Wrist Wrist 0.0 80 B Elbow 6.9 8.0 B Elbow Wrist 3.6 190 53 A Elbow 8.1 8.5 A Elbow B Elbow 1.2 75 63 Right Ulnar Motor (Abd Dig Minimi) Wrist 3.0 9.9 Wrist Wrist 0.0 0 B Elbow 6.6 9.7 B Elbow Wrist 3.6 205 57 A Elbow 7.5 9.5 A Elbow B Elbow 0.9 70 78 Comparison Summary Table Stim Site NR Onset (ms) Peak (ms) P-T Amp (?V) Site1 Site2 Moisés (m/s) Dist (mm) Left Median/Ulnar Palm Comparison (Wrist - 8cm) Median Palm 1.5 2.1 68.0 Median Palm Wrist - 8cm 53 80 Ulnar Palm 1.6 2.0 50.0 Ulnar Palm Wrist - 8cm 50 80 Right Median/Ulnar Palm Comparison (Wrist - 8cm) Median Palm 1.9 2.5 75.9 Median Palm Wrist - 8cm 42 80 Ulnar Palm 2.0 2.4 45.1 Ulnar Palm Wrist - 8cm 40 80 EMG Side Muscle Nerve Ins Act Fibs Psw Amp Dur Recrt Comment Right Deltoid Axillary Nml Nml Nml Nml Nml Nml Right Triceps Radial Nml Nml Nml Nml Nml Nml Right ExtCarUln Radial (Post Int) Nml Nml Nml Nml Nml Nml Right FlexPolLong Median (Ant Int) Nml Nml Nml Nml Nml Nml Right 1stDorInt Ulnar Nml Nml Nml Nml Nml Nml Left Deltoid Axillary Nml Nml Nml Nml Nml Nml Left Triceps Radial Nml Nml Nml Nml Nml Nml Left ExtCarUln Radial (Post Int) Nml Nml Nml Nml Nml Nml Left FlexPolLong Median (Ant I
== END 2024-05-24 09:20 | disposition home or self-care (01) ==
LOC: ANHNEURO 09:21
PROVIDERS: PCP Nurse Practitioner; Visit Provider Student in an Organized Health Care Education/Training Program
DX: G62.9 Polyneuropathy, unspecified (principal); I63.9 Cerebral infarction, unspecified; R76.8 Other specified abnormal immunological findings in serum; G56.03 Carpal tunnel syndrome, bilateral upper limbs; G56.23 Lesion of ulnar nerve, bilateral upper limbs
CPT/HCPCS: 86147; 95886; 95912

== ENCOUNTER 2024-05-31 15:39 | Outpatient (CLI) | payer OTHER, SELFPAY ==
[2024-05-31 16:38] LABS: D Dimer < 0.27 ug/mL (<0.48); LDL Cholesterol Direct 98 mg/dL
[2024-06-01 11:28] LABS: Homocysteine 13.3 umol/L (<10.4)
[2024-06-01 19:44] LABS: Lupus dRVVT Screen 34 sec (< OR = 45); PTT-LA Screen 32 sec (< OR = 40)
[2024-06-02 13:28] LABS: Hemoglobin A1C 5.3 % (<5.7)
[2024-06-02 13:45] LABS: Lipoprotein A 28 nmol/L
[2024-06-03 02:08] LABS: APC Ratio 4.9 ratio (>=2.1)
[2024-06-03 03:19] LABS: Anti Cardio Antibody IgM <2.0 MPL-U/mL; Anti Cardiolipin Antibody IgA <2.0 APL-U/mL; Anti Cardiolipin Antibody IgG <2.0 GPL-U/mL
[2024-06-03 04:04] LABS: Antithrombin III Activity 142 % normal (80-135)
[2024-06-03 12:43] LABS: Factor VIII Activity 111 % normal (50-180)
== END 2024-05-31 15:40 | disposition home or self-care (01) ==
PROVIDERS: PCP Nurse Practitioner; Visit Provider Student in an Organized Health Care Education/Training Program
DX: I63.9 Cerebral infarction, unspecified (principal); G62.9 Polyneuropathy, unspecified; R76.8 Other specified abnormal immunological findings in serum
CPT/HCPCS: 36415; 83036; 83090; 83695; 83721; 85240; 85300; 85303; 85306; 85307; 85380; 85613; 85730; 86146; 86147

== ENCOUNTER 2024-06-07 09:06 | Outpatient (CLI) | payer OTHER, SELFPAY ==
--- NOTE | 2024-06-07 11:15 | NEURO_ITS ---
Clinical note: Patient is 48 years old with history of paresthesias in both lower limbs and lower back pain. No history of diabetes mellitus. The results of study are given below. Summary of findings: 1. Left and right sural sensory distal latencies, amplitude and conduction velocity within normal limits. 2. Left and right medial plantar sensory distal latencies amplitudes and conduction velocities were within acceptable normal limits however amplitudes were slightly lower on the right than left side. 3. Left and right peroneal and tibial motor distal latencies, amplitudes and conduction velocities were within acceptable normal limits. 4. Bilateral H-reflex latencies were within normal limits however amplitudes are moderately decreased. 5. EMG and nerve conduction study was performed on various muscles in lower limbs and related paraspinal muscles. No denervation changes were seen. Motor unit amplitude, duration and recruitment pattern were within acceptable normal limits. Impression: EMG and nerve conduction study of both lower limbs are considered within acceptable normal limits. H reflex amplitudes were moderately decreased. This may raise possibility of chronic S1 radiculopathy however no denervation changes were seen in this distribution at this time. Clinical and if necessary radiographic correlation may be helpful. This study did not show evidence for polyneuropathy however this would not rule out possibility of small fiber neuropathy. Clinical correlation and follow-up study in Future may be helpful. Kristopher Valadez MD, FAAN, FAANEM Neurologist / Eectrodiagnostic Medicine Nerve Conduction Studies Anti Sensory Summary Table Stim Site NR Onset (ms) Peak (ms) P-T Amp (?V) Site1 Site2 Delta-0 (ms) Dist (mm) Moisés (m/s) Left Sural Anti Sensory (Lat Mall) Calf 2.9 3.8 17.9 Calf Lat Mall 2.9 120 41 Right Sural Anti Sensory (Lat Mall) Calf 2.9 3.5 13.2 Calf Lat Mall 2.9 120 41 Ortho Sensory Summary Table Stim Site NR Onset (ms) Peak (ms) P-T Amp (?V) Site1 Site2 Delta-0 (ms) Dist (mm) Moisés (m/s) Left Medial Plantar Ortho Sensory (Med Malleolus) Digit 1 2.4 2.9 9.0 Digit 1 Med Malleolus 2.4 120 50 Right Medial Plantar Ortho Sensory (Med Malleolus) Digit 1 2.3 3.0 6.0 Digit 1 Med Malleolus 2.3 120 52 Motor Summary Table Stim Site NR Onset (ms) O-P Amp (mV) Site1 Site2 Delta-0 (ms) Dist (mm) Moisés (m/s) Left Peroneal Motor (Ext Dig Brev) Ankle 4.7 4.4 Ankle Ankle 0.0 70 B Fib 10.6 4.1 Ankle B Fib 5.9 295 50 Popit 12.2 4.2 B Fib Popit 1.6 80 50 Right Peroneal Motor (Ext Dig Brev) Ankle 5.0 5.0 Ankle Ankle 0.0 70 B Fib 10.6 4.0 Ankle B Fib 5.6 260 46 Popit 11.9 4.2 B Fib Popit 1.3 80 62 Left Tibial Motor (Abd Hays Brev) Ankle 4.1 15.9 Ankle Ankle 0.0 100 Knee 14.1 11.8 Ankle Knee 10.0 405 41 Right Tibial Motor (Abd Hays Brev) Ankle 4.2 8.4 Ankle Ankle 0.0 90 Knee 13.7 6.7 Ankle Knee 9.5 410 43 H Reflex Studies NR H-Lat (ms) Max H-Amp (mV) L-R H-Lat (ms) L-R H-Lat Norm M-Lat (ms) M-Amp (mV) H-M Lat (ms) H/M Ratio Left Tibial (Mrkrs) (Gastroc) 31.25 1.91 0.16 <2.0 5.47 22.17 25.78 8.62 Right Tibial (Mrkrs) (Gastroc) 31.41 3.12 0.16 <2.0 5.47 10.64 25.94 29.32 EMG Side Muscle Nerve Ins Act Fibs Psw Amp Dur Recrt Comment Right BicepsFemS Sciatic Nml Nml Nml Nml Nml Nml Right Semimembranosus Sciatic Nml Nml Nml Nml Nml Nml Right AntTibialis Dp Br Fibular Nml Nml Nml Nml Nml Nml Right V
== END 2024-06-07 09:07 | disposition home or self-care (01) ==
LOC: ANHNEURO 09:07
PROVIDERS: PCP Nurse Practitioner; Visit Provider Student in an Organized Health Care Education/Training Program
DX: G62.9 Polyneuropathy, unspecified (principal)
CPT/HCPCS: 95886; 95910

== ENCOUNTER 2025-04-20 12:02 | Emergency (ER) | payer OTHER, SELFPAY ==
[2025-04-20] VITALS (8 sets, daily range): BP systolic 108–132; BP diastolic 54–82; PULSE 51–71; RESP 12–20; TEMP 36.2–36.9; O2SAT 97–100
--- NOTE | ~2025-04-20 | XR_ITS ---
CHEST RADIOGRAPH, PA AND LATERAL CLINICAL HISTORY: CP . COMPARISON: 08/01/2023 TECHNIQUE: PA and lateral views of the chest. FINDINGS The cardiomediastinal silhouette is unremarkable. The lungs are clear. Visualized osseous structures and soft tissues are unremarkable. IMPRESSION: No focal infiltrate or effusion. Reviewed, dictated and finalized at location A.
--- NOTE | 2025-04-20 12:05 | ECG_ITS ---
Test Date: 2025-04-20 12:21:39 Measurements Intervals [place] Rate: 64 P: 51 WI: 193 QRS: 84 QRSD: 82 T: 47 QT: 409 QTc: 424 Interpretive Statements SINUS RHYTHM No previous ECG available for comparison Electronically Signed On 04-21-2025 15:07:01 CDT by Hernesto Camp M.D.
--- OUTSIDE RECORDS SUMMARY | 2025-04-20 12:06 | XMS_ITS | Clinical Summary ---
Author Organization [facility] Address [address] [place] [address] Care Team Providers Care Adjunct Business Instructor Name Role Phone Aravind Menendez NP Primary Care Provider [phone] Allergies Active Allergy Reactions Criticality Noted Date Comments Adhesive Blisters High 12/05/2020 Haemophilus Influenzae Type B Mental status changes Low 08/26/2019 Hydrocodone Shortness of breath High 12/05/2020 Sulfa (Sulfonamide Antibiotics) Rash Medium 11/24 Medications ARIPiprazole (ABILIFY) 15 mg tablet Take 1 tablet (15 mg total) by mouth every evening 11/11/2020 Active gabapentin (NEURONTIN) 800 mg tablet 12/04/2020 Active Vimpat 200 mg tablet 10/03/2020 Active levothyroxine (SYNTHROID) 137 mcg tablet Take 1 tablet (137 mcg total) by mouth daily 11/13/2020 Active sertraline (ZOLOFT) 100 mg tablet TAKE 1 TABLET BY MOUTH EVERY DAY AT NOON 11/11/2020 Active traZODone (DESYREL) 150 mg tablet Take 1 tablet (150 mg total) by mouth nightly at bedtime 11/11/2020 Active atorvastatin (LIPITOR) 40 mg tablet Take 1 tablet (40 mg total) by mouth daily Active pramipexole (MIRAPEX) 0.25 mg tablet 02/16/2023 Active baclofen (LIORESAL) 10 mg tablet Take 1 tablet (10 mg total) by mouth 3 (three) times a day 90 tablet 2 02/19/[address] (CYMBALTA) 30 mg capsule Take by mouth daily 04/15/2023 Active Active Problems Patient Care Coordination No te Formatting of this note migh t be different from the original. Ear cleaning No known active problems Surgical History Surgery Date Site/Laterality Comments HYSTERECTOMY APPENDECTOMY CHOLECYSTECTOMY ELBOW SURGERY NECK SURGERY Medical History Medical History Date Comments Restless leg syndrome Seizure (HCC) Stroke (cerebrum) (HCC) Thyroid activity decreased Uterine cancer (HCC) Bipolar disorder (HCC) Bloating Colon cancer (HCC) Depression Epilepsy (HCC) Fibromyalgia Graves disease Hiatal hernia High cholesterol Insomnia Nausea and vomiting Neuropathy PTSD (post-traumatic stress disorder) Social History Tobacco Use Types Packs/Day Years Used Date Smoking Tobacco: Every Day Cigarettes Tobacco Cessation:Ready to Q uit: No; Counseling Given: No AUDIT-C Answer Date Recorded Q1: How often do you have a drink containing alc ohol? Never 02/19/2023 Average Number of Drinks Not on file 023 Q3: How often do you have si x or more drinks on one occasion? Never 02/19/2023 Comments No Sex and Gender Information Value Date Recorded Sex Assigned at Not on file Legal Sex Female 7:41 AM CDT Gender Identity Not on file Sexual Orientation Not on file Obstetrics History Last Filed Vital Signs Vital Sign Reading Time Taken Comments Blood Pressure 122/75 07/08/2023 10:09 AM CDT Pulse 64 07/08/2023 10:09 AM CDT Temperature 36.5 C (97.7 F) 03/24/2023 7:34 AM CDT Respiratory Rate 20 03/24/2023 7:34 AM CDT Oxygen Saturation 97% 03/24/2023 7:34 AM CDT Inhaled Oxygen Concentration - - Weight 63.5 kg (140 lb) 07/08/2023 10:09 AM CDT Height 154.9 cm (5' 1) 07/08/2023 10:09 AM CDT Body Mass Index 26.45 07/08/2023 10:09 AM CDT Plan of Treatment Health Maintenance Due Date Last Done Comments Breast Cancer Screening-Mammogram 1974 Colon Cancer Screening-Colonoscopy 1974 Depression Screening 1974 Hepatitis C Screening 1974 DTaP/Tdap/Td Vaccine (1 - Tdap) 1985 Hepatitis B Screening 1992 Regular Well Visit/Exam 18-64 1992 Pneumococcal vaccine <65 (1 of 2 - PCV) 1993 Covid-19 Vaccine (3 - 2023-25 season) 07/25/202403/2021, 08/01/2021 Zoster Vaccine (1 of 2) 2024 Influenza Vaccine (Season Ended) 2025 Goals Goal Patient Goal Type Associated Problems Recent Progress Patient-Stated? Author CCM Chronic Pain Care Plan Chronic Care Management Gracie Wilkins RN Note: Problem: Chronic Pain Goals: 1. Minimize further functional decline 2. Maximize quality of life 3. Control pain Strategies: - Activity/exercise program recommendation - Conservative stepwise pain medicine strategy with multi-disciplinary approach - Recommend healthy lifestyle strategies and compensatory methods as needed Insurance [facility] [place] [address] Care Teams Adjunct Business Instructor Relationship Specialty Start Date End Date Aravind Menendez NP [address] [place] [address] PCP - General Pain Management 12/06/22
--- OUTSIDE RECORDS SUMMARY | 2025-04-20 12:06 | XMS_ITS | Clinical Summary ---
Author Organization [facility] Address [address] [facility], [place] [address] Phone Care Team Providers Care Guard Driver Name Role Phone Corbin Romero DENTAL TREATMENT COORDINATOR, [employer]ING [employer] Primary Care Provide r Allergies Active Allergy Reactions Criticality Noted Date Comments Hydrocodone Rash Medium 09/10/2018 Influenza Virus Vaccine Unknown 08/26/2019 Oxycodone Hallucinations High 08/26/2019 Sulfa Antibiotics Unknown 08/26/2019 Medications venlafaxine (EFFEXOR) 75 MG Tablet Take 75 mg by mouth 3 times daily. Active gabapentin (NEURONTIN) 600 MG Tablet Take 800 mg by mouth 3 times daily. Active Lacosamide (VIMPAT) 200 MG Tablet Take 1 Tab by mouth 2 times daily. Active levothyroxine (SYNTHROID) 100 MCG Tablet Take 137 mcg by mouth daily. Active pramipexole (MIRAPEX) 0.25 MG Tablet Take 0.25 mg by mouth 3 times daily. Active atorvastatin (LIPITOR) 80 MG Tablet Take 40 mg by mouth daily. 0 08/07/2018 Active traZODone (DESYREL) 50 MG Tablet Take 100 mg by mouth nightly. 0 08/10/2018 Active methocarbamol (ROBAXIN-750) 750 MG Tablet Take 750 mg by mouth 4 times daily. Active escitalopram (LEXAPRO) 10 MG Tablet Take 10 mg by mouth daily. Active ARIPiprazole (ABILIFY) 10 MG Tablet Take 10 mg by mouth daily. Active Family History Medical History Relation Name Comments Coronary Artery Disease Father Hypertension Mother Thyroid Disease Mother Cancer Sister colon Colon Cancer Sister Relation Name Status Comments Father Mother Alive Sister Alive Social History Tobacco Use Types Packs/Day Years Used Date Smoking Tobacco: Every Day Cigarettes 1 20 Smokeless Tobacco: Never Alcohol Use Standard Drinks/Week Comments Yes 0 (1 standard drink = 0.6 oz pur e alcohol) rarely Comments Unknown Sex and Gender Information Value Date Recorded Sex Assigned at Not on file Legal Sex Female 1:16 PM CDT Gender Identity Not on file Sexual Orientation Not on file Occupation Industry Job Start Date Job End Date disabled Not on file Not on file Not on file Last Filed Vital Signs Vital Sign Reading Time Taken Comments Blood Pressure 112/59 09/20/2019 2:19 PM CDT Pulse 81 09/20/2019 2:15 PM CDT Temperature 36 C (96.8 F) 09/20/2019 2:19 PM CDT Respiratory Rate 15 09/20/2019 2:19 PM CDT Oxygen Saturation 96% 09/20/2019 2:19 PM CDT Inhaled Oxygen Concentration - - Weight 72.6 kg (160 lb) 09/06/2019 1:00 PM CDT Height 157.5 cm (5' 2) 09/06/2019 1:00 PM CDT Body Mass Index 29.26 09/06/2019 1:00 PM CDT Plan of Treatment Health Maintenance Due Date Last Done Comments Hepatitis C Virus (HCV) Screening 1974 TdaP Immunization 1974 Hepatitis B Immunization (1 of 3 - 19+ 3-dose series) 1993 Influenza Immunization (#1) 2024 SARS-COV-2 Immunization (3 - 2023- season) 2024 08/28/2021, 08/01/2021 Cologuard 2024 Immunochemical Fecal Occult Blood 2024 Pneumococcal Immunization (5 0+ years) (1 of 1 - PCV) 2024 Zoster Immunization (1 of 2) 2024 Colonoscopy 09/20/2029 09/20/2019 Colorectal Cancer Screening 09/20/2029 Respiratory Syncytial Virus (RSV) Immunization (Adult) (1 - 1-dose 75+ series) 2049 09/20/2019 Meningococcal Immunization (ACWY) Aged Out No longer eligible b ased on patient's age to complete this topic Rotavirus Immunization Aged Out No lo nger eligible based on patient's age to complete this topic Insurance MEDICAID [employer] Care Teams Guard Driver Relationship Specialty Start Date End Date Corbin Romero, DENTAL TREATMENT COORDINATOR, SPRING UPHOLSTERER [address] [facility] [place] [address] PCP - General Advanced Practice Nurse 09/14/19
--- OUTSIDE RECORDS SUMMARY | 2025-04-20 12:06 | XMS_ITS | CONTINUITY OF CARE DOCUMENT ---
Author Name mike mckeon Address Unknown Organization [facility] Address [address] [place] [address] Phone [phone] Care Team Providers Care Sample Processor Name Role Phone Fawad CONWAY, Yolanda Unavailable ANGY MILLER, SULY Unavailable [phone] ANGY RESOLUTION MANAGER, SULY Unavailable [phone] PROBLEMS Condition Status Date Provider Notes Cardiology examination completed 3 - Yolanda Celestin MD Epilepsy active Evangelina Ventimiglia [employer] B[employer]ING MACHINE OPERATOR Graves' disease active Evangelina Ventimiglia F RESOLUTION MANAGER Fibromyalgia active Evangelina Ventimiglia [employer] BORING MACHINE OPERATOR PTSD active Evangelina Ventimiglia [employer]ING [employer] BORING MACHINE OPERATOR Schizophrenia active Evangelina Ventimiglia [employer]ZING [employer] BORING MACHINE OPERATOR Hyperlipidemia active Evangelina Ventimiglia FN P Bipolar depression active Evangelina Ventimigli a ADZING AND BORING MACHINE OPERATOR Chest pain active Evangelina Ventimiglia [employer]ING [employer] BORING MACHINE OPERATOR Syncope active Evangelina Ventimiglia [employer]ING AND BORING MACHINE OPERATOR Tobacco abuse active Evangelina Ventimiglia [employer]ING [employer] BORING MACHINE OPERATOR Cardiology examination active Yolanda kimble MD Tiredness and Fatigue active Yolanda Celestin MD Abnormal nuclear stress test active Juan Celestin MD ENCOUNTERS Date Type Provider Location Encounter Diag nosis 12/08 - 12/08 In-person encounter Office Visit Yolanda Celestin MD [facility] 11/10 - 11/23 In-person encounter Office Visit Yolanda Celestin MD [facility] Abnormal nuclear stress test 10/13 - 10/14 In-person encounter Office Visit Yolanda Celestin MD [facility] Cardiology examinationTiredness and Fati fadi 10/01 - 10/13 In-person encounter Office Visit Yolanda Celestin MD [facility] 09/03 - 09/04 In-person encounter Office Visit Yolanda Celestin MD [facility] Cardiology examination 08/06 - 08/12 In-person encounter Office Visit Yolanda Celestin MD [facility] EpilepsyGraves' diseaseFibromyalgiaPTSDSchizophreniaHyperlipidemiaBi polar depressionChest painSyncopeTobacco abuse VITAL SIGNS Date Observation Value Provider Body Mass Index (Ratio) 26.71 kg/m2 Eloina Celestin MD blood pressure, diastolic 54 mm[Hg] Am mesha Ventimiglia [facility] blood pressure, systolic 106 mm[Hg] Axis nda Ventimiglia [facility] oxygen saturation, oximetry 99 % Evangelina Ventimiglia [facility] respiratory rate E&M 14 /min Evangelina Ventimiglia [facility] pulse rate 77 /min Evangelina Ventimig teddy [facility] height E&M 63 [in_i] Evangelina Ventimig teddy [facility] weight E&M 150.8 [lb_av] Evangelina Ventimi glia [facility] Body Mass Index (Ratio) 25.86 kg/m2 Eloina Celestin MD blood pressure, diastolic 83 mm[Hg] Ka yla Ruple blood pressure, systolic 117 mm[Hg] Clary la Ruple oxygen saturation, oximetry 98 % Meghna Ruple pulse rate 73 /min Meghna Rucentral [facility] weight E&M 146 [lb_av] Meghna Cadenacentral [facility] height E&M 63 [in_i] Meghna [facility] Body Mass Index (Ratio) 25.97 kg/m2 Eloina Celestin MD blood pressure, cuff size regular Marcus nelson Mcdaniels blood pressure, diastolic 74 mm[Hg] Marcus nelson Mcdaniels blood pressure, systolic 107 mm[Hg] Radha kasper Mcdaniels oxygen saturation, oximetry 97 % Marcuscaro centernicholas Mcdaniels pulse rate 73 /min Marcuscaro centernicholas Mcdaniels weight E&M 146.6 [lb_av] Marcuscaro centern Mcdaniels height E&M 63 [in_i] Marcuscaro centern Mcdaniels Body Mass Index (Ratio) 24.62 kg/m2 Eloina Celestin MD blood pressure, diastolic 77 mm[Hg] Li nkLogic blood pressure, systolic 111 mm[Hg] Kita kLogic blood pressure, cuff size regular Reggie rret blood pressure, diastolic 77 mm[Hg] Ja rret blood pressure, systolic 111 mm[Hg] Jar ret pulse rate 88 /min Joel er y weight E&M 139 [lb_av] Joel y respiratory rate E&M 12 /min Joel oxygen saturation, oximetry 97 % Joel height E&M 63 [in_i] Joel y Body Mass Index (Ratio) 24.62 kg/m2 Eloina Celestin MD blood pressure, diastolic 68 mm[Hg] An kade Arrington blood pressure, systolic 102 mm[Hg] Any a Murphy pulse rate 70 /min Candy Murphy oxygen saturation, oximetry 97 % Candy Murphy weight E&M 139 [lb_av] Candy Murphy blood pressure, cuff size regular An kade Murphy height E&M 63 [in_i] Candy Murphy Body Mass Index (Ratio) 24.97 kg/m2 Eloina Celestin MD weight E&M 141 [lb_av] Emma clayton height E&M 63 [in_i] [facility] 72 mm[Hg] Li nkLog blood pressure, systolic 112 mm[Hg] Kita kLog blood pressure, cuff size regular Ja rret blood pressure, diastolic 72 mm[Hg] Ja rret blood pressure, systolic 112 mm[Hg] Jar ret pulse rate 61 /min Joel y height E&M 63 [in_i] Joel y respiratory rate E&M 12 /min Joel oxygen saturation, oximetry 99 % Joel weight E&M 141 [lb_av] Joel y ALLERGIES Allergy Name Onset Date Reaction Criticality Status SULFA Low Criticality active HISTORY OF MEDICATION USE Medication Status Instructions Dates Provider Indications Com ments ranolazine 500 mg tablet extended release 12 hr active TAKE 1 TABLET BY MOUTH TWICE DAILY Evangelina Gaytanmiglia [employer]ING [employer] BORING MACHINE OPERATOR Topamax 50 mg tablet active 1 tablet by mouth once a day Evangelina Gaytanmigllolis SANTANAP escitalopram oxalate 10 mg tablet active Evangelina Ventimiglia [employer] BORING MACHINE OPERATOR lidocaine 4% adhesive patch,medicated active Apply 1 patch to skin once a day for pain Yolanda Celestin MD aripiprazole 20 mg tablet active 1 tablet by mouth once a day Evangelina Ventimiglia [employer] BORING MACHINE OPERATOR sertraline 100 mg tablet completed - Evangelina Ventimiglia [employer] BORING MACHINE OPERATOR levothyroxine 100 mcg tablet active Take 1 tablet by mouth once a day Evangelina Ventimiglia AD[employer]ING [employer] BORING MACHINE OPERATOR levetiracetam 500 mg tablet active 1 tablet by mouth once a day Evangelina Ventimiglia [employer]ING AND BORING MACHINE OPERATOR atorvastatin 40 mg tablet active TAKE 1 TABLET BY MOUTH EVERYDAY AT BEDTIME Evangelina Ventimiglia [employer]ZING AND BORING MACHINE OPERATOR lacosamide 200 mg tablet active Joel gabapentin 800 mg tablet active 1 tablet by mouth three times a day Evangelina Ventimiglia [employer]ING [employer] BORING MACHINE OPERATOR pramipexole 0.25 mg tablet active Joel trazodone 100 mg tablet active Joel SOCIAL HISTORY Date Observation Value Provider personal history of marijuana use yes Evangelina Ventimiglia [facility] drug use no Evangelina Ventimig teddy [employer] BORING MACHINE OPERATOR alcohol use no Evangelina Ventimig teddy [employer]ING [employer] BORING MACHINE OPERATOR smoking, year quit [address] [facility] smoking history, tot al pack/day 1 1/2 Evangelina Ventimiglia [employer] BORING MACHINE OPERATOR cigarette use yes Evangelina Ventimi glia [employer]ING [employer] BORING MACHINE OPERATOR smoking status Former smoker Evangelina Lucila miglia [facility] personal history of marijuana use yes Evangelina Ventimiglia [employer]ING AND BORING MACHINE OPERATOR drug use no Evangelina Ventimig teddy [employer]ZING AND BORING MACHINE OPERATOR alcohol use no Evangelina Ventimig teddy [employer]ING AND BORING MACHINE OPERATOR smoking, year quit [address] [facility] smoking history, tot al pack/day 1 1/2 Evangelina Ventimiglia [employer]ING AND BORING MACHINE OPERATOR cigarette use yes Evangelina Ventimi glia [employer]ING AND BORING MACHINE OPERATOR smoking status Former smoker Evangelina Lucila miglia [facility] number of grandchildren Yolanda Celestin MD smoking, year quit 2022 Yolanda Celestin MD smoking history, tot al pack/day 1 1/2 Yolanda Celestin MD cigarette use yes Yolanda Celestin MD smoking status Former smoker Yolanda hendricks MD social history reviewed E&M revi ewed - no changes required Yolanda Celestin MD social history E&M Smoking Histo ry: Adam oneal is a former smoker. Yolanda Celestin MD social history reviewed E&M revi ewed - no changes required Yolanda Celestin MD social history E&M S moking History: Adam oneal is a former smoker. Yolanda Celestin MD smoking, year quit 2022 Candy Will iams smoking history, tot al pack/day 1 1/2 Candy Murphy cigarette use yes Candymikal Arrington smoking status Former smoker Candymikal harrison smoking, year quit 2022 Evangelina Ve ntimiglia [employer]ING AND BORING MACHINE OPERATOR smoking history, tot al pack/day 1 1/2 Evangelina Ventimiglia [employer]ING AND BORING MACHINE OPERATOR cigarette use yes Joel Olmos ay smoking status Former smoker Evangelina Venti miglia [facility] INSURANCE PROVIDERS Payer name Policy type / Coverage type [employer] party [facility] Medicaid [id number] ADVANCE DIRECTIVES Name Date DISCUSSED - NO DECISION MADE TREATMENT PLAN Date Name Performer [id number],C,No further ep isodes Yolanda Celestin MD [id number],C,C ontinues to experience intermittent CP. Pain is reproducable, pain with lifting arm amove head. C arotid US showed normal carotid duplex examination. ECHO was normal. H er last stress test showed no evidence of exercise-induced myocardial ischemia, but pt states she experienced a panic attack during the test and was unable to finish. W e have requested coronary CTA. We will send lidocaine patch Yolanda Celestin MD [id number],C,C ontinues on statin, aim for LDL less than 70 Her updated medication list for this problem includes: Atorvastatin 40 Mg Tablet (Atorvastatin) Yolanda Celestin MD [id number],C,P t states she has been having more seizures than usual since last visit Her updated medication list for this problem includes: Levetiracetam 500 Mg Tablet (Levetiracetam) Lacosamide 200 Mg Tablet (Lacosamide) Gabapentin 800 Mg Tablet (Gabapentin) Yolanda Celestin MD [id number],C,S tress test showed no evidence of exercise-induced myocardial ischemia, but pt states she experienced a panic attack during the test. Carotid US showed normal carotid duplex examination. ECHO was normal. She continues to experience intermittent CP. S he states she had panic attack during routine stress test. We will arrange for regadenoson stress test. Yolanda Celestin MD [id number],C,N o further episodes of syncope. Stress test showed no evidence of exercise-induced myocardial ischemia, but pt states she experienced a panic attack during the test. Carotid US showed normal carotid duplex examination. ECHO was normal. Yolanda Celestin MD [id number],C,N o recent occurrence Her updated medication list for this problem includes: Levetiracetam 500 Mg Tablet (Levetiracetam) Lacosamide 200 Mg Tablet (Lacosamide) Gabapentin 800 Mg Tablet (Gabapentin) Yolanda Celestin MD [id number],C, H er updated medication list for this problem includes: Atorvastatin 40 Mg Tablet (Atorvastatin) Yolanda Celestin MD [id number],S,quit 1 week a go Evangelina Ventimiglia [facility] [id number],C,pt denies rec ent seizure Evangelina Ventimiglia [facility] [id number],S,p er pt reports, etiology unclear s he does have known hx of seizures w ill plan tele monitor to rule out arrythmia I n SR today w ill plan carotids as well Evangelina Ventimiglia [facility] [id number],S,w ill obtain records from most recent hospital viist H er updated medication list for this problem includes: Atorvastatin 40 Mg Tablet (Atorvastatin) Evangelinamesha Mariano [facility] [id number],S,s omewhat atypical is constant in nature d oes have risk factor for CAD with HLD, tobacco abuse, multiple ER visits, and family hx w ill plan stress and echo for further eval [facility]iology:[facility]ation [facility] Cardiology [facility] Cardiology: H er updated medication list for this problem includes: Atorvastatin 40 Mg Tablet (Atorvastatin) ..... Take 1 tablet by mouth everyday at bedtime [facility] Cardiology:She has c ontinued chest pain with an unclear etiology W ill trial ranexa to see if helps with spasm C ardiac cath showed normal coronaries with normal EF of 60% H er updated medication list for this problem includes: Ranolazine 500 Mg Tablet Extended Release 12 Hr (Ranolazine) ..... Take 1 tablet by mouth twice daily [facility] Cardiology: C ontinues on atorvastatin. Yolanda Celestin MD Cardiology: A s above. Yolanda Celestin MD Cardiology: C /o left sided chest pain. Recent stress test was abnormal. Recommend cath for further evaluation. The risks and benefits of the procedure, including but not limited the risk of heart attack, , stroke, bleeding, kidney failure, and loss of limb as well as the alternative of continued medical therapy, stress testing or bypass surgery were discussed with the patient and any present family members and the patient wishes to proceed with cardiac cath and stenting. The patient and family had opportunity to discuss this with us. Written material including informed consent was given out. Yolanda Celestin MD Cardiology: N o recurrence. Yolanda Celestin MD Cardiology Yolanda Amaro Cardiology: C ontinues on atorvastatin. Yolanda Celestin MD Cardiology: C omplains of severe, left-sded, stabbing chest pain. Radiates to her back and shoulders. Occurs randomly both with minimal effort and at rest. Associated with SOB. Interferes with her capacity to sleep. Comes and goes and lasts up to hours. It resolves with rest. With these symptoms and mulitple risk factors for CAD including hyperlipidemia, and tobacco abuse, I am ordering a regadenoson stress test (the patient is not able to exercise - I had ordered a routine treadmill stress test last year and she was unable to stay on the treadmill long enough jayde reach target heart rate). Will also give her a lidocaine patch to see if this helps. Yolanda Celestin MD Cardiology:No further episodes M vidal Celestin MD Cardiology:Continues to experience intermittent CP. Pain is reproducable, pain with lifting arm amove head. C arotid US showed normal carotid duplex examination. ECHO was normal. H er last stress test showed no evidence of exercise-induced myocardial ischemia, but pt states she experienced a panic attack during the test and was unable to finish. W e have requested coronary CTA. We will send lidocaine patch Yolanda Celesitn MD Cardiology:Continues on statin, aim for LDL less than 70 Her updated medication list for this problem includes: Atorvastatin 40 Mg Tablet (Atorvastatin) Yolanda Celestin MD Cardiology:Pt states she has been having more seizures than usual since last visit Her updated medication list for this problem includes: Levetiracetam 500 Mg Tablet (Levetiracetam) Lacosamide 200 Mg Tablet (Lacosamide) Gabapentin 800 Mg Tablet (Gabapentin) Yolanda Celestin MD Cardiology:Stress te st showed no evidence of exercise-induced myocardial ischemia, but pt states she experienced a panic attack during the test. Carotid US showed normal carotid duplex examination. ECHO was normal. She continues to experience intermittent CP. S he states she had panic attack during routine stress test. We will arrange for regadenoson stress test. Yolanda Celestin MD Cardiology:No furthe r episodes of syncope. Stress test showed no evidence of exercise-induced myocardial ischemia, but pt states she experienced a panic attack during the test. Carotid US showed normal carotid duplex examination. ECHO was normal. Yolanda Celestin MD Cardiology:No recent occurrence Her updated medication list for this problem includes: Levetiracetam 500 Mg Tablet (Levetiracetam) Lacosamide 200 Mg Tablet (Lacosamide) Gabapentin 800 Mg Tablet (Gabapentin) Yolanda Celestin MD Cardiology: H er updated medication list for this problem includes: Atorvastatin 40 Mg Tablet (Atorvastatin) Yolanda Celestin MD Cardiology:quit 1 week ago Amestefanía ren Lucilamicarlyia [facility] Cardiology:pt denies recent seiz ure Evangelina Ventimiglia [facility] Cardiology:per pt re ports, etiology unclear s he does have known hx of seizures w ill plan tele monitor to rule out arrythmia I n SR today w ill plan carotids as well Evangelina Lucilamiglia [facility] Cardiology:will obta in records from most recent hospital viist H er updated medication list for this problem includes: Atorvastatin 40 Mg Tablet (Atorvastatin) Evangelina Ventimiglia [facility] Cardiology:somewhat atypical is constant in nature d oes have risk factor for CAD with HLD, tobacco abuse, multiple ER visits, and family hx w ill plan stress and echo for further eval Evangelinamesha Gaytanmiglia [facility] Date Name Stress Regadenoson Echo with Bubbles CT Angio Coronaries Stress Regadenoson Stress Routine Monitor - Telemetry (Mobile Cardiac) Carotid Duplex Bilat eral Complete Echo HISTORY OF PROCEDURES Procedure Date Procedure Name Provider Procedure Notes S tatus Complex e/m visit add on Yolanda Celestin MD completed EKG Yolanda Celestin MD complet ed EKG Yolanda Celestin MD complet ed EKG Yolanda Celestin MD complet ed EKG Yolanda Celestin MD complet ed
--- OUTSIDE RECORDS SUMMARY | 2025-04-20 12:06 | XMS_ITS | Clinical Summary ---
Author Organization [facility] Address [address] [place] [address] Care Team Providers Care Modeling Agent Name Role Phone Aravind Menendez APRN-LAW LIBRARIAN Primary Care Provide r Source Comments [facility] [employer],non-owned Affiliates and Associated Physician Practices is amultiple site organization consisting of ambulatory clinics and [place]in [place] and [place]. This disclosure is being madepursuant to the Care Everywhere program and may not contain all information available regarding this patient. Last updated 18.[facility] [employer] Allergies Active Allergy Reactions Criticality Noted Date Comments Flu Virus Vaccine Unknown 08/26/2019 Hydrocodone Urticaria,Nausea and/or Vomiting Medium Oxycodone Urticaria,Nausea and/or Vomiting Medium Skin Adhesives Rash Medium 05/10/2024 Sulfa Drugs Unknown 08/26/2019 Medications * Be aware that medications may not be up to date on this document. Alwaysverify current medications with the patient. traZODone (Desyrel) 100 MG tablet Take 2 (two) tablets by mouth at bedtime Active ARIPiprazole (Abilify) 20 MG tablet Take 1 (one) tablet by mouth at bedtime 1 Active lacosamide (VIMPAT) 200 MG tablet Take 1 (one) tablet by mouth 2 times daily 0 Active atorvastatin (LIPITOR) 40 MG tablet Take 1 (one) tablet by mouth once daily 1 Active gabapentin (NEURONTIN) 800 MG tablet Take 1 (one) tablet by mouth 3 times daily 1 Active pramipexole (Mirapex) 0.25 MG tablet Take 1 (one) tablet by mouth at bedtime Active Levothyroxine Sodium 100 MCG/ML SOLN Take 100 mcg by mouth once daily 4 Active aspirin (Aspirin) 81 MG chew tablet Take 1 (one) tablet by mouth once daily Active PATIENT SUPPLIED MEDICATION Take 1 tablet by mouth every afternoon B Complex Active levETIRAcetam (Keppra) 500 MG tablet Take 2 (two) tablets by mouth 2 times daily 180 tablet 5 4 Active Active Problems Problem Noted Date Diagnosed Date Seizures 02/27/2024 Social History Tobacco Use Types Packs/Day Years Used Date Smoking Tobacco: Every Day Cigarettes Smokeless Tobacco: Never Tobacco Cessation:Ready to Q uit: No; Counseling Given: Yes Alcohol Use Standard Drinks/Week Comments Yes 0 (1 standard drink = 0.6 oz pur e alcohol) rarely AUDIT-C Answer Date Recorded Q1: How often do you have a drink containing alcohol? Never 07/05/2024 Q2: How many drinks containi ng alcohol do you have on a typical day when you are drinking? Patient does not drink 4 Q3: How often do you have si x or more drinks on one occasion? Never 07/05/2024 Overall Financial Resource Strain (CARDIA) Answe r Date Recorded How hard is it for you to pa y for the very basics like food, housing, medical care, and heating? Not very hard 07/07/2024 [facility] - Occupational Stress Questionnaire Answer Date Recorded Do you feel stress - tense, restless, nervous, or anxious, or unable to sleep at night because your mind is troubled all the time - these days? Only a little 07/07/2024 Hunger Vital Sign Answer Date Recorded Within the past 12 months, y ou worried that your food would run out before you got the money to buy more. Never true 07/07/20 24 Within the past 12 months, t he food you bought just didn't last and you didn't have money to get more. Never true 07/07/2024 PRAPARE - Transportation Answer Date Re corded In the past 12 months, has l ack of transportation kept you from medical appointments or from getting medications? No 06/24 In the past 12 months, has l ack of transportation kept you from meetings, work, or from getting things needed for daily living? No 07/07/2024 Housing Stability Vital Sign Answer Daniel e Recorded In the last 12 months, was t here a time when you were not able to pay the mortgage or rent on time? No 07/07/2024 In the last 12 months, how many places have you lived? 1 07/07/2024 In the last 12 months, was t here a time when you did not have a steady place to sleep or slept in a correction (including now)? No 07/07/2024 Comments Unknown Sex and Gender Information Value Date Recorded Sex Assigned at Not on file Legal Sex Female 9:50 AM CDT Gender Identity Not on file Sexual Orientation Not on file Last Filed Vital Signs Vital Sign Reading Time Taken Comments Blood Pressure 110/58 07/09/2024 7:49 AM CDT Pulse 59 07/09/2024 7:49 AM CDT Temperature 37.1 C (98.8 F) 07/09/2024 7:49 AM CDT Respiratory Rate 16 07/08/2024 8:05 AM CDT Oxygen Saturation 100% 07/09/2024 7:49 AM CDT Inhaled Oxygen Concentration - - Weight 65.3 kg (143 lb 15.4 oz) 024 11:23 AM CDT Height 154.9 cm (5' 0.98) 07/05/2024 1 1:23 AM CDT Body Mass Index 27.22 07/05/2024 11:23 AM CDT Plan of Treatment Upcoming Encounters Date Type Department Care Team (Late st Contact Info) Description 06/14/2025 11:00 AM CDT Office Visit [facility] - Neurology [address] [place] [phone] Isela Robison APRN-LAW LIBRARIAN [address] [place] [id number] Health Maintenance Due Date Last Done Comments COLOGUARD (AGES 45-75) - COLON CA SCREENING 1974 COLON MONITORING 1974 COLONOSCOPY - COLON CA SCREENING 1974 CT COLONOGRAPHY - COLON CA SCREENING 1974 Colorectal Cancer Screening 1974 FIT - COLON CA SCREENING 1974 FLEX SIG - COLON CA SCREENING 1974 MAMMOGRAM 1974 HIV SCREENING 1989 HEPATITIS C SCREENING 08/17/1992 DTAP/TDAP/TD VACCINES (1 - Tdap) 1993 HEPATITIS B VACCINE (1 of 3 - 19+ 3-dose series) 1993 PNEUMOCOCCAL VACCINE 50+ (1 of 2 - PCV) 1993 PAP SMEAR 02/17/2010 02/17/2007 COVID-19 VACCINE (1 - 2023- season) 2024 ZOSTER VACCINE (1 of 2) 2024 DEPRESSION SCREENING 11/24/2024 SCREENING FOR DIABETES 07/07/2027 , 07/05/2024, 05/10/2024, Additional history exists HIB VACCINE Aged Out No longer eligi ble based on patient's age to complete this topic HPV VACCINE Aged Out No longer eligi ble based on patient's age to complete this topic MENINGOCOCCAL (Group B) VACCINE SHARED DECISION-MAKING Aged Out No longer eligible based on patient's age to complete this topic MENINGOCOCCAL GROUPS A/C/Y/W VACCINE Aged Out No longer eligible based on patient's age to complete this topic Procedures Procedure Name Priority Date/Time Associated Diagnosis Comments BASIC METABOLIC PANEL (CALCIUM TOTAL) STAT 07/07/2024 12:33 AM CDT from Last 3 Months or Most Recently Relevant to Health Maintenance Results * (ABNORMAL) BASIC METABOLIC PANEL (CALCIUM TOTAL) (07/07/2024 12:33 AM CDT) BUN 15 7 - 26 mg/dL 07/07/2024 1:16 AM CDT [facility] Creatinine 0.92 0.56 - 0.96 mg/dL 07/07/2024 1:16 AM CDT [facility] Sodium 142 136 - 145 mmol/L 07/07/2024 1:16 AM CDT [facility] Potassium 3.4(L) 3.5 - 4.5 mmol/L 07/07/2024 1:16 AM [facility] Chloride 111(H) 98 - 107 mmol/L 07/07/2024 1:16 AM [facility] CO2 24 22 - 29 mmol/L 07/07/2024 1:16 AM [facility] Glucose 93 70 - 115 mg/dL 07/07/2024 1:16 AM [facility] Calcium 8.5 8.4 - 10.2 mg/dL 07/07/2024 1:16 AM [facility] Anion Gap 7 6 - 16 07/07/2024 1:16 AM [facility] BUN/Creatinine Ratio 16 7 - 23 07/07/2024 1:16 AM [facility] Osmolality Calculated 295 275 - 295 mOsm/kg 07/07/2024 1:16 AM [facility] eGFR by CKD-EPI 76(L) >=90 mL/min/1.7 3 m2 07/07/2024 1:16 AM [facility] Blood BLOOD SPECIMEN / Unknown Venipuncture / Unknown 07/07/2024 12:33 AM CDT 07/07/2024 12:46 AM T us Miguel A Simpson DO LAB - CHEMISTRY ORDERABLES Fin al Result Performing Organization Address City/State/[facility] Co de Phone Number [facility] [address] [place] [address], [facility] [phone] from Last 3 Months or Most Recently Relevant to Health Maintenance Insurance [facility] * Guarantor: HIMANSHU YOUNG Account Type Relation to Patient Date of Phone Billing Address Personal/Family Spouse Advance Directives * Full Code (Latest Code Status on File) Date Activated Date Inactivated Comments 07/05/2024 11:12 AM 07/09/2024 12:50 PM * Full Code Date Activated Date Inactivated Comments 05/10/2024 10:40 AM 05/11/2024 1:47 PM * Full Code Date Activated Date Inactivated Comments 03/01/2024 11:30 AM 03/07/2024 1:13 PM Care Teams Modeling Agent Relationship Specialty Start Date End Date Aravind Menendez, PLODDER OPERATOR-LAW LIBRARIAN [address] [place] [address] (work) PCP - General 06/07/21
--- OUTSIDE RECORDS SUMMARY | 2025-04-20 12:06 | XMS_ITS | Referral Summary ---
Author Organization [facility] Address [address] [place] [address] Care Team Providers Care Supervisor White Sugar Name Role Phone Aravind Menendez NP Primary Care Provider [phone] Allergies Active Allergy Reactions Criticality Noted Date [...] original. Ear cleaning No known active problems Social History Tobacco Use Types Packs/Day Years [...] 07/08/2023 10:09 AM CDT Plan of Treatment Not on file Goals Goal Patient Goal Type Associated Problems Recent Progress Patient-Stated? Author CCM Chronic Pain Care Plan Chronic Care Management Gracie Wilkins, RN Note: Problem: Chronic Pain Goals: 1. Minimize further functional decline 2. Maximize quality of life 3. Control pain Strategies: - Activity/exercise program recommendation - Conservative stepwise pain medicine strategy with multi-disciplinary approach - Recommend healthy lifestyle strategies and compensatory methods as needed Insurance [facility] Care Teams Supervisor White Sugar Relationship Specialty Start Date End Date Aravind Menendez NP [address] [place] [address] [place] [address] PCP - General Pain Management 12/06/22
[2025-04-20 12:44] LABS: Basophils Absolute Auto 0.1 K/mm3 (0.0-0.1); Basophils Percent Auto 0.8 % (0.2-1.2); Eosinophils Percent Auto 0.1 % (0-4.4); Hematocrit 41.3 % (37.0-47.0); Hemoglobin 14.1 g/dL (12.0-15.0); Immature Granulocyte Absolute 0.03 K/mm3 (0.00-0.031); Immature Granulocyte Percent A 0.3 % (0-0.5); Lymphocytes Percent Auto 28.9 % (18.3-44.2); Mean Corpuscular HGB Conc 34.1 g/dl (32-36); Mean Corpuscular Hemoglobin 31.6 pg (26-34); Mean Corpuscular Volume 92.6 fl (80-100); Mean Platelet Volume 10.3 fl (7.4-10.4); Monocytes Absolute Auto 0.5 K/mm3 (0.1-0.6); Monocytes Percent Auto 5.6 % (2.6-8.5); Neutrophils Absolute Auto 5.8 K/mm3 (1.3-6.7); Neutrophils Percent Auto 64.3 % (45.5-73.1); Platelet Count Result 247 k/mm3 (150-375); Red Blood Count 4.46 M/mm3 (4.2-5.4); Red Cell Distribution Width 12.3 % (11.5-14.5)
[2025-04-20 12:53] LABS: Alanine Aminotransferase 51 U/L (6-35); Albumin Level 4.5 g/dL (3.5-5.1); Alkaline Phosphatase 91 U/L (38-126); Anion Gap 6 mmol/L (4-12); Aspartate Amino Transferase 43 U/L (14-36); Bilirubin,Total 0.5 mg/dL (0.2-1.3); Blood Urea Nitrogen 9 mg/dL (7-17); Calcium 9.9 mg/dL (8.4-10.2); Carbon Dioxide 29 mmol/L (22-30); Chloride 106 mmol/L (98-107); Estimated CRCL calculation 63 ml/min; Estimated Glomerular Filt Rate > 60; Glucose 87 mg/dL (65-110); Lipase 69 U/L (23-300); Potassium 3.8 mmol/L (3.4-5.0); Sodium 141 mmol/L (137-145)
[2025-04-20 12:54] LABS: Partial Thromboplastin Time 25.9 Seconds (22.3-36.8)
[2025-04-20 13:05] LABS: Troponin I < 0.012 ng/mL (0.000-0.034)
--- NOTE | 2025-04-20 14:15 | ED.CHESTPAIN ---
HPI - Chest Pain General Chief Complaint: Chest Pain <Cande Linares PA-C - Last Filed: 04/20/25 18:44> Stated Complaint: Chest pain since this AM 06/02 <Cande Linares PA-C - Last Filed: 04/20/25 18:44> Time Seen by Provider: 04/20/25 14:16 <Cande Linares PA-C - Last Filed: 04/20/25 18:44> Focused HPI: This is a 49 year old female that presents to the ER for chest pain, shortness of breath. Ongoing since this morning. Reports the pain is sharp in nature. No previous history of CAD. She is a smoker. Reports family history of CAD. Reports her last stress test was 11/16. GENERAL: Well-appearing, well-nourished, and in no acute distress. HEAD: Normocephalic, atraumatic. CHEST: Clear to auscultation. ?No respiratory distress. HEART: Regular rate and rhythm.? NEURO: ?Alert and oriented x3. Patient screened in triage and initial orders placed.? ?Additional care and disposition to be based upon?diagnostic testing and treatment. <Cande Linares PA-C - Last Filed: 04/20/25 18:44> History of Present Illness HPI narrative: 49-year-old female presenting with sharp right-sided chest pain. Pain started 9:00 a.m. while she was waking up. It radiates from the right side of her chest to her left arm. She has been having pain like this for the last several months although before it was on the left side of her chest. She has seen a mattress finisher but has not completed the workup as the Holter monitor would not stick. She did not follow-up with a mattress finisher after that to find out another option. She has not taken anything for pain control. Pain is worse with movement. <Roberto Patricia MD - Last Filed: 04/20/25 18:27> Related Data Home Medications: Home Medications ?Medication ?Instructions ?Recorded ?Confirmed ?Last Taken ?Type aripiprazole 20 mg tablet 20 mg PO DAILY 07/21/23 02/23/25 Unknown History levothyroxine 100 mcg tablet 100 mcg PO DAILY 07/21/23 02/23/25 Unknown History pramipexole 0.25 mg tablet 0.25 mg PO DAILY 07/21/23 02/23/25 Unknown History escitalopram oxalate 10 mg tablet 10 mg PO DAILY 02/04/24 02/23/25 Unknown History (Lexapro) topiramate 50 mg tablet 50 mg PO BID 02/23/25 02/23/25 Unknown History <Cande Linares PA-C - Last Filed: 04/20/25 18:44> Allergies/Adverse Reactions: Allergies Allergy/AdvReac Type Severity Reaction Status Date / Time adhesive Allergy Severe blisters Verified 04/20/25 12:14 Influenza Virus Vaccines Allergy Severe Anaphylaxis Verified 04/20/25 12:14 Sulfa (Sulfonamide Allergy Severe Anaphylaxis Verified 04/20/25 12:14 Antibiotics) hydrocodone Allergy Intermediate Rash Verified 04/20/25 12:14 oxycodone Allergy Intermediate Rash Verified 04/20/25 12:14 pine tree Allergy Intermediate Rash Uncoded 04/20/25 12:14 <Cande Linares PA-C - Last Filed: 04/20/25 18:44> Review of Systems Review of Systems: All systems reviewed & are unremarkable except as noted in HPI and below <Cande Linares PA-C - Last Filed: 04/20/25 18:44> [facility] Past Medical History Medical History: Medical History Adenomatous colon polyp Bloating Cerebrovascular accident With resultant memory loss. Tobacco dependence Seizure disorder Gastroesophageal reflux disease Posttraumatic stress disorder Dyslipidemia Acquired hypothyroidism Post-ablative hypothyroidism. Uterine cancer Status post hysterectomy and bilateral salpingo-oophorectomy. Hiatal hernia Neuropathy Colon cancer Status post polypectomy with oral chemotherapy and radiation. Stroke Insomnia Depression Bipolar disorder Graves disease Status post radioactive iodine ablation at the age of 15. Restless leg syndrome Fibromyalgia <NORMA Nolen Last Filed: 04/20/25 18:44> Surgical History Surgical History: Surgical History History of colonoscopy with polypectomy History of total abdominal hysterectomy and bilateral salpingo-oophorectomy History of Deanna fundoplication (~02/22/21) History of elbow surgery Left. History of neck surgery Diskectomy and fusion. History of appendectomy History of cholecystectomy <Cande Linares PA-C - Last Filed: 04/20/25 18:44> Family History Family History: Family History Sibling Carcinoma of colon Grandparent Acute myocardial infarction Other Family history of arthritis Family history of malignant neoplasm <Cande Linares PA-C - Last Filed: 04/20/25 18:44> Social History Social History: Social History Social History: Surrogate decision maker: Jennifer Lael, mother. Code status: Full code. Smoking packs per day: 1 Smoking cigarettes per day: 20.0 Years smoked: 30 Smoking pack-years: 30.00 Smoking status: Current every day smoker Tobacco type: cigarettes Alcohol intake: never Alcohol use details: rare Substance use: current Substance use type: marijuana Other substance usage details: 2 X WEEK Last use: 02/21/21 Do You Feel Safe in your Home?: Yes Lack of Transportation: YES Lack of Food: Sometimes True Current Housing: I Have Housing Concerned About Future Housing: No Difficulty Paying Gas/Electric Bills: No Difficulty Paying for Meds: No Currently Unemployed: No Education: Associate Degree Difficulty w/ Childcare or Family Care: No Living arrangements: with family Additional living arrangements comments: The patient lives alone in [place]. She has 2 grown sons. She has cats and dogs at home. A supervisor burling and joining comes 4 hours a day, 7 days a week. Occupation/Education: unemployed Additional occupation/education comments: Unemployed. Trying to get disability. Gender identity (if verbalized by the patient): Female Spiritual care concerns: No <Cande Linares PA-C - Last Filed: 04/20/25 18:44> Exam Narrative: APPEARANCE: No apparent distress. Head: atraumatic. EYES: EOMI, NOSE: Atraumatic NECK: Trachea midline RESPIRATORY: No increased rate of breathing clear auscultation CARDIOVASCULAR: RRR, ABDOMINAL: Non-distended MUSCULOSKELETAl: No obvious deformities, chest pain is reproducible w/ the crowing rooster rooster maneuver NEURO: Alert. Moving 4/4 extremities SKIN:: Warm, dry. Normal color PSYCHIATRIC: Normal affect <Roberto Patricia MD - Last Filed: 04/20/25 18:27> Course Vital Signs Vital signs: Vital Signs Temperature 97.2 F L 04/20/25 12:12 Pulse Rate 71 04/20/25 12:12 Respiratory Rate 16 04/20/25 12:12 Blood Pressure 132/82 04/20/25 12:12 Pulse Oximetry 97 04/20/25 12:12 Temperature 98.5 F 04/20/25 18:37 Pulse Rate 51 L 04/20/25 18:37 Respiratory Rate 18 04/20/25 18:37 Blood Pressure 114/55 L 04/20/25 18:37 Pulse Oximetry 98 04/20/25 18:37 Oxygen Delivery Room Air 04/20/25 15:27 <Cande Linares PA-C - Last Filed: 04/20/25 18:44> Vital Signs Temperature 97.2 F L 04/20/25 12:12 Pulse Rate 71 04/20/25 12:12 Respiratory Rate 16 04/20/25 12:12 Blood Pressure 132/82 04/20/25 12:12 Pulse Oximetry 97 04/20/25 12:12 Temperature 98.5 F 04/20/25 18:37 Pulse Rate 51 L 04/20/25 18:37 Respiratory Rate 18 04/20/25 18:37 Blood Pressure 114/55 L 04/20/25 18:37 Pulse Oximetry 98 04/20/25 18:37 Oxygen Delivery Room Air 04/20/25 15:27 <Roberto Patricia MD - Last Filed: 04/20/25 18:27> MDM - Chest Pain MDM Narrative Medical decision making narrative: -Course: 49-year-old female presenting with 2-3 months of chest pain. It is typically on the left but today presented on the right. Her vital signs are stable. Her workup including troponin x2, EKG, chest x-ray, D-dimer, and BNP were all within normal limits. Pain is reproducible w/ the crowing rooster maneuver and palpation of the chest. Results were discussed with the patient she is comfortable following up with mattress finisher. She can return to ED if she develops any new or worsening symptoms. -DDX includes but is not limited to: Chest wall pain, costochondritis, ACS pneumonia PE viral syndrome Independent EKG interpretation: Rhythm [sinus], Rate [57], [place] -[normal], SD -[normal], QRS [narrow], QTC [normal], T waves -[negative for concerning inversions], ST Segments - [Negative for concerning elevations] Final interpretations: [Normal Sinus Rhythm] <Roberto Patricia MD - Last Filed: 04/20/25 18:27> Lab Data Result diagrams: 04/20/25 12:29 04/20/25 12:29 <Cande Linares PA-C - Last Filed: 04/20/25 18:44> Labs: Lab Results 04/20/25 04/20/25 04/20/25 Range/Units 12:29 15:48 15:48 WBC 9.0 (4.5-10.0) K/mm3 RBC 4.46 (4.2-5.4) M/mm3 Hgb 14.1 (12.0-15.0) g/dL Hct 41.3 (37.0-47.0) % MCV 92.6 (80-100) fl MCH 31.6 (26-34) pg MCHC 34.1 (32-36) g/dl RDW 12.3 (11.5-14.5) % Plt Count 247 (150-375) k/mm3 MPV 10.3 (7.4-10.4) fl Immature Gran % (Auto) 0.3 (0-0.5) % Neut % (Auto) 64.3 (45.5-73.1) % Lymph % (Auto) 28.9 (18.3-44.2) % [place] % (Auto) 5.6 (2.6-8.5) % Eos % (Auto) 0.1 (0-4.4) % Baso % (Auto) 0.8 (0.2-1.2) % Lymph # (Auto) 2.60 (0.9-3.2) K/mm3 [place] # (Auto) 0.5 (0.1-0.6) K/mm3 Eos # (Auto) 0.0 (0-0.3) K/mm3 Baso # (Auto) 0.1 (0.0-0.1) K/mm3 Abs Immat Gran (auto) 0.03 (0.00-0.031) K/mm3 Absolute Neuts (auto) 5.8 (1.3-6.7) K/mm3 Absolute Nucleated RBC 0.000 (0.0-0.012) K/mm3 Nucleated RBC % 0.0 (0.0-0.2) % PT 13.0 (11.1-14.7) Seconds INR 1.0 APTT 25.9 (22.3-36.8) Seconds D-Dimer < 0.27 (<0.48) ug/mL Sodium 141 (137-145) mmol/L Potassium 3.8 (3.4-5.0) mmol/L Chloride 106 (98-107) mmol/L Carbon Dioxide 29 (22-30) mmol/L Anion Gap 6 (4-12) mmol/L BUN 9 (7-17) mg/dL Creatinine 0.82 (0.7-1.0) mg/dL Estim Creat Clear Calc 63 ml/min Estimated GFR > 60 (59 - ) Glucose 87 (65-110) mg/dL Calcium 9.9 (8.4-10.2) mg/dL Total Bilirubin 0.5 (0.2-1.3) mg/dL AST 43 H (14-36) U/L ALT 51 H (6-35) U/L Alkaline Phosphatase 91 (38-126) U/L Troponin I < 0.012 < 0.012 (0.000-0.034) ng/mL NT-Pro-B Natriuret Pep Cancelled < 20 Total Protein 8.0 (6.3-8.2) g/dL Albumin 4.5 (3.5-5.1) g/dL Lipase 69 (23-300) U/L Influenza A (RT-PCR) (Negative) Influenza B (RT-PCR) (Negative) RSV (RT-PCR) (Negative) SARS-CoV-2 RNA (RT-PCR) (Negative) 04/20/25 Range/Units 16:33 WBC (4.5-10.0) K/mm3 RBC (4.2-5.4) M/mm3 Hgb (12.0-15.0) g/dL Hct (37.0-47.0) % MCV (80-100) fl MCH (26-34) pg MCHC (32-36) g/dl RDW (11.5-14.5) % Plt Count (150-375) k/mm3 MPV (7.4-10.4) fl Immature Gran % (Auto) (0-0.5) % Neut % (Auto) (45.5-73.1) % Lymph % (Auto) (18.3-44.2) % [place] % (Auto) (2.6-8.5) % Eos % (Auto) (0-4.4) % Baso % (Auto) (0.2-1.2) % Lymph # (Auto) (0.9-3.2) K/mm3 [place] # (Auto) (0.1-0.6) K/mm3 Eos # (Auto) (0-0.3) K/mm3 Baso # (Auto) (0.0-0.1) K/mm3 Abs Immat Gran (auto) (0.00-0.031) K/mm3 Absolute Neuts (auto) (1.3-6.7) K/mm3 Absolute Nucleated RBC (0.0-0.012) K/mm3 Nucleated RBC % (0.0-0.2) % PT (11.1-14.7) Seconds INR APTT (22.3-36.8) Seconds D-Dimer (<0.48) ug/mL Sodium (137-145) mmol/L Potassium (3.4-5.0) mmol/L Chloride (98-107) mmol/L Carbon Dioxide (22-30) mmol/L Anion Gap (4-12) mmol/L BUN (7-17) mg/dL Creatinine (0.7-1.0) mg/dL Estim Creat Clear Calc ml/min Estimated GFR (59 - ) Glucose (65-110) mg/dL Calcium (8.4-10.2) mg/dL Total Bilirubin (0.2-1.3) mg/dL AST (14-36) U/L ALT (6-35) U/L Alkaline Phosphatase (38-126) U/L Troponin I (0.000-0.034) ng/mL NT-Pro-B Natriuret Pep Total Protein (6.3-8.2) g/dL Albumin (3.5-5.1) g/dL Lipase (23-300) U/L Influenza A (RT-PCR) Negative (Negative) Influenza B (RT-PCR) Negative (Negative) RSV (RT-PCR) Negative (Negative) SARS-CoV-2 RNA (RT-PCR) Negative (Negative) <Cande Linares PA-C - Last Filed: 04/20/25 18:44> Lab Results 04/20/25 04/20/25 04/20/25 Range/Units 12:29 15:48 15:48 WBC 9.0 (4.5-10.0) K/mm3 RBC 4.46 (4.2-5.4) M/mm3 Hgb 14.1 (12.0-15.0) g/dL Hct 41.3 (37.0-47.0) % MCV 92.6 (80-100) fl MCH 31.6 (26-34) pg MCHC 34.1 (32-36) g/dl RDW 12.3 (11.5-14.5) % Plt Count 247 (150-375) k/mm3 MPV 10.3 (7.4-10.4) fl Immature Gran % (Auto) 0.3 (0-0.5) % Neut % (Auto) 64.3 (45.5-73.1) % Lymph % (Auto) 28.9 (18.3-44.2) % [place] % (Auto) 5.6 (2.6-8.5) % Eos % (Auto) 0.1 (0-4.4) % Baso % (Auto) 0.8 (0.2-1.2) % Lymph # (Auto) 2.60 (0.9-3.2) K/mm3 [place] # (Auto) 0.5 (0.1-0.6) K/mm3 Eos # (Auto) 0.0 (0-0.3) K/mm3 Baso # (Auto) 0.1 (0.0-0.1) K/mm3 Abs Immat Gran (auto) 0.03 (0.00-0.031) K/mm3 Absolute Neuts (auto) 5.8 (1.3-6.7) K/mm3 Absolute Nucleated RBC 0.000 (0.0-0.012) K/mm3 Nucleated RBC % 0.0 (0.0-0.2) % PT 13.0 (11.1-14.7) Seconds INR 1.0 APTT 25.9 (22.3-36.8) Seconds D-Dimer < 0.27 (<0.48) ug/mL Sodium 141 (137-145) mmol/L Potassium 3.8 (3.4-5.0) mmol/L Chloride 106 (98-107) mmol/L Carbon Dioxide 29 (22-30) mmol/L Anion Gap 6 (4-12) mmol/L BUN 9 (7-17) mg/dL Creatinine 0.82 (0.7-1.0) mg/dL Estim Creat Clear Calc 63 ml/min Estimated GFR > 60 (59 - ) Glucose 87 (65-110) mg/dL Calcium 9.9 (8.4-10.2) mg/dL Total Bilirubin 0.5 (0.2-1.3) mg/dL AST 43 H (14-36) U/L ALT 51 H (6-35) U/L Alkaline Phosphatase 91 (38-126) U/L Troponin I < 0.012 < 0.012 (0.000-0.034) ng/mL NT-Pro-B Natriuret Pep Cancelled < 20 Total Protein 8.0 (6.3-8.2) g/dL Albumin 4.5 (3.5-5.1) g/dL Lipase 69 (23-300) U/L Influenza A (RT-PCR) (Negative) Influenza B (RT-PCR) (Negative) RSV (RT-PCR) (Negative) SARS-CoV-2 RNA (RT-PCR) (Negative) 04/20/25 Range/Units 16:33 WBC (4.5-10.0) K/mm3 RBC (4.2-5.4) M/mm3 Hgb (12.0-15.0) g/dL Hct (37.0-47.0) % MCV (80-100) fl MCH (26-34) pg MCHC (32-36) g/dl RDW (11.5-14.5) % Plt Count (150-375) k/mm3 MPV (7.4-10.4) fl Immature Gran % (Auto) (0-0.5) % Neut % (Auto) (45.5-73.1) % Lymph % (Auto) (18.3-44.2) % [place] % (Auto) (2.6-8.5) % Eos % (Auto) (0-4.4) % Baso % (Auto) (0.2-1.2) % Lymph # (Auto) (0.9-3.2) K/mm3 [place] # (Auto) (0.1-0.6) K/mm3 Eos # (Auto) (0-0.3) K/mm3 Baso # (Auto) (0.0-0.1) K/mm3 Abs Immat Gran (auto) (0.00-0.031) K/mm3 Absolute Neuts (auto) (1.3-6.7) K/mm3 Absolute Nucleated RBC (0.0-0.012) K/mm3 Nucleated RBC % (0.0-0.2) % PT (11.1-14.7) Seconds INR APTT (22.3-36.8) Seconds D-Dimer (<0.48) ug/mL Sodium (137-145) mmol/L Potassium (3.4-5.0) mmol/L Chloride (98-107) mmol/L Carbon Dioxide (22-30) mmol/L Anion Gap (4-12) mmol/L BUN (7-17) mg/dL Creatinine (0.7-1.0) mg/dL Estim Creat Clear Calc ml/min Estimated GFR (59 - ) Glucose (65-110) mg/dL Calcium (8.4-10.2) mg/dL Total Bilirubin (0.2-1.3) mg/dL AST (14-36) U/L ALT (6-35) U/L Alkaline Phosphatase (38-126) U/L Troponin I (0.000-0.034) ng/mL NT-Pro-B Natriuret Pep Total Protein (6.3-8.2) g/dL Albumin (3.5-5.1) g/dL Lipase (23-300) U/L Influenza A (RT-PCR) Negative (Negative) Influenza B (RT-PCR) Negative (Negative) RSV (RT-PCR) Negative (Negative) SARS-CoV-2 RNA (RT-PCR) Negative (Negative) <Roberto Patricia MD - Last Filed: 04/20/25 18:27> Critical Care Time Critical Care Time Critical Care Time: No <NORMA Nolen Last Filed: 04/20/25 18:44> Discharge Plan Discharge Clinical Impression: Atypical chest pain <NORMA Nolen Last Filed: 04/20/25 18:44> Patient Disposition: Home <NORMA Nolen Last Filed: 04/20/25 18:44> Condition: Stable <NORMA Nolen Last Filed: 04/20/25 18:44> Instructions: Antibiotic Form, Chest Pain (DC) <NORMA Nolen Last Filed: 04/20/25 18:44> Additional Instructions: You were seen in the emergency department for chest pain. Thankfully your workup here was negative. Please follow-up with your mattress finisher for further management. If you develop any new or worsening symptoms please return to ED for re-evaluation. <NORMA Nolen Last Filed: 04/20/25 18:44> Patient Language: [place] Citizen <NORMA Nolen Last Filed: 04/20/25 18:44> Prescriptions: No Action escitalopram oxalate [Lexapro] 10 mg tablet 10 mg PO DAILY levetiracetam [Keppra] 500 mg tablet See Rx Instructions .ROUTE .COMPLEX Qty: 180 3RF Patient Comments: HAS NOT STARTED Rx Instructions: Take 3 tablets in the morning and 3 tablets at bedtime. topiramate 50 mg tablet 50 mg PO BID amlodipine 2.5 mg tablet 2.5 mg PO DAILY Qty: 90 2RF levothyroxine 100 mcg tablet 100 mcg PO DAILY pramipexole 0.25 mg tablet 0.25 mg PO DAILY aripiprazole 20 mg tablet 20 mg PO DAILY atorvastatin 40 mg tablet 40 mg PO DAILY Qty: 30 1RF trazodone 100 mg tablet 100 mg PO HS Qty: 30 1RF gabapentin 800 mg tablet 800 mg PO TID Qty: 90 1RF lacosamide [Vimpat] 200 mg tablet 200 mg PO Q12H Qty: 180 1RF <NORMA Nolen Last Filed: 04/20/25 18:44> Follow-up/Referrals: Aníbal Chew MD [Primary Care Provider] - <Cande Linares PA-C - Last Filed: 04/20/25 18:44>
--- OUTSIDE RECORDS SUMMARY | 2025-04-20 14:51 | XMS_ITS | Clinical Summary ---
Author Organization [facility] Address [address] [place] [address] Phone Care Team Providers Care Plant Electrical Engineer Name Role Phone Corbin Romero BOAT RENTAL CLERK, GUIDE SETTER Primary Care Provide r Allergies Active Allergy [...] Insurance MEDICAID [employer] Care Teams Plant Electrical Engineer Relationship Specialty Start Date End Date Corbin Romero, BOAT RENTAL CLERK, GUIDE SETTER [address] [place] [address] PCP - General Advanced Practice Nurse 09/14/19
--- OUTSIDE RECORDS SUMMARY | 2025-04-20 14:51 | XMS_ITS | CONTINUITY OF CARE DOCUMENT ---
Author Name mike mckeon Address Unknown Organization [facility] Address [address] [place] [address] Phone [phone] Care Team Providers Care Studio Set Up Worker Name Role Phone Fawad CONWAY, Yolanda Unavailable SULY TRAVIS NP Unavailable [phone] ANGY MILLER, SULY Unavailable PROBLEMS Condition Status Date Provider Notes Abnormal nuclear stress test active Juan Celestin MD Tiredness and Fatigue active Yolanda Celestin MD Cardiology examination active Yolanda kimble MD Tobacco abuse active Evangelina Ventimiglia BUS AND RAIL OPERATOR Syncope active Evangelina Ventimiglia BUS AND RAIL OPERATOR Chest pain active Evangelina Ventimiglia BUS AND RAIL OPERATOR Bipolar depression active Evangelina Ventimigli a BUS AND RAIL OPERATOR Hyperlipidemia active Evangelina Ventimiglia FN P Schizophrenia active Evangelina Ventimiglia BUS AND RAIL OPERATOR PTSD active Evangelina Ventimiglia BUS AND RAIL OPERATOR Fibromyalgia active Evangelina Ventimiglia BUS AND RAIL OPERATOR Graves' disease active Evangelina Ventimiglia F DE IONIZER OPERATOR Epilepsy active Evangelina Ventimiglia [employer] AND RAIL OPERATOR Cardiology examination completed 3 - Yolanda Celestin MD ENCOUNTERS Date Type Provider Location Encounter Diag nosis 12/08 - 12/08 In-person encounter Office Visit Yolanda Celestin MD [facility] 11/10 - 11/23 In-person encounter Office Visit Yolanda Celestin MD [facility] Abnormal nuclear stress test 10/13 - 10/14 In-person encounter Office Visit Yolanda Celestin MD [facility] Cardiology examinationTiredness and Fati fadi 10/01 - 10/13 In-person encounter Office Visit Yolanda Celestin MD [facility] 09/03 - 09/04 In-person encounter Office Visit Yolanda Celestin MD [facility] Cardiology examination 08/06 - 08/12 In-person encounter Office Visit Yolanda Celestin MD [facility] EpilepsyGraves' diseaseFibromyalgiaPTSDSchizophreniaHyperlipidemiaBi polar depressionChest painSyncopeTobacco abuse VITAL SIGNS Date Observation Value Provider Body Mass Index (Ratio) 26.71 kg/m2 Eloina Celestin MD blood pressure, diastolic 54 mm[Hg] Am mesha Ventimiglia [facility] blood pressure, systolic 106 mm[Hg] [place] nda Ventimiglia [facility] oxygen saturation, oximetry 99 % Evangelina Ventimiglia [facility] respiratory rate E&M 14 /min Evangelina Ventimiglia [facility] pulse rate 77 /min Evangelina Ventimig teddy [facility] height E&M 63 [in_i] Evangelina Ventimig teddy [facility] weight E&M 150.8 [lb_av] Evangelina Ventimi glia [facility] Body Mass Index (Ratio) 25.86 kg/m2 Eloina Celestin MD blood pressure, diastolic 83 mm[Hg] Ka yla Ruple blood pressure, systolic 117 mm[Hg] Clary la Ruple oxygen saturation, oximetry 98 % Meghna Ruple pulse rate 73 /min [facility] E&M 146 [lb_av] [facility] height E&M 63 [in_i] Meghna [facility] Body Mass Index (Ratio) 25.97 kg/m2 Eloina Celestin MD blood pressure, cuff size regular Marcus nelson Mcdaniels blood pressure, diastolic 74 mm[Hg] Marcus nelson Mcdaniels blood pressure, systolic 107 mm[Hg] Radha kasper Mcdaniels oxygen saturation, oximetry 97 % [facility] pulse rate 73 /min [facility] weight E&M 146.6 [lb_av] [facility] height E&M 63 [in_i] [facility] Body Mass Index (Ratio) 24.62 kg/m2 [...] Emma clayton height E&M 63 [in_i] Emma [facility] blood pressure, diastolic 72 mm[Hg] Li nkLog [...] TABLET BY MOUTH TWICE DAILY Evangelina Gaytanmiglia BUS AND RAIL OPERATOR Topamax 50 mg tablet active 1 tablet by mouth once a day Evangelina Gaytanmigllolis [facility] escitalopram oxalate 10 mg tablet active Evangelina Ventimiglia BUS AND RAIL OPERATOR lidocaine 4% adhesive patch,medicated active Apply 1 patch to skin once a day for pain Yolanda Celestin MD aripiprazole 20 mg tablet active 1 tablet by mouth once a day Evangelina Ventimiglia BUS AND RAIL OPERATOR sertraline 100 mg tablet completed - Evangelina Ventimiglia BUS AND RAIL OPERATOR levothyroxine 100 mcg tablet active Take 1 tablet by mouth once a day Evangelina Ventimiglia BUS AND RAIL OPERATOR levetiracetam 500 mg tablet active 1 tablet by mouth once a day Evangelina Ventimiglia BUS AND RAIL OPERATOR atorvastatin 40 mg tablet active TAKE 1 TABLET BY MOUTH EVERYDAY AT BEDTIME Evangelina Ventimiglia BUS AND RAIL OPERATOR lacosamide 200 mg tablet active Joel gabapentin 800 mg tablet active 1 tablet by mouth three times a day Evangelina Ventimiglia BUS AND RAIL OPERATOR pramipexole 0.25 mg tablet active Joel trazodone 100 mg tablet active Joel SOCIAL HISTORY Date Observation Value Provider personal history of marijuana use yes Evangelina Ventimiglia [facility] drug use no Evangelina Ventimig teddy BUS AND RAIL OPERATOR alcohol use no Evangelina Ventimig teddy BUS AND RAIL OPERATOR smoking, year quit 2022 Evangelina Ve ntimiglia [facility] smoking history, tot al pack/day 1 1/2 Evangelina Ventimiglia BUS AND RAIL OPERATOR cigarette use yes Evangelina Ventimi glia BUS AND RAIL OPERATOR smoking status Former smoker Evangelina Lucila miglia [facility] personal history of marijuana use yes Evangelina Ventimiglia BUS AND RAIL OPERATOR drug use no Evangelina Ventimig teddy BUS AND RAIL OPERATOR alcohol use no Evangelina Ventimig etddy BUS AND RAIL OPERATOR smoking, year quit 2022 Evangelina Ve ntimiglia [facility] smoking history, tot al pack/day 1 1/2 Evangelina Ventimiglia BUS AND RAIL OPERATOR cigarette use yes Evangelina Ventimi glia BUS AND RAIL OPERATOR smoking status Former smoker Evangelina Lucila miglia [facility] number of grandchildren Yolanda Celestin MD smoking, [...] smoking, year quit 2022 Evangelina Ve ntimiglia BUS AND RAIL OPERATOR smoking history, tot al pack/day 1 1/2 Evangelina Ventimiglia BUS AND RAIL OPERATOR cigarette use yes Joel Olmos ay smoking status Former smoker Evangelina Venti miglia [facility] INSURANCE PROVIDERS Payer name Policy type / Coverage type [place] [employer] [facility] (2[facility] Medicaid [id number] ADVANCE DIRECTIVES Name Date DISCUSSED - NO DECISION MADE TREATMENT PLAN Date Name Performer [id number],C,No further ep isodes Yolanda Celestin MD [id number],C,C ontinues to experience intermittent CP. Pain is [...] will send lidocaine patch Yolanda Celestin MD [id number],C,C ontinues on statin, aim for LDL less than 70 Her updated medication list for this problem includes: Atorvastatin 40 Mg Tablet (Atorvastatin) Yolanda Celestin MD [id number],C,P t states she has been having more seizures than usual since last visit Her updated medication list for this problem includes: Levetiracetam 500 Mg Tablet (Levetiracetam) Lacosamide 200 Mg Tablet (Lacosamide) Gabapentin 800 Mg Tablet (Gabapentin) Yolanda Celestin MD [id number],C,S tress test showed no evidence of exercise-induced myocardial ischemia, but pt states she experienced a panic attack during the test. Carotid US showed normal carotid duplex examination. ECHO was normal. She continues to experience intermittent CP. S he states she had panic attack during routine stress test. We will arrange for regadenoson stress test. Yolanda Celestin MD [id number],C,N o further episodes of syncope. Stress test showed no evidence of exercise-induced myocardial ischemia, but pt states she experienced a panic attack during the test. Carotid US showed normal carotid duplex examination. ECHO was normal. Yolanda Celestin MD [id number],C,N o recent occurrence Her updated medication list for this problem includes: Levetiracetam 500 Mg Tablet (Levetiracetam) Lacosamide 200 Mg Tablet (Lacosamide) Gabapentin 800 Mg Tablet (Gabapentin) Yolanda Celestin MD [id number],C, H er updated medication list for this problem includes: Atorvastatin 40 Mg Tablet (Atorvastatin) Yolanda Celestin MD [id number],S,quit 1 week a go Evangelina Ventimiglia [facility] [id number],C,pt denies rec ent seizure Evangelina Ventimiglia [facility] [id number],S,p er pt reports, etiology unclear s he does have known hx of seizures w ill plan tele monitor to rule out arrythmia I n SR today w ill plan carotids as well Evangelina Ventimiglia [facility] [id number],S,w ill obtain records from most recent hospital viist H er updated medication list for this problem includes: Atorvastatin 40 Mg Tablet (Atorvastatin) Evangelinamesha Mariano [facility] [id number],S,s omewhat atypical is constant in nature d oes have risk factor for CAD with HLD, tobacco abuse, multiple ER visits, and family hx w ill plan stress and echo for further eval [facility] Cardiology:cessation encouraged [facility] Cardiology [facility] Cardiology: H er updated medication list for this problem includes: Atorvastatin 40 Mg Tablet (Atorvastatin) ..... Take 1 tablet by mouth everyday at bedtime [facility] Cardiology:She has c ontinued chest pain with an unclear etiology W ill trial ranexa to see if helps with spasm C ardiac cath showed normal coronaries with normal EF of 60% H er updated medication list for this problem includes: Ranolazine 500 Mg Tablet Extended Release 12 Hr (Ranolazine) ..... Take 1 tablet by mouth twice daily [facility] Cardiology: C ontinues on atorvastatin. Yolanda Celestin [...] will send lidocaine patch Yolanda Celestin MD Cardiology:Continues on statin, aim for LDL [...] Cardiology:quit 1 week ago Amestefanía ren Lucilamicarlyia [facility] Cardiology:pt denies recent seiz ure Evangelina Ventimiglia [facility] Cardiology:per pt re ports, etiology unclear s he does have known hx of seizures w ill plan tele monitor to rule out arrythmia I n SR today w ill plan carotids as well Evangelina Lucilamiglia [facility] Cardiology:will obta in records from most recent hospital viist H er updated medication list for this problem includes: Atorvastatin 40 Mg Tablet (Atorvastatin) Evangelina Ventimiglia [facility] Cardiology:somewhat atypical is constant in nature d oes have risk factor for CAD with HLD, tobacco abuse, multiple ER visits, and family hx w ill plan stress and echo for further eval Evangelinamesha Gaytanmiglia [facility] Date Name Stress Regadenoson Echo with Bubbles [...]
--- OUTSIDE RECORDS SUMMARY | 2025-04-20 14:51 | XMS_ITS | Clinical Summary ---
Author Organization [facility] Address [address] [place] [address] Care Team Providers Care Rotary Lithographic Press Operator Name Role Phone Aravind Menendez APRN-[employer]ANG[employer] Primary Care Provide r Source Comments [facility] [employer],non-owned Affiliates and Associated Physician Practices is amultiple site organization consisting of ambulatory clinics and hospital sitesin [place], [place], [place] and [place]. This disclosure is being madepursuant to the Care Everywhere program and may not contain all information available regarding this patient. Last updated 18.[facility] [employer] Allergies Active Allergy Reactions Criticality Noted Date [...] care, and heating? Not very hard 07/07/2024 [facility] - [facility] [...] place to sleep or slept in a care home (including now)? No 07/07/2024 Comments Unknown Sex [...] Visit [facility] - [facility] [address] [place] [id number] Isela Robison APRN-[employer]ANG[employer] [address] [place] [id number] Health Maintenance Due Date Last Done Comments [...] - 26 mg/dL 07/07/2024 1:16 AM CDT [facility] Creatinine 0.92 0.56 - 0.96 mg/dL 07/07/2024 1:16 AM CDT [facility] Sodium 142 136 - 145 mmol/L 07/07/2024 1:16 AM CDT [facility] Potassium 3.4(L) 3.5 - 4.5 mmol/L 07/07/2024 1:16 AM [facility] Chloride 111(H) 98 - 107 mmol/L 07/07/2024 1:16 AM [facility] CO2 24 22 - 29 mmol/L 07/07/2024 1:16 AM [facility] Glucose 93 70 - 115 mg/dL 07/07/2024 1:16 AM [facility] Calcium 8.5 8.4 - 10.2 mg/dL 07/07/2024 1:16 AM [facility] Anion Gap 7 6 - 16 07/07/2024 1:16 AM [facility] BUN/Creatinine Ratio 16 7 - 23 07/07/2024 1:16 AM [facility] Osmolality Calculated 295 275 - 295 mOsm/kg 07/07/2024 1:16 AM [facility] eGFR by CKD-EPI 76(L) >=90 mL/min/1.7 3 m2 07/07/2024 1:16 AM [facility] Blood BLOOD SPECIMEN / Unknown Venipuncture / Unknown 07/07/2024 12:33 AM CDT 07/07/2024 12:46 AM T us Miguel A Simpson DO LAB - CHEMISTRY ORDERABLES Fin al Result Performing Organization Address City/State/[facility] Co de Phone Number [facility] [address] [place] [address], [facility] [phone] from Last 3 Months or Most Recently Relevant to Health Maintenance Insurance [facility] * Guarantor: HIMANSHU YOUNG Account Type [...] 11:30 AM 03/07/2024 1:13 PM Care Teams Rotary Lithographic Press Operator Relationship Specialty Start Date End Date Aravind Menendez, CAROUSEL OPERATOR-[employer] [address] [place] [address] (work) PCP - General 06/07/21
--- NOTE | 2025-04-20 16:05 | ECG_ITS ---
Test Date: 2025-04-20 16:08:23 Measurements Intervals Avery Rate: 57 P: 46 WY: 174 QRS: 69 QRSD: 85 T: 43 QT: 443 QTc: 432 Interpretive Statements SINUS BRADYCARDIA Compared to ECG 04/20/2025 12:21:39 Sinus rhythm no longer present Electronically Signed On 04-21-2025 15:12:22 CDT by Hernesto Camp M.D.
[2025-04-20 16:19] LABS: Troponin I < 0.012 ng/mL (0.000-0.034)
[2025-04-20 16:40] LABS: NT Pro B Type Natriuretic Pept < 20 pg/mL (19.9-100)
[2025-04-20 17:04] LABS: D Dimer < 0.27 ug/mL (<0.48)
[2025-04-20] MEDS: ACETAMINOPHEN 500 MG TABLET 1000 MG PO (17:05)
[2025-04-20 17:18] LABS: Influenza A QL RT-PCR Negative (Negative); Influenza B QL RT-PCR Negative (Negative); RSV RNA, RT-PCR Negative (Negative); SARS-CoV-2 RNA PCR Negative (Negative)
== END 2025-04-20 18:40 | disposition home or self-care (01) ==
PROVIDERS: Emergency Medicine; Emergency Provider Emergency Medicine; PCP Internal Medicine
DX: R07.89 Other chest pain (principal); Z85.038 Personal history of other malignant neoplasm of large intestine; G40.909 Epilepsy, unspecified, not intractable, without status epilepticus; K21.9 Gastro-esophageal reflux disease without esophagitis; E03.9 Hypothyroidism, unspecified; Z85.42 Personal history of malignant neoplasm of other parts of uterus; F31.9 Bipolar disorder, unspecified; F17.210 Nicotine dependence, cigarettes, uncomplicated; Z20.822 Contact with and (suspected) exposure to COVID-19
CPT/HCPCS: 36415; 71046; 80053; 83690; 83880; 84484; 85025; 85380; 85610; 85730; 87637; 93005; 99284; A9270